=== PATIENT | male | born 1960 | race Caucasian/White ===

== ENCOUNTER 2018-11-06 20:51 | Inpatient (IN) ==
--- NOTE | 2018-11-06 21:57 | ED ---
Triage General Chief Complaint: Back Pain/Injury Time Seen by Provider: 11/06/18 21:44 Source: patient Limitations: no limitations Pre-Hospital Care Pre-Hospital Care Given: No History of Present Illness HPI narrative: 58-year-old man presents to the emergency department complaining of back pain, rating to both legs associated with perineal anesthesia, worsening bilateral lower extremity numbness, and severe pain down especially the left side. History of similar problems, steadily worsening the past several weeks. Patient will be taken to a medical bed. Will place orders for labs and MRI. Percocet for pain. Concern for cauda equina syndrome. Exam Narrative Exam: GENERAL: 58-year-old man, looks overall well. SKIN: Warm and dry. CARDIOVASCULAR: Warm and well perfused. RESPIRATORY: Normal rate and effort. MUSCULOSKELETAL: Full strength in the lower extremities. Brisk left patellar reflexes. Nearly absent right patellar bilateral Achilles. No clonus. Patient states significant sensory loss in both legs below the knee NEUROLOGICAL: Awake and alert. No gross deficits. Home Meds Home Medications Medication Instructions Recorded Confirmed levothyroxine 88 mcg PO DAILY 04/20/18 04/20/18 Previous Rx's Medication Instructions Recorded diclofenac sodium 50 mg PO TID #30 tab 09/03/18 Allergies Allergies Allergy/AdvReac Type Severity Reaction Status Date / Time aspirin Allergy Hives Verified 11/06/18 21:04 PCN Allergy Severe Cardiac Uncoded 09/03/18 00:17 Arrest Vital Signs Recall Vital Signs: Initial Documented Vital Signs Temperature 98.1 F 11/06/18 21:04 Pulse Rate 84 11/06/18 21:04 Respiratory Rate 18 11/06/18 21:04 Blood Pressure 186/98 H 11/06/18 21:04 Pulse Oximetry 100 11/06/18 21:04 Last Documented Vital Signs Temperature 98.1 F 11/06/18 21:04 Pulse Rate 84 11/06/18 21:04 Respiratory Rate 18 11/06/18 21:04 Blood Pressure 186/98 H 11/06/18 21:04 Pulse Oximetry 100 11/06/18 21:04 Vital Signs 3 l l l l 11/06/18 21:04 l l Height 180.34 cm l l Weight 81.647 kg l l BMI 25.1 l l BP 186/98 H l l Blood Pressure Location l l Position Sitting l l Respiration 18 l l Pulse 84 l l Pulse Source l l Temp 98.1 F l l Temp Source Oral l l Pulse Oximetry (%) 100 l l Oxygen Delivery Method l l Oxygen Flow Rate l l Comment [facility] Social History Social History Substance History: Past History Second Hand Smoke Exposure: Yes Smoking Status: Current every day smoker Tobacco Type: Cigarettes How Often Do You Have a Drink Containing Alcohol: Monthly or less Recent Travel in [facility] within the Last 8 Weeks: No Recent Out of Country Travel within the Last 8 Weeks: No Immunization History Tetanus Immunization: <5 Years
--- NOTE | 2018-11-06 22:43 | MR ---
EXAM DATE: 11/06/2018 10:32 PM EST AGE/SEX: 58 years / Male INDICATIONS: Radiculopathy. Low back pain with left radiculopathy. CLINICAL DATA: This is the patient's initial encounter. Patient reports that signs and symptoms have been present for 1 day and indicates a pain score of 5/10. MEDICAL/SURGICAL HISTORY: None. . Jaw surgery. COMPARISON: No prior exams available for comparison. TECHNIQUE: Multiplanar, multisequence MRI of the lumbar spine was performed without contrast. Patie nt was scanned in a sitting position; neutral, flexion, and extension scans were performed in the sa gittal plane. FINDINGS: The most caudal-appearing lumbar vertebra is numbered as L5. There is grade 1 anterolisthesis of L4 on L5. There are no compression deformities. There is moderate bone marrow edema involving the left L4 pedicle and articular facet. There is surrounding paraspinal edema posteriorly. There is mild reactive endplate edema at L4-5. There is diffuse disc desiccation. There is motion artifact which limits this study particularly the axial series. T12-L1: The thecal sac has a normal diameter. No evidence of disc bulge or protrusion. The neural foramina are patent bilaterally. L1-L2: The thecal sac has a normal diameter. No evidence of disc bulge or protrusion. The neural foramina are patent bilaterally. L2-L3: Mild diffuse disc bulge is noted. Mild left foraminal narrowing is suspected. There is no de finite canal stenosis. L3-L4: A diffuse disc bulge is present. This likely abuts the L4 nerve roots and L3 exiting nerves. No significant canal or foraminal narrowing. Axial images degraded by motion artifact. L4-L5: There is a broad-based central disc protrusion suspected superimposed on diffuse disc bulge. There is severe canal stenosis. There is facet arthropathy and severe left, moderate right foraminal narrowing. L5-S1: Minimal central disc bulge without canal or foraminal narrowing. CONCLUSION: 1. Motion artifact limits the study. 2. There is a large central disc protrusion at L4-5 resulting in severe canal stenosis and mass effe ct on the associated nerve roots at this level. 3. Mild degenerative changes are otherwise noted. Electronically signed by: Chandana Aguirre MD Board Certified Radiologist 11/06/2018 10:42 PM EST
[2018-11-06 23:16] LABS: Baso # (Auto) 0.1 th/mm3 (0.0-0.2); Baso % (Auto) 0.9 % (0.0-2.0); Eos # (Auto) 0.3 th/mm3 (0.0-0.4); Eos % (Auto) 4.7 % (0.0-4.0); Hematocrit 38.8 % (39.0-51.0); Hemoglobin 13.1 gm/dL (13.0-17.0); Lymph # (Auto) 1.7 th/mm3 (1.0-4.8); Lymph % (Auto) 27.4 % (9.0-44.0); Mean Corpuscular HGB Conc 33.8 % (32.0-36.0); Mean Corpuscular Volume 91.7 fL (80.0-100.0); Mono # (Auto) 0.7 th/mm3 (0.0-0.9); Mono % (Auto) 11.3 % (0.0-8.0); Neut # (Auto) 3.5 th/mm3 (1.8-7.7); Neut % (Auto) 55.7 % (16.0-70.0); Platelet Count 319 th/mm3 (150-450); Red Blood Count 4.23 mil/mm3 (4.50-5.90); Red Cell Distribution Width 13.8 % (11.6-17.2); White Blood Count 6.2 th/mm3 (4.0-11.0)
[2018-11-06 23:31] LABS: Albumin 4.3 g/dL (3.4-5.0); Aspartate Aminotransferase 54 U/L (15-37); Blood Urea Nitrogen 12 mg/dL (7-18); Calcium 9.2 mg/dL (8.5-10.1); Carbon Dioxide 25.5 meq/L (21.0-32.0); Glomerular Filtration Rate Greater Than 89 mL/min (>89); Glucose,Random 81 mg/dL (74-106)
[2018-11-06 23:32] LABS: Alanine Aminotransferase 50 U/L (12-78)
[2018-11-06 23:34] LABS: Alkaline Phosphatase 105 U/L (45-117); Total Protein 7.9 g/dL (6.4-8.2)
[2018-11-06] MEDS ORDERED: Acetaminophen 325 MG Tablet PO PRN (23:52)
[2018-11-06] MEDS ORDERED: Bisacodyl 10 MG Supp RECTAL PRN (23:52)
[2018-11-07 00:28] LABS: Anion Gap 9 meq/L (5-15); Chloride 101 meq/L (98-107); Sodium 135 meq/L (136-145)
--- NOTE | 2018-11-07 01:36 | P.HPIM ---
History of Present Illness Primary Care Physician: No Primary Care Physician History of Present Illness: 58-year-old male with a history of hypothyroidism who presents with a one month history of progressively worsening bilateral lower extremity weakness, burning paresthesias, numbness worse on the left, as well as a 3-week history of worsening saddle anesthesia, bilateral leg weakness with prolonged ambulation. Patient did not have a ride home from work today and was forced to walk home, however is unable to get more than a block before he has to lean forward to prevent his legs from giving out on him. Inpatient Certification: I certify that the inpatient services were ordered in accordance with Medicare regulations governing the order. This includes certification that hospital inpatient services are reasonable and necessary and in the case of services not specified as inpatient-only under 42 CFR 419.22(n), that they are appropriately provided as inpatient services in accordance to with the 2-midnight benchmark under 43 CFR 412.3(e) Estimated Total Length of Stay (Days): 2 Plans for Post Hospital Care: Not yet determined Review of Systems All other systems reviewed negative except as stated in HPI [facility] - History History Provided By: Patient - Medical History Medical History: Medical History (Last Reviewed 11/07/18 @ 01:26 by Devin Crawford MD) Hypothyroid - Surgical History Surgical History: Surgical History (Last Reviewed 11/07/18 @ 01:26 by Devin Crawford MD) No history of previous surgery - Family History Family History: Family History (Last Updated 11/07/18 @ 01:27 by Devin Crawford MD) Father Healthy adult male Mother Heart disease - Tobacco History Second Hand Smoke Exposure: Yes Tobacco Use In Past 30 Days: Yes Smoking Status: Current every day smoker Tobacco Type: Cigarettes - Alcohol History How Often Do You Have a Drink Containing Alcohol: Monthly or less - Substance Use History Substance History: Past History - Travel History Recent Travel in the [place] Within the Last 8 Weeks: No Recent Travel Out of the Country Within the Last 8 Weeks: No - Immunization History Tetanus Immunization: <5 Years Medications and Allergies Active Medications: Active Medications Acetaminophen (Tylenol) 650 mg PO Q4H PRN PRN Reason: Temp > 100.4 Al Hydroxide/Mg Hydroxide (Milk Of Magnesia Liq) 30 ml PO Q12H PRN PRN Reason: Mild Constipation Bisacodyl (Dulcolax Supp) 10 mg RECTAL DAILY PRN PRN Reason: SEVERE CONSITIPATION Dexamethasone Sodium Phosphate (Decadron Inj) 4 mg IV.PUSH Q6HR [facility] Last Admin: 11/07/18 00:01 Dose: Not Given Enalaprilat (Vasotec Inj) 1.25 mg IV.PUSH Q6H PRN PRN Reason: SBP>180, DBP>100, HR>65 Sodium Chloride (Ns Inj) 1,000 mls @ 100 mls/hr IV.CONT .Q10H [facility] Last Admin: 11/07/18 00:00 Dose: 100 mls/hr Lactulose (Lactulose Liq) 30 ml PO DAILY PRN PRN Reason: SEVERE CONSITIPATION Levothyroxine Sodium (Synthroid) 88 mcg PO DAILY@0600 [facility] Ondansetron HCl (Zofran Inj) 4 mg IV.PUSH Q6H PRN PRN Reason: NAUSEA OR VOMITING Sennosides (Senokot) 17.2 mg PO Q12H PRN PRN Reason: Moderate Constipation Sodium Chloride (Ns Flush) 2 ml IV.FLUSH BID LOKESH Sodium Chloride (Ns Flush) 2 ml IV.FLUSH PRN PRN PRN Reason: FLUSH AFTER USING IV ACCESS Allergies Allergy/AdvReac Type Severity Reaction Status Date / Time aspirin Allergy Hives Verified 11/06/18 21:04 PCN Allergy Severe Cardiac Uncoded 09/03/18 00:17 Arrest Home Medications Medication Instructions Recorded Confirmed Type levothyroxine 88 mcg PO DAILY 04/20/18 11/06/18 History Physical Exam Vital signs: Vital Signs 11/06/18 21:04 11/07/18 00:46 Temperature 98.1 F Pulse Rate 84 Respiratory Rate 18 20 Blood Pressure 186/98 H Pulse Oximetry 100 Intake & Output 11/06/18 11/06/18 11/07/18 06:59 18:59 06:59 Weight 81.647 kg Narrative: GENERAL: Patient lying in bed. Appears comfortable. Alert and oriented x3. SKIN: Warm and dry. HEAD: Atraumatic. Normocephalic. EYES: Pupils equal and round. No scleral icterus. No injection or drainage. ENT: No nasal bleeding or discharge. Mucous membranes pink and moist. NECK: Trachea midline. No JVD. CARDIOVASCULAR: Regular rate and rhythm. RESPIRATORY: No accessory muscle use. Clear to auscultation. Breath sounds equal bilaterally. GASTROINTESTINAL: Abdomen soft, non-tender, nondistended. Hepatic and splenic margins not palpable. MUSCULOSKELETAL: Extremities without clubbing, cyanosis, or edema. No obvious deformities. NEUROLOGICAL: Awake and alert. No obvious cranial nerve deficits. Motor grossly within normal limits. Five out of 5 muscle strength in the arm. Bilateral leg weakness, decreased sensation. Normal speech. PSYCHIATRIC: Appropriate mood and affect; insight and judgment normal. Results - Labs CBC & Chem 7: 11/06/18 23:00 11/06/18 23:00 Labs: Short CBC 11/06/18 Range/Units 23:00 WBC 6.2 (4.0-11.0) th/mm3 Hgb 13.1 (13.0-17.0) gm/dL Hct 38.8 L (39.0-51.0) % Plt Count 319 (150-450) th/mm3 BMP 11/06/18 23:00 Sodium 135 L Potassium 4.0 Chloride 101 Carbon Dioxide 25.5 BUN 12 Creatinine 0.75 Calcium 9.2 Liver Function 11/06/18 Range/Units 23:00 Total Bilirubin 0.6 (0.2-1.0) mg/dL AST 54 H (15-37) U/L ALT 50 (12-78) U/L Alkaline Phosphatase 105 (45-117) U/L Albumin 4.3 (3.4-5.0) g/dL - Imaging Impressions Lumbar Spine MRI 11/06/18 21:52 CONCLUSION: 1. Motion artifact limits the study. 2. There is a large central disc protrusion at L4-5 resulting in severe canal stenosis and mass effect on the associated nerve roots at this level. 3. Mild degenerative changes are otherwise noted. Caprini VTE Risk Assessment Caprini VTE Risk Assessment: No/Low Risk (score <= 1) Caprini Risk Assessment Model: Point Value = 1 Point Value = 2 Point Value = 3 Point Value = 5 Age 41-60 Minor surgery BMI > 25 kg/m2 Swollen legs Varicose veins or History of unexplained or recurrent spontaneous Oral contraceptives or hormone replacement Sepsis (< 1 month) Serious lung disease, including pneumonia (< 1 month) Abnormal pulmonary function Acute myocardial infarction Congestive heart failure (< 1 month) History of inflammatory bowel disease Medical patient at bed rest Age 61-74 Arthroscopic surgery Major open surgery (> 45 min) Laparoscopic surgery (> 45 min) Malignancy Confined to bed (> 72 hours) Immobilizing plaster cast Central venous access Age >= 75 History of VTE Family history of VTE Factor V Leiden Prothrombin [id number] Lupus anticoagulant Anticardiolipin antibodies Elevated serum homocysteine Heparin-induced thrombocytopenia Other congenital or acquired thrombophilia Stroke (< 1 month) Elective arthroplasty Hip, pelvis, or leg fracture Acute spinal cord injury (< 1 month) Prophylaxis Regimen: Total Risk Factor Score Risk Level Prophylaxis Regimen 0-1 Low Early ambulation 2 Moderate Order ONE of the following: *Sequential Compression Device (SCD) *Heparin 5000 units SQ BID 3-4 Higher Order ONE of the following medications: *Heparin 5000 units SQ TID *Enoxaparin/Lovenox 40 mg SQ daily (WT < 150 kg, CrCl > 30 mL/min) *Enoxaparin/Lovenox 30 mg SQ daily (WT < 150 kg, CrCl > 10-29 mL/min) *Enoxaparin/Lovenox 30 mg SQ BID (WT < 150 kg, CrCl > 30 mL/min) AND/OR *Sequential Compression Device (SCD) 5 or more Highest Order ONE of the following medications: *Heparin 5000 units SQ TID (Preferred with Epidurals) *Enoxaparin/Lovenox 40 mg SQ daily (WT < 150 kg, CrCl > 30 mL/min) *Enoxaparin/Lovenox 30 mg SQ daily (WT < 150 kg, CrCl > 10-29 mL/min) *Enoxaparin/Lovenox 30 mg SQ BID (WT < 150 kg, CrCl > 30 mL/min) AND *Sequential Compression Device (SCD) Assessment and Plan - Plan //Acute, severe spinal canal stenosis -With saddle anesthesia. MRI shows large central disc protrusion at L4-5 resulting in severe canal stenosis and mass-effect on associated nerve roots. The ER has discussed with neurosurgery who is planning for surgery in the morning. Will place on IV dexamethasone. Neurochecks. //Chronic hypothyroidism. Continue home medication. Discussed Condition With: Patient, nurse, ED physician.
[2018-11-07] MEDS: Morphine Sulfate Inj 2 MG/ML Vial IV.PUSH PRN ×6 (05:03→21:18)
--- NOTE | 2018-11-07 05:13 | ED ---
HPI General Chief Complaint: Back Pain/Injury Stated Complaint: back Pain Time Seen by Provider: 11/06/18 21:44 Source: patient Limitations: no limitations History of Present Illness HPI Narrative: 58-year-old male presents to the emergency department for progressively worsening low back pain with paresthesias of the lower extremities and difficulty with ambulation. Patient denies any bladder or bowel dysfunction. Patient denies any injury or fall. Patient states he presents at this time as he can no longer ambulate. Patient was initially evaluated in triage and MRI was ordered in view of concern for significant lumbar disc disease and concern for need for evaluation for cauda equina syndrome. Patient's MRI was identified to be markedly abnormal. Patient denies other concerns or complaints. Patient does admit to alcohol use. Patient is no longer followed by a primary care provider. Complaint: Reports back pain Onset (ago): month(s) Duration: Reports progressively worsening Location: Reports lumbar spine Severity: severe Quality: Reports dull, aching and tingling Radiation: Reports left leg and right leg Severity scale (1-10): 9 Relieving factors: none Exacerbating factors: movement and walking Associated symptoms: Reports weakness, numbness, difficulty walking, loss of sensation in lower extremities and parasthesias; Denies increased urinary urgency, increased urinary frequency, urinary incontinence, fecal incontinence, a change in bowel habits, fever, chills, abdominal pain, dysuria, hematuria, arthralgias and myalgias Treatments prior to arrival: Denies cold therapy, heat therapy, NSAIDS, acetaminophen, ASA, other medications and prescription analgesics Related Data Home Medications Medication Instructions Recorded Confirmed levothyroxine 88 mcg PO DAILY 04/20/18 11/06/18 Allergies Allergy/AdvReac Type Severity Reaction Status Date / Time aspirin Allergy Hives Verified 11/06/18 21:04 PCN Allergy Severe Cardiac Uncoded 09/03/18 00:17 Arrest Review of Systems ROS: all other systems reviewed are negative PENDING SALE TO [facility] Medical History Medical History Hypothyroid (Acute) Surgical History Surgical History No history of previous surgery (Acute) Family History Family History Father Healthy adult male Mother Heart disease Social History Social History Substance History: Active Abuse (Patient is an active drug user. He tells me that he last used drugs about 48 hours ago. He uses cocaine and methamphetamine. He denies needle use.) Second Hand Smoke Exposure: No Smoking Status: Never smoker Tobacco Type: Cigarettes How Often Do You Have a Drink Containing Alcohol: 2 to 4 times a month Recent Travel in [facility] within the Last 8 Weeks: No Recent Out of Country Travel within the Last 8 Weeks: No Immunization History Tetanus Immunization: <5 Years Exam Narrative Exam Narrative: GENERAL: Well-nourished, well-developed patient. SKIN: Focused skin assessment warm/dry. HEAD: Normocephalic. EYES: No scleral icterus. No injection or drainage. NECK: Supple, trachea midline. No JVD or lymphadenopathy. CARDIOVASCULAR: Regular rate and rhythm without murmurs, gallops, or rubs. RESPIRATORY: Breath sounds equal bilaterally. No accessory muscle use. GASTROINTESTINAL: Abdomen soft, non-tender, nondistended. Rectal exam: Normal sphincter tone MUSCULOSKELETAL: No cyanosis, or edema. Bilateral lower extremity weakness with pain on attempted straight leg raising. DTRs 2-3+ at knees and ankles no clonus. Sensory exam intact. BACK: Nontender without obvious deformity except for tenderness to palpation along the lower lumbar spine without bony step-off. No CVA tenderness. Course Initial Documented Vital Signs Temperature 98.1 F 11/06/18 21:04 Pulse Rate 84 11/06/18 21:04 Respiratory Rate 18 11/06/18 21:04 Blood Pressure 186/98 H 11/06/18 21:04 Pulse Oximetry 100 11/06/18 21:04 Last Documented Vital Signs Temperature 97.4 F L 11/08/18 07:56 Pulse Rate 59 L 11/08/18 07:56 Respiratory Rate 18 11/08/18 07:56 Blood Pressure 120/63 11/08/18 07:56 Pulse Oximetry 98 11/08/18 07:56 Medical Decision Making MDM Narrative Medical decision making narrative: 58-year-old male with lumbar radiculopathy concerning for cauda equina syndrome with intact sphincter tone and no evidence of bladder or bowel dysfunction at this time. However MRI shows marked abnormality with large central disc protrusion at L4-5 with severe canal stenosis and mass-effect on the nerve root at this level per reading radiologist. This information was discussed with on-call neurosurgeon who plans to review imaging study is aware of plan for admission of this patient to medicine service with consult to neurosurgery. Patient administered Decadron 6 mg IV this was discussed with on-call neurosurgeon Dr. Prajapati. Callback from Dr. Prajapati, request patient be kept n.p.o. as he has had opportunity to review imaging study and plans to do decompressive surgery tomorrow. Patient was discussed with on-call medicine physician Dr. Crawford who will accept patient for admission and is aware of neurosurgery consult. Medical Screen Exam Complete: Yes Emergency Medical Condition: Yes Differential Diagnosis Differential Diagnosis: Lumbar radiculopathy, cauda equina syndrome, mass Medical Records Medical records reviewed: Yes I reviewed the patient's medical records. Lab Data Lab results reviewed: Yes I reviewed the patient's lab results. Result diagrams: 11/07/18 06:10 11/07/18 06:10 Lab Results 11/06/18 11/06/18 11/07/18 Range/Units 23:00 23:00 06:10 WBC 6.2 4.1 (4.0-11.0) th/mm3 RBC 4.23 L 4.18 L (4.50-5.90) mil/mm3 Hgb 13.1 13.0 (13.0-17.0) gm/dL Hct 38.8 L 39.2 (39.0-51.0) % MCV 91.7 93.6 (80.0-100.0) fL MCH 31.0 31.2 (27.0-34.0) pg MCHC 33.8 33.3 (32.0-36.0) % RDW 13.8 13.8 (11.6-17.2) % Plt Count 319 314 (150-450) th/mm3 MPV 8.0 8.3 (7.0-11.0) fL Neut % (Auto) 55.7 85.2 H (16.0-70.0) % Lymph % (Auto) 27.4 13.0 (9.0-44.0) % Marin % (Auto) 11.3 H 1.3 (0.0-8.0) % Eos % (Auto) 4.7 H 0.2 (0.0-4.0) % Baso % (Auto) 0.9 0.3 (0.0-2.0) % Neut # (Auto) 3.5 3.5 (1.8-7.7) th/mm3 Lymph # (Auto) 1.7 0.5 L (1.0-4.8) th/mm3 Marin # (Auto) 0.7 0.1 (0.0-0.9) th/mm3 Eos # (Auto) 0.3 0.0 (0.0-0.4) th/mm3 Baso # (Auto) 0.1 0.0 (0.0-0.2) th/mm3 WBC Differential . . Differential Comment Auto diff final Auto diff final Sodium 135 L (136-145) meq/L Potassium 4.0 (3.5-5.1) meq/L Chloride 101 (98-107) meq/L Carbon Dioxide 25.5 (21.0-32.0) meq/L Anion Gap 9 (5-15) meq/L BUN 12 (7-18) mg/dL Creatinine 0.75 (0.60-1.30) mg/dL Estimated GFR Greater than 89 (>89) mL/min Random Glucose 81 (74-106) mg/dL Calcium 9.2 (8.5-10.1) mg/dL Total Bilirubin 0.6 (0.2-1.0) mg/dL AST 54 H (15-37) U/L ALT 50 (12-78) U/L Alkaline Phosphatase 105 (45-117) U/L Total Protein 7.9 (6.4-8.2) g/dL Albumin 4.3 (3.4-5.0) g/dL 11/07/18 Range/Units 06:10 WBC (4.0-11.0) th/mm3 RBC (4.50-5.90) mil/mm3 Hgb (13.0-17.0) gm/dL Hct (39.0-51.0) % MCV (80.0-100.0) fL MCH (27.0-34.0) pg MCHC (32.0-36.0) % RDW (11.6-17.2) % Plt Count (150-450) th/mm3 MPV (7.0-11.0) fL Neut % (Auto) (16.0-70.0) % Lymph % (Auto) (9.0-44.0) % Marin % (Auto) (0.0-8.0) % Eos % (Auto) (0.0-4.0) % Baso % (Auto) (0.0-2.0) % Neut # (Auto) (1.8-7.7) th/mm3 Lymph # (Auto) (1.0-4.8) th/mm3 Marin # (Auto) (0.0-0.9) th/mm3 Eos # (Auto) (0.0-0.4) th/mm3 Baso # (Auto) (0.0-0.2) th/mm3 WBC Differential Differential Comment Sodium 138 (136-145) meq/L Potassium 4.0 (3.5-5.1) meq/L Chloride 103 (98-107) meq/L Carbon Dioxide 25.2 (21.0-32.0) meq/L Anion Gap 10 (5-15) meq/L BUN 13 (7-18) mg/dL Creatinine 0.69 (0.60-1.30) mg/dL Estimated GFR Greater than 89 (>89) mL/min Random Glucose 91 (74-106) mg/dL Calcium 8.9 (8.5-10.1) mg/dL Total Bilirubin 0.4 (0.2-1.0) mg/dL AST 51 H (15-37) U/L ALT 47 (12-78) U/L Alkaline Phosphatase 98 (45-117) U/L Total Protein 7.5 (6.4-8.2) g/dL Albumin 3.8 (3.4-5.0) g/dL Imaging Data Radiologist's impression: Lumbar Spine MRI 11/06/18 21:52 CONCLUSION: 1. Motion artifact limits the study. 2. There is a large central disc protrusion at L4-5 resulting in severe canal stenosis and mass effect on the associated nerve roots at this level. 3. Mild degenerative changes are otherwise noted. Lumbar Spine X-Ray 11/07/18 00:00 CONCLUSION: Probe at L4-5 Chest X-Ray 11/07/18 09:00 CONCLUSION: No evidence of acute cardiopulmonary disease. Discharge Plan Discharge Disposition Patient Disposition: ED Admit(ED Internal Use Only) Discharge Condition Condition: Stable Discharge Order Discharge Orders: ED Use Only Admit Order (Routine); Ordered 11/06/18 Ordered By: Justyna Mcmahon Discharge Details Diagnosis: Lumbar radiculopathy Physicians Team ED Provider: Justyna Mcmahon Primary Care Provider: Primary Care Niki Carrion Attending Provider: Holger Steen Other Providers: Renny Prajapati Status ED Status: Left Department Discharge Information Discharge Date/Time: 11/07/18 03:57
[2018-11-07] MEDS: Levothyroxine 88 MCG Tablet PO SCH (06:07)
[2018-11-07 07:14] LABS: Baso % (Auto) 0.3 % (0.0-2.0); Eos % (Auto) 0.2 % (0.0-4.0); Hematocrit 39.2 % (39.0-51.0); Lymph # (Auto) 0.5 th/mm3 (1.0-4.8); Mean Corpuscular HGB Conc 33.3 % (32.0-36.0); Mean Corpuscular Hemoglobin 31.2 pg (27.0-34.0); Mean Corpuscular Volume 93.6 fL (80.0-100.0); Mean Platelet Volume 8.3 fL (7.0-11.0); Mono # (Auto) 0.1 th/mm3 (0.0-0.9); Mono % (Auto) 1.3 % (0.0-8.0); Neut # (Auto) 3.5 th/mm3 (1.8-7.7); Neut % (Auto) 85.2 % (16.0-70.0); Platelet Count 314 th/mm3 (150-450); Red Blood Count 4.18 mil/mm3 (4.50-5.90); Red Cell Distribution Width 13.8 % (11.6-17.2); White Blood Count 4.1 th/mm3 (4.0-11.0)
[2018-11-07 07:34] LABS: Albumin 3.8 g/dL (3.4-5.0); Anion Gap 10 meq/L (5-15); Aspartate Aminotransferase 51 U/L (15-37); Blood Urea Nitrogen 13 mg/dL (7-18); Calcium 8.9 mg/dL (8.5-10.1); Carbon Dioxide 25.2 meq/L (21.0-32.0); Chloride 103 meq/L (98-107); Glomerular Filtration Rate Greater Than 89 mL/min (>89); Glucose,Random 91 mg/dL (74-106); Sodium 138 meq/L (136-145)
[2018-11-07 07:36] LABS: Alanine Aminotransferase 47 U/L (12-78)
[2018-11-07 07:38] LABS: Alkaline Phosphatase 98 U/L (45-117); Total Protein 7.5 g/dL (6.4-8.2)
[2018-11-07] MEDS ORDERED: Influenza (Quadrivalent) Vaccine 0.5 ML Syringe IM ONE (08:00)
[2018-11-07] MEDS: Sod Chloride 0.9% Inj 1,000 ML IV.CONT SCH ×3 (09:26→21:16)
--- NOTE | 2018-11-07 09:35 | XR ---
EXAM DATE: 11/07/2018 9:26 AM EST AGE/SEX: 58 years / Male INDICATIONS: Evaluate for pneumonia, pneumothorax and communicable disease.Pre surgery Lumbar spine HNP CLINICAL DATA: This is the patient's initial encounter. Patient reports that signs and symptoms have been present for 2 days and indicates a pain score of 0/10. MEDICAL/SURGICAL HISTORY: None. None. COMPARISON: No prior exams available for comparison. FINDINGS: A single AP view of the chest demonstrates the lungs to be symmetrically aerated without evidence of mass, infiltrate or effusion. The cardiomediastinal contours are unremarkable. Osseous structures a re intact. CONCLUSION: No evidence of acute cardiopulmonary disease. Electronically signed by: Hany Whalen MD Board Certified Radiologist 11/07/2018 9:34 AM EST
[2018-11-07] MEDS ORDERED: Lidocaine PF 1% Inj 5 ML Syringe OTHER ONE (10:44)
[2018-11-07] MEDS ORDERED: Normosol-R pH 7.4 Inj 1,000 ML IV.CONT ONE (10:44)
[2018-11-07] MEDS ORDERED: Phenylephrine/NS 1000 MCG/10ML Syringe IV.PUSH ONE (10:44)
[2018-11-07] MEDS ORDERED: Gelatin Size 100 Topical Foam ONE (10:49)
[2018-11-07] MEDS ORDERED: Bupivacaine/Epinephrine Inj 0.25% 50 ML Vial ONE (10:49)
[2018-11-07] MEDS ORDERED: Thrombin Topical Soln 5,000 UNIT Vial TOPICAL ONE (10:49)
--- NOTE | 2018-11-07 10:59 | P.PN ---
Subjective Interval history: Follow-up acute severe spinal cord stenosis November 07, 2018-patient seen and examined, he was seen by neurosurgery and plan for repair/laminectomy Physical Exam Vital signs: Vital Signs 11/06/18 21:04 11/06/18 23:52 11/07/18 00:46 Temperature 98.1 F Pulse Rate 84 86 Respiratory Rate 18 20 20 Blood Pressure 186/98 H 134/70 Pulse Oximetry 100 98 11/07/18 04:00 11/07/18 07:18 11/07/18 07:43 Temperature 98.1 F 97.6 F Pulse Rate 92 H 64 Respiratory Rate 18 5 L 18 Blood Pressure 152/73 H 141/70 H Pulse Oximetry 96 94 L 11/07/18 10:01 Temperature Pulse Rate Respiratory Rate 16 Blood Pressure Pulse Oximetry Intake & Output 11/06/18 11/07/18 11/07/18 18:59 06:59 18:59 Intake Total 1000 / 1000 Output Total 1000 / 1000 Balance 0 / 0 Weight 69.9 kg Intake: IV 1000 / 1000 NS Inj 1,000 ML @ 100 mls/hr IV 1000 / 1000 .CONT .Q10H [facility] Rx#:[id number] Oral 0 / 0 Output: Urine 1000 / 1000 Other: # Voids 1 Weight On Admission 69.9 kg Narrative: GENERAL: NAD SKIN: Warm and dry. HEAD: Normocephalic. EYES: No scleral icterus. No injection or drainage. NECK: Supple, trachea midline. No JVD or lymphadenopathy. CARDIOVASCULAR: Regular rate and rhythm without murmurs, gallops, or rubs. RESPIRATORY: Breath sounds equal bilaterally. No accessory muscle use. GASTROINTESTINAL: Abdomen soft, non-tender, nondistended. MUSCULOSKELETAL: No cyanosis, or edema. BACK: Nontender without obvious deformity. No CVA tenderness. Results - Labs CBC & Chem 7: 11/07/18 06:10 11/07/18 06:10 Laboratory Results - last 24 hr 11/06/18 11/06/18 11/07/18 23:00 23:00 06:10 WBC 6.2 4.1 RBC 4.23 L 4.18 L Hgb 13.1 13.0 Hct 38.8 L 39.2 MCV 91.7 93.6 MCH 31.0 31.2 MCHC 33.8 33.3 RDW 13.8 13.8 Plt Count 319 314 MPV 8.0 8.3 Neut % (Auto) 55.7 85.2 H Lymph % (Auto) 27.4 13.0 [place] % (Auto) 11.3 H 1.3 Eos % (Auto) 4.7 H 0.2 Baso % (Auto) 0.9 0.3 Neut # (Auto) 3.5 3.5 Lymph # (Auto) 1.7 0.5 L [place] # (Auto) 0.7 0.1 Eos # (Auto) 0.3 0.0 Baso # (Auto) 0.1 0.0 WBC Differential . . Differential Comment Auto diff final Auto diff final Sodium 135 L Potassium 4.0 Chloride 101 Carbon Dioxide 25.5 Anion Gap 9 BUN 12 Creatinine 0.75 Estimated GFR Greater than 89 Random Glucose 81 Calcium 9.2 Total Bilirubin 0.6 AST 54 H ALT 50 Alkaline Phosphatase 105 Total Protein 7.9 Albumin 4.3 11/07/18 06:10 WBC RBC Hgb Hct MCV MCH MCHC RDW Plt Count MPV Neut % (Auto) Lymph % (Auto) [place] % (Auto) Eos % (Auto) Baso % (Auto) Neut # (Auto) Lymph # (Auto) [place] # (Auto) Eos # (Auto) Baso # (Auto) WBC Differential Differential Comment Sodium 138 Potassium 4.0 Chloride 103 Carbon Dioxide 25.2 Anion Gap 10 BUN 13 Creatinine 0.69 Estimated GFR Greater than 89 Random Glucose 91 Calcium 8.9 Total Bilirubin 0.4 AST 51 H ALT 47 Alkaline Phosphatase 98 Total Protein 7.5 Albumin 3.8 - Imaging Impressions Lumbar Spine MRI 11/06/18 21:52 CONCLUSION: 1. Motion artifact limits the study. 2. There is a large central disc protrusion at L4-5 resulting in severe canal stenosis and mass effect on the associated nerve roots at this level. 3. Mild degenerative changes are otherwise noted. Chest X-Ray 11/07/18 09:00 CONCLUSION: No evidence of acute cardiopulmonary disease. Assessment and Plan - Plan 58-year-old man with Acute, severe L4-L5 spinal canal stenosis Appreciate input from neurosurgery Continue with IV Decadron PT/OT to treat Chronic hypothyroidism. Continue home medication.
[2018-11-07] MEDS ORDERED: Empty Container, Bottle 1 EACH, Sod Chloride 0.9% Inj 1,000 ML, Bacitracin Inj 50,000 UNIT IRRIGATION ONE ×3 (12:13)
--- NOTE | 2018-11-07 12:31 | XR ---
EXAM DATE: 11/07/2018 12:27 PM EST AGE/SEX: 58 years / Male INDICATIONS: Pre Laminectomy L4-L5. CLINICAL DATA: This is the patient's initial encounter. Patient reports that signs and symptoms have been present for 1 day and indicates a pain score of Nonresponsive. MEDICAL/SURGICAL HISTORY: None. None. COMPARISON: [facility] [place] L[place]BAR [place] W/O CONTRAST, 11/06/2018. . FINDINGS: Metallic probe is directed at L4-5 CONCLUSION: Probe at L4-5 Electronically signed by: Jed Patel MD Board Certified Radiologist 11/07/2018 12:30 PM EST
--- NOTE | 2018-11-07 13:09 | ECG ---
Date Performed: 11/07/2018 Time Performed: 09:48:26 PTAGE: 58 years EKG: Sinus rhythm NONSPECIFIC T-WAVE ABNORMALITY PROLONGED QT INTERVAL ABNORMAL ECG PREVIOUS TRACING : 10/16/2002 01.03 Since the previous tracing, no significant change noted DOCTOR: Gomez Rdz Interpretating Date/Time 11/07/2018 13:07:01
[2018-11-07] MEDS ORDERED: fentaNYL Citrate Inj 100 MCG/2 ML Ampul ONE (13:12)
[2018-11-07] MEDS ORDERED: *morphine SULFATE 4 MG/ML PERIprocedure ONLY ONE (13:19)
--- NOTE | 2018-11-07 13:27 | P.CONNS ---
History of Present Illness Service: Neurosurgery Consult date: 11/07/18 Primary Care Provider: No Primary Care Physician Chief Complaint: Possible cauda equina syndrome History of Present Illness: This is a 58-year-old gentleman, homeless and with history of drug abuse, who presents with a one-month history of worsening lower extremity weakness, paresthesias, and saddle anesthesia. He states that for more than a year he has had "pinched nerve "symptoms, but that they have been worsening over the last 3 weeks. He has frequent cramping pain in his lower extremities, and cannot walk more than 1 block before his legs give out from weakness. His symptoms are relieved by leaning forward and sitting down. Over the last 3 weeks, he has also had trouble feeling his perineum when he defecates, though he still can control his bowel and bladder function and has not been incontinent. He presented to the ER with these complaints, and MRI imaging revealed focal severe lumbar stenosis at the L4/5 interspace due to a combination of disc bulge and severe facet/ligamentum hypertrophy. Neurosurgery was consulted to assess him. Review of Systems 10 system review conducted and negative except as documented here PMFSH - History History Provided By: Patient - Medical History Medical History: Medical History (Last Reviewed 11/07/18 @ 13:18 by Dora Clancy) Hypothyroid - Surgical History Surgical History: Surgical History (Last Reviewed 11/07/18 @ 13:18 by Dora Clancy) No history of previous surgery - Family History Family History: Family History (Last Reviewed 11/07/18 @ 13:18 by Dora Clancy) Father Healthy adult male Mother Heart disease - Tobacco History Second Hand Smoke Exposure: No Tobacco Use In Past 30 Days: Yes Smoking Status: Never smoker Tobacco Type: Cigarettes - Alcohol History How Often Do You Have a Drink Containing Alcohol: 2 to 4 times a month - Substance Use History Substance History: Active Abuse (Patient is an active drug user. He tells me that he last used drugs about 48 hours ago. He uses cocaine and methamphetamine. He denies needle use.) - Travel History Recent Travel in the [facility] Within the Last 8 Weeks: No Recent Travel Out of the Country Within the Last 8 Weeks: No - Immunization History Tetanus Immunization: <5 Years Tetanus Immunization Year if Known: 2016 Hx Influenza Vaccine This Season: No Medications and Allergies Active Medications: Active Medications Acetaminophen (Tylenol) 650 mg PO Q4H PRN PRN Reason: Temp > 100.4 Al Hydroxide/Mg Hydroxide (Milk Of Magnesia Liq) 30 ml PO Q12H PRN PRN Reason: Mild Constipation Bisacodyl (Dulcolax Supp) 10 mg RECTAL DAILY PRN PRN Reason: SEVERE CONSITIPATION Dexamethasone Sodium Phosphate (Decadron Inj) 4 mg IV.PUSH Q6HR [facility] Last Admin: 11/07/18 11:19 Dose: Not Given Enalaprilat (Vasotec Inj) 1.25 mg IV.PUSH Q6H PRN PRN Reason: SBP>180, DBP>100, HR>65 Sodium Chloride (Ns Inj) 1,000 mls @ 100 mls/hr IV.CONT .Q10H [facility] Last Infusion: 11/07/18 10:16 Dose: Infused Influenza Virus Vaccine (Fluarix (Quad) Vaccine Inj) 0.5 ml IM .ONCE ONE Stop: 11/08/18 09:01 Lactulose (Lactulose Liq) 30 ml PO DAILY PRN PRN Reason: SEVERE CONSITIPATION Levothyroxine Sodium (Synthroid) 88 mcg PO DAILY@0600 [facility] Last Admin: 11/07/18 06:07 Dose: 88 mcg Morphine Sulfate (Morphine Inj) 2 mg IV.PUSH Q3H PRN PRN Reason: pain 1-10 while NPO Last Admin: 11/07/18 09:49 Dose: 2 mg Ondansetron HCl (Zofran Inj) 4 mg IV.PUSH Q6H PRN PRN Reason: NAUSEA OR VOMITING Sennosides (Senokot) 17.2 mg PO Q12H PRN PRN Reason: Moderate Constipation Sodium Chloride (Ns Flush) 2 ml IV.FLUSH BID [facility] Last Admin: 11/07/18 08:03 Dose: 2 ml Sodium Chloride (Ns Flush) 2 ml IV.FLUSH PRN PRN PRN Reason: FLUSH AFTER USING IV ACCESS Last Admin: 11/07/18 05:04 Dose: 2 ml Allergies Allergy/AdvReac Type Severity Reaction Status Date / Time aspirin Allergy Hives Verified 11/06/18 21:04 PCN Allergy Severe Cardiac Uncoded 09/03/18 00:17 Arrest Home Medications Medication Instructions Recorded Confirmed Type levothyroxine 88 mcg PO DAILY 04/20/18 11/06/18 History Exam Vital signs: Vital Signs 11/06/18 21:04 11/06/18 23:52 11/07/18 00:46 Temperature 98.1 F Pulse Rate 84 86 Respiratory Rate 18 20 20 Blood Pressure 186/98 H 134/70 Pulse Oximetry 100 98 11/07/18 04:00 11/07/18 07:18 11/07/18 07:43 Temperature 98.1 F 97.6 F Pulse Rate 92 H 64 Respiratory Rate 18 5 L 18 Blood Pressure 152/73 H 141/70 H Pulse Oximetry 96 94 L 11/07/18 10:01 11/07/18 13:02 Temperature 97.7 F Pulse Rate 84 Respiratory Rate 16 13 Blood Pressure 129/74 Pulse Oximetry 99 Intake & Output 11/06/18 11/07/18 11/07/18 18:59 06:59 18:59 Intake Total 1500 / 1500 Output Total 1110 / 1110 Balance 390 / 390 Weight 69.9 kg Intake: IV 1000 / 1000 NS Inj 1,000 ML @ 100 mls/hr IV 1000 / 1000 .CONT .Q10H [facility] Rx#:[id number] Oral 0 / 0 Anesthesia Amount 500 / 500 Output: Urine 1000 / 1000 Estimated Blood Loss 10 / 10 Urine Amount (Catheter) 100 / 100 Indwelling Urethral Catheter 100 / 100 Other: # Voids 1 Weight On Admission 69.9 kg - Routine Neurological Exam Alert and conversant. Oriented x3. Pupils equal. Face symmetric. Tongue is midline. 5/5 in the upper extremities bilaterally. 5/5 in the lower extremities bilaterally, but limited by cramping pain and decreased range of motion due to discomfort. He has subjective decreased sensation in the feet bilaterally as well as in the perineal region. During the exam, he stated that he had not urinated since yesterday and that he was unable to do so this morning. Results - Laboratory Findings CBC and BMP: 11/07/18 06:10 11/07/18 06:10 Abnormal lab findings: Abnormal Labs 11/06/18 11/06/18 11/07/18 23:00 23:00 06:10 RBC 4.23 L 4.18 L Hct 38.8 L Neut % (Auto) 85.2 H [place] % (Auto) 11.3 H Eos % (Auto) 4.7 H Lymph # (Auto) 0.5 L Sodium 135 L AST 54 H 11/07/18 06:10 RBC Hct Neut % (Auto) [place] % (Auto) Eos % (Auto) Lymph # (Auto) Sodium AST 51 H - Diagnostic Findings Additional findings: MRI lumbar spine: Degenerative disease throughout, but focally severe at L4/5, where there is a moderate size disc herniation as well as severe ligamentum flavum and facet hypertrophy, resulting in complete obliteration of the spinal canal at that level. The remainder of the lumbar spine has a widely patent canal. Assessment and Plan - Plan Mr. Almeida is a homeless gentleman who is a current user of methamphetamine and cocaine, presenting with 3 weeks of symptoms consistent with cauda equina syndrome. His MRI reveals focal severe lumbar stenosis at L4/5. I feel that surgical decompression of the nerve roots at that level is indicated. I had a lengthy discussion about this with the patient, as well as with the patient's sister by phone, and both of them are in agreement to proceed with surgery. I explained the risks, including bleeding, infection, CSF leak, persistent symptoms, nerve damage, paralysis, weakness, sensory deficit, sexual dysfunction , , etc. The patient is aware that his current symptoms may be slow or incomplete to improve following surgery. However, I believe that he is likely to worsen and continue to lose function without surgical decompression, and for this reason he wishes to proceed. Plan for OR today.
--- NOTE | 2018-11-07 13:34 | P.OP ---
Preoperative Diagnosis: Cauda equina syndrome due to L4/5 lumbar stenosis Postoperative Diagnosis: Same Date of procedure: 11/07/18 Procedure: L4/5 laminectomies for decompression of cauda equina Anesthesia: GETA Surgeon: Renny Prajapati MD Estimated blood loss (mL): 10 Operation and Findings: The patient was identified in the preoperative holding area and brought into the OR #4. General endotracheal anesthesia was induced. The patient was positioned prone on a Ivan frame, and care was taken to pad all pressure points. Fluoroscopy was used to localize the L4/5 level, which was marked. The lumbar region was clipped, cleaned, prepped, and draped in the usual sterile fashion. The patient had a penicillin allergy and 1 g of vancomycin was administered. Local anesthetic was infiltrated. A [facility] timeout was performed. The incision was opened sharply with a 15 blade and carried deep using the Bovie. Using subperiosteal dissection, we elevated the paraspinal musculature away from the posterior elements of L4 and L5 bilaterally. Another fluoroscopy shot was taken to confirm the appropriate level. Laminectomies of L4 and L5 were now carried out using a combination of rongeurs and high-speed drill. I left the most superior portion of the L4 lamina and spinous process and the most inferior portion of the L5 lamina and spinous process intact to preserve the interspinous ligaments and the posterior tension band at those levels. After the laminectomy's were performed, we could appreciate severe hypertrophy of the ligamentum flavum and the medial facet capsules into the canal. We carefully identified normal dura above and below this, and carefully dissected the hypertrophied tissue away from the dura working carefully from above and below. Gradually, we were able to free all of this tissue, and achieve a generous decompression of the thecal sac. No durotomy was made. We could appreciate the nerve roots floating back and forth gently within the CSF inside the dura, and they appeared well decompressed. We medialized the thecal sac from both sides, but could not feel a particularly large mass ventrally from the disc bulge to warrant a discectomy, and I felt that this was not necessary to decompress the cauda equina. Hemostasis was now assured with several rounds of packing with Surgi-Tk and thrombin Gelfoam. No further bleeding was seen. The wound was thoroughly irrigated with bacitracin solution. The incision was closed in layers, using 0 Vicryl suture on the muscles and fascia, and interrupted inverted 4-0 Vicryls on the dermis. The skin was closed with Dermabond and covered with a Telfa/ Tegaderm dressing. The drapes were taken down, and the patient was cautiously rotated back into the supine position and extubated without incident. He was transported to the PACU in stable condition. All counts were correct at the end of the case, and no complications were evident. I visited the patient in the PACU, and he endorsed that his leg pain was already substantially better, and he was able to move his legs much more freely. His strength was unchanged. The patient is aware that one of the local neurosurgeons will assume his care tomorrow, as I will be returning to [place], and is comfortable with that plan.
[2018-11-07] MEDS ORDERED: Vancomycin Inj 1,000 MG in Sodium Chlor 0.9% Inj 250 ML IV.SIG ONE (23:00)
[2018-11-08] MEDS: oxyCODONE/Acetaminophen 10/325 Tablet PO PRN ×6 (00:34→22:00)
[2018-11-08] MEDS: Sod Chloride 0.9% Inj 1,000 ML IV.CONT SCH ×3 (06:48→17:51)
[2018-11-08] MEDS: Levothyroxine 88 MCG Tablet PO SCH (07:34)
[2018-11-08] MEDS ORDERED: Influenza (Quadrivalent) Vaccine 0.5 ML Syringe IM ONE (09:00)
--- NOTE | 2018-11-08 10:27 | P.PN ---
Subjective Interval history: Follow-up cauda equina syndrome November 07, 2018-patient seen and examined, he was seen by neurosurgery and plan for repair/laminectomy November 08, 2018-patient seen and examined, complains of muscle cramps to lower extremities. Requesting allergy medication. Physical Exam Vital signs: Vital Signs 11/07/18 13:02 11/07/18 13:15 11/07/18 13:16 Temperature 97.7 F Pulse Rate 84 90 87 Respiratory Rate 15 45 H 25 H Blood Pressure 129/74 143/78 H Pulse Oximetry 99 94 L 11/07/18 13:22 11/07/18 13:30 11/07/18 15:04 Temperature Pulse Rate 84 Respiratory Rate 12 31 H 16 Blood Pressure 149/79 H Pulse Oximetry 97 11/07/18 16:00 11/07/18 18:42 11/07/18 20:00 Temperature 98 F 97.6 F Pulse Rate 80 81 Respiratory Rate 18 16 18 Blood Pressure 137/64 125/61 Pulse Oximetry 96 96 11/08/18 00:00 11/08/18 02:55 11/08/18 04:00 Temperature 98.0 F 97.9 F Pulse Rate 70 69 Respiratory Rate 18 16 18 Blood Pressure 119/58 L 108/58 L Pulse Oximetry 98 97 11/08/18 05:09 11/08/18 06:48 11/08/18 07:56 Temperature 97.4 F L Pulse Rate 59 L Respiratory Rate 16 16 18 Blood Pressure 120/63 Pulse Oximetry 98 Intake & Output 11/07/18 11/08/18 11/08/18 18:59 06:59 18:59 Intake Total 2220 / 2220 240 / 240 Output Total 1510 / 1510 1200 / 1200 Balance 710 / 710 -1200 / -1200 240 / 240 Intake: IV 1000 / 1000 NS Inj 1,000 ML @ 100 mls/hr IV 1000 / 1000 .CONT .Q10H [facility] Rx#:[id number] Oral 720 / 720 240 / 240 Anesthesia Amount 500 / 500 Output: Urine 1400 / 1400 1200 / 1200 Estimated Blood Loss 10 / 10 Urine Amount (Catheter) 100 / 100 Indwelling Urethral Catheter 100 / 100 Narrative: GENERAL: NAD SKIN: Warm and dry. HEAD: Normocephalic. EYES: No scleral icterus. No injection or drainage. NECK: Supple, trachea midline. No JVD or lymphadenopathy. CARDIOVASCULAR: Regular rate and rhythm without murmurs, gallops, or rubs. RESPIRATORY: Breath sounds equal bilaterally. No accessory muscle use. GASTROINTESTINAL: Abdomen soft, non-tender, nondistended. MUSCULOSKELETAL: No cyanosis, or edema. BACK: Nontender without obvious deformity. No CVA tenderness. - Urinary Catheter Management Indwelling Urethral Catheter Cath placed during this visit: yes Reason for continuing: Acute urinary retention Insertion date: 11/07/18 Insertion time: 10:55 Results - Labs CBC & Chem 7: 11/07/18 06:10 11/07/18 06:10 - Imaging Impressions Lumbar Spine X-Ray 11/07/18 00:00 CONCLUSION: Probe at L4-5 - Procedures s/p L4/5 laminectomies for decompression of cauda equina Assessment and Plan - Plan 58-year-old man with Acute Cauda Equina Syndrome Appreciate input from neurosurgery s/p L4/5 laminectomies for decompression of cauda equina 11/07/18 Continue with IV Decadron Add muscle relaxant, continue pain management accordingly PT/OT to treat Chronic hypothyroidism. Continue home medication. DVT prophylaxis: Bilateral SCDs
[2018-11-08] MEDS: Baclofen 10 MG Tablet PO SCH ×3 (10:51→21:59)
--- NOTE | 2018-11-08 13:10 | P.PNNS ---
Subjective Interval history: 11/08/18 Patient reports to be doing well, the numbness in his feet and perineal region is improved. He reports of incisional pain, and some muscle cramps in his legs. <Radha Gray - Last Filed: 11/08/18 13:10> Physical Exam Vital signs: Vital Signs 11/07/18 13:15 11/07/18 13:16 11/07/18 13:22 Temperature Pulse Rate 90 87 Respiratory Rate 45 H 25 H 12 Blood Pressure 143/78 H Pulse Oximetry 94 L 11/07/18 13:30 11/07/18 15:04 11/07/18 16:00 Temperature 98 F Pulse Rate 84 80 Respiratory Rate 31 H 16 18 Blood Pressure 149/79 H 137/64 Pulse Oximetry 97 96 11/07/18 18:42 11/07/18 20:00 11/08/18 00:00 Temperature 97.6 F 98.0 F Pulse Rate 81 70 Respiratory Rate 16 18 18 Blood Pressure 125/61 119/58 L Pulse Oximetry 96 98 11/08/18 02:55 11/08/18 04:00 11/08/18 05:09 Temperature 97.9 F Pulse Rate 69 Respiratory Rate 16 18 16 Blood Pressure 108/58 L Pulse Oximetry 97 11/08/18 06:48 11/08/18 07:56 11/08/18 12:00 Temperature 97.4 F L 97.7 F Pulse Rate 59 L 75 Respiratory Rate 16 18 18 Blood Pressure 120/63 115/56 L Pulse Oximetry 98 96 Intake & Output 11/07/18 11/08/18 11/08/18 18:59 06:59 18:59 Intake Total 2220 / 2220 1240 / 1240 Output Total 1510 / 1510 1200 / 1200 1200 / 1200 Balance 710 / 710 -1200 / -1200 40 / 40 Intake: IV 1000 / 1000 1000 / 1000 NS Inj 1,000 ML @ 100 mls/hr IV 1000 / 1000 1000 / 1000 .CONT .Q10H [facility] Rx#:[id number] Oral 720 / 720 240 / 240 Anesthesia Amount 500 / 500 Output: Urine 1400 / 1400 1200 / 1200 1200 / 1200 Estimated Blood Loss 10 / 10 Urine Amount (Catheter) 100 / 100 Indwelling Urethral Catheter 100 / 100 Narrative: November 08, 2018 Patient is laying in bed in no acute distress. He is alert and conversant. He follows commands. His motor strength is 5/5 in lower extremities. He has good catheter in place. He reports perineal numbness improved. Surgical wound is clean, dry, intact. - Urinary Catheter Management Indwelling Urethral Catheter Cath placed during this visit: yes Reason for continuing: Acute urinary retention Insertion date: 11/07/18 Insertion time: 10:55 <Radha Gray - Last Filed: 11/08/18 13:10> Vital signs: Vital Signs 11/07/18 15:04 11/07/18 16:00 11/07/18 18:42 Temperature 98 F Pulse Rate 80 Respiratory Rate 16 18 16 Blood Pressure 137/64 Pulse Oximetry 96 11/07/18 20:00 11/08/18 00:00 11/08/18 02:55 Temperature 97.6 F 98.0 F Pulse Rate 81 70 Respiratory Rate 18 18 16 Blood Pressure 125/61 119/58 L Pulse Oximetry 96 98 11/08/18 04:00 11/08/18 05:09 11/08/18 06:48 Temperature 97.9 F Pulse Rate 69 Respiratory Rate 18 16 16 Blood Pressure 108/58 L Pulse Oximetry 97 11/08/18 07:56 11/08/18 12:00 Temperature 97.4 F L 97.7 F Pulse Rate 59 L 75 Respiratory Rate 18 18 Blood Pressure 120/63 115/56 L Pulse Oximetry 98 96 Intake & Output 11/07/18 11/08/18 11/08/18 18:59 06:59 18:59 Intake Total 2220 / 2220 1240 / 1240 Output Total 1510 / 1510 1200 / 1200 1200 / 1200 Balance 710 / 710 -1200 / -1200 40 / 40 Intake: IV 1000 / 1000 1000 / 1000 NS Inj 1,000 ML @ 100 mls/hr IV 1000 / 1000 1000 / 1000 .CONT .Q10H [facility] Rx#:[id number] Oral 720 / 720 240 / 240 Anesthesia Amount 500 / 500 Output: Urine 1400 / 1400 1200 / 1200 1200 / 1200 Estimated Blood Loss 10 / 10 Urine Amount (Catheter) 100 / 100 Indwelling Urethral Catheter 100 / 100 - Urinary Catheter Management Indwelling Urethral Catheter Cath placed during this visit: no <Shantanu Nails - Last Filed: 11/08/18 15:05> Assessment and Plan - Plan Mr. Almeida is a homeless gentleman who is a current user of methamphetamine and cocaine, presenting with 3 weeks of symptoms consistent with cauda equina syndrome. His MRI reveals focal severe lumbar stenosis at L4/5. I feel that surgical decompression of the nerve roots at that level is indicated. I had a lengthy discussion about this with the patient, as well as with the patient's sister by phone, and both of them are in agreement to proceed with surgery. I explained the risks, including bleeding, infection, CSF leak, persistent symptoms, nerve damage, paralysis, weakness, sensory deficit, sexual dysfunction , , etc. The patient is aware that his current symptoms may be slow or incomplete to improve following surgery. However, I believe that he is likely to worsen and continue to lose function without surgical decompression, and for this reason he wishes to proceed. Plan for OR today. He underwent L4-[address] Prajapati 11/07/18 November 08, 2018 clinically improving following surgical decompression continue physical therapy and inpatient rehabilitation continue on Baclofen 10 mg, dw patient to ask for medication for muscle spasms recommend discontinuing good catheter, and straight cath as needed <Radha Gray - Last Filed: 11/08/18 13:10> - Attending Attestation November 08, 2018 I personally interviewed and examined the patient. I reviewed the documentation , laboratory evaluation, and the imaging. I discussed case with the neurosurgery team and formulated the plan which is as described above. The patient appears to be stable postoperative day #1 status post bilateral L4-5 laminectomy for an acute cauda equina syndrome. He needs to be mobilized with physical therapy and ambulated. Neurosurgery will follow. <Shantanu Nails - Last Filed: 11/08/18 15:05>
[2018-11-08] MEDS: Morphine Inj 4 MG/ML Vial IV.PUSH PRN (20:09)
[2018-11-09] MEDS: Morphine Inj 4 MG/ML Vial IV.PUSH PRN ×4 (00:11→21:18)
[2018-11-09] MEDS: oxyCODONE/Acetaminophen 10/325 Tablet PO PRN ×6 (02:03→22:43)
[2018-11-09] MEDS: Sod Chloride 0.9% Inj 1,000 ML IV.CONT SCH ×2 (02:46→13:51)
[2018-11-09] MEDS: Levothyroxine 88 MCG Tablet PO SCH (05:55)
[2018-11-09] MEDS: Baclofen 10 MG Tablet PO SCH ×3 (05:56→21:18)
--- NOTE | 2018-11-09 12:06 | P.PN ---
Subjective Interval history: Follow-up cauda equina syndrome November 07, 2018-patient seen and examined, he was seen by neurosurgery and plan for repair/laminectomy November 08, 2018-patient seen and examined, complains of muscle cramps to lower extremities. Requesting allergy medication. November 09, 2018-patient seen and examined, reports improvement of muscle cramps. No significant back pain otherwise other than mild numbness to the surgical site. Afebrile. Physical Exam Vital signs: Vital Signs 11/08/18 16:00 11/08/18 20:00 11/09/18 00:00 Temperature 97.5 F L 98.2 F 98 F Pulse Rate 83 87 57 L Respiratory Rate 18 18 18 Blood Pressure 123/60 120/59 L 118/68 Pulse Oximetry 93 L 97 98 11/09/18 04:00 11/09/18 08:00 Temperature 98 F 97.6 F Pulse Rate 56 L 59 L Respiratory Rate 18 20 Blood Pressure 128/79 127/60 Pulse Oximetry 97 98 Intake & Output 11/08/18 11/09/18 11/09/18 18:59 06:59 18:59 Intake Total 1960 / 1960 Output Total 1700 / 1700 2800 / 2800 Balance 260 / 260 -2800 / -2800 Weight 69.9 kg Intake: IV 1000 / 1000 NS Inj 1,000 ML @ 100 mls/hr IV 1000 / 1000 .CONT .Q10H [facility] Rx#:[id number] Oral 960 / 960 Output: Urine 1700 / 1700 2800 / 2800 Narrative: GENERAL: NAD SKIN: Warm and dry. HEAD: Atraumatic. Normocephalic. EYES: Pupils equal and round. No scleral icterus. No injection or drainage. ENT: No nasal bleeding or discharge. Mucous membranes pink and moist. NECK: Trachea midline. No JVD. CARDIOVASCULAR: Regular rate and rhythm. RESPIRATORY: No accessory muscle use. Clear to auscultation. Breath sounds equal bilaterally. GASTROINTESTINAL: Abdomen soft, non-tender, nondistended. Hepatic and splenic margins not palpable. MUSCULOSKELETAL: Extremities without clubbing, cyanosis, or edema. No obvious deformities. NEUROLOGICAL: Awake and alert. No obvious cranial nerve deficits. Motor grossly within normal limits. Five out of 5 muscle strength in the arms and legs. Normal speech. PSYCHIATRIC: Appropriate mood and affect; insight and judgment normal. - Urinary Catheter Management Indwelling Urethral Catheter Cath placed during this visit: yes Reason for continuing: Acute urinary retention Insertion date: 11/07/18 Insertion time: 10:55 Results - Labs CBC & Chem 7: 11/07/18 06:10 11/07/18 06:10 - Procedures s/p L4/5 laminectomies for decompression of cauda equina Assessment and Plan - Plan 58-year-old man with Acute Cauda Equina Syndrome Appreciate input from neurosurgery s/p L4/5 laminectomies for decompression of cauda equina 11/07/18 Continue with IV Decadron, wean off Decadron Continue muscle relaxant, pain management accordingly discontinue [place] PT/OT to treat Chronic hypothyroidism. Continue home medication. DVT prophylaxis: Bilateral SCDs
[2018-11-09] MEDS: Heparin - SQ 10,000 UNITS/ML Vial SQ SCH ×2 (13:41→21:17)
[2018-11-09] MEDS: Gabapentin 300 MG Capsule PO SCH ×2 (13:42→18:18)
--- NOTE | 2018-11-09 15:11 | P.PNNS ---
Subjective Interval history: 11/09/18 reports of sensation of tightness with moving his feet worse when SCDs are off. continues with perineal numbness. he did mobilize out of bed yesterday but was unsteady. <Radha Gray - Last Filed: 11/09/18 15:14> Physical Exam Vital signs: Vital Signs 11/08/18 16:00 11/08/18 20:00 11/09/18 00:00 Temperature 97.5 F L 98.2 F 98 F Pulse Rate 83 87 57 L Respiratory Rate 18 18 18 Blood Pressure 123/60 120/59 L 118/68 Pulse Oximetry 93 L 97 98 11/09/18 04:00 11/09/18 08:00 11/09/18 12:00 Temperature 98 F 97.6 F 97.8 F Pulse Rate 56 L 59 L 70 Respiratory Rate 18 20 20 Blood Pressure 128/79 127/60 146/65 H Pulse Oximetry 97 98 96 Intake & Output 11/08/18 11/09/18 11/09/18 18:59 06:59 18:59 Intake Total 1960 / 1960 500 / 500 Output Total 1700 / 1700 2800 / 2800 2550 / 2550 Balance 260 / 260 -2800 / -2800 -2050 / -2050 Weight 69.9 kg Intake: IV 1000 / 1000 500 / 500 NS Inj 1,000 ML @ 100 mls/hr IV 1000 / 1000 500 / 500 .CONT .Q10H [facility] Rx#:[id number] Oral 960 / 960 Output: Urine 1700 / 1700 2800 / 2800 350 / 350 Urine Amount (Catheter) 2200 / 2200 Indwelling Urethral Catheter 2200 / 2200 Narrative: Patient is laying in bed in no acute distress. He is alert and conversant. He follows commands. His motor strength is 5/5 in lower extremities, slight weakness to dorsiflexion. Decreased sensory following L5 distribution. He has good catheter in place. Surgical wound is clean, dry, intact. - Urinary Catheter Management Indwelling Urethral Catheter Cath placed during this visit: yes Reason for continuing: Acute urinary retention Insertion date: 11/07/18 Insertion time: 10:55 <Radha Gray - Last Filed: 11/09/18 15:14> Vital signs: Vital Signs 11/08/18 20:00 11/09/18 00:00 11/09/18 04:00 Temperature 98.2 F 98 F 98 F Pulse Rate 87 57 L 56 L Respiratory Rate 18 18 18 Blood Pressure 120/59 L 118/68 128/79 Pulse Oximetry 97 98 97 11/09/18 08:00 11/09/18 12:00 Temperature 97.6 F 97.8 F Pulse Rate 59 L 70 Respiratory Rate 20 20 Blood Pressure 127/60 146/65 H Pulse Oximetry 98 96 Intake & Output 11/08/18 11/09/18 11/09/18 18:59 06:59 18:59 Intake Total 1960 / 1960 500 / 500 Output Total 1700 / 1700 2800 / 2800 2550 / 2550 Balance 260 / 260 -2800 / -2800 -0 / -0 Weight 69.9 kg Intake: IV 1000 / 1000 500 / 500 NS Inj 1,000 ML @ 100 mls/hr IV 1000 / 1000 500 / 500 .CONT .Q10H [facility] Rx#:[id number] Oral 960 / 960 Output: Urine 1700 / 1700 2800 / 2800 350 / 350 Urine Amount (Catheter) 2200 / 2200 Indwelling Urethral Catheter 2200 / 2200 - Urinary Catheter Management Indwelling Urethral Catheter Cath placed during this visit: no <Shantanu Nails - Last Filed: 11/09/18 16:40> Assessment and Plan - Plan Mr. Almeida is a homeless gentleman who is a current user of methamphetamine and cocaine, presenting with 3 weeks of symptoms consistent with cauda equina syndrome. His MRI reveals focal severe lumbar stenosis at L4/5. I feel that surgical decompression of the nerve roots at that level is indicated. I had a lengthy discussion about this with the patient, as well as with the patient's sister by phone, and both of them are in agreement to proceed with surgery. I explained the risks, including bleeding, infection, CSF leak, persistent symptoms, nerve damage, paralysis, weakness, sensory deficit, sexual dysfunction , , etc. The patient is aware that his current symptoms may be slow or incomplete to improve following surgery. However, I believe that he is likely to worsen and continue to lose function without surgical decompression, and for this reason he wishes to proceed. Plan for OR today. He underwent L4-[address] Prajapati 11/07/18 November 08, 2018 clinically improving following surgical decompression continue physical therapy and inpatient rehabilitation continue on Baclofen 10 mg, dw patient to ask for medication for muscle spasms recommend discontinuing good catheter, and straight cath as needed November 09, 2018 patient neurologically stable consistent with his cauda equina syndrome continue with physical therapy and rehabilitation, ?pt unable to qualify for [place] [facility] add Neurontin 300 mg TID to see if this helps recommend removing good catheter to see if he is able to void, if not straight cath prn and urology consult start SQ Heparin 5000 units q 8 hours for dvt prophylaxis, cont SCDs and TEDs discuss with nursing <Radha Gray - Last Filed: 11/09/18 15:14> - Attending Attestation November 09, 2018 I personally interviewed and examined the patient. I reviewed the documentation , laboratory evaluation, and the imaging. I discussed the case with the neurosurgery team and we formulated the plan. This is as described above. The patient appears to be stable postoperatively, postoperative day #2. He has improved neurologically but seems to still have a residual cauda equina syndrome. He will require extensive rehabilitation. Neurosurgery will follow. <Shantanu Nails - Last Filed: 11/09/18 16:40>
[2018-11-10] MEDS: Morphine Inj 4 MG/ML Vial IV.PUSH PRN ×3 (01:54→11:00)
[2018-11-10] MEDS: oxyCODONE/Acetaminophen 10/325 Tablet PO PRN ×5 (02:41→21:25)
[2018-11-10] MEDS: Baclofen 10 MG Tablet PO SCH ×3 (05:44→21:24)
[2018-11-10] MEDS: Heparin - SQ 10,000 UNITS/ML Vial SQ SCH ×3 (05:44→21:23)
[2018-11-10] MEDS: Levothyroxine 88 MCG Tablet PO SCH (05:45)
[2018-11-10] MEDS: Gabapentin 300 MG Capsule PO SCH ×3 (08:21→17:00)
--- NOTE | 2018-11-10 11:22 | P.PN ---
Subjective Interval history: Follow-up cauda equina syndrome November 07, 2018-patient seen and examined, he was seen by neurosurgery and plan for repair/laminectomy November 08, 2018-patient seen and examined, complains of muscle cramps to lower extremities. Requesting allergy medication. November 09, 2018-patient seen and examined, reports improvement of muscle cramps. No significant back pain otherwise other than mild numbness to the surgical site. Afebrile. November 10, 2018-patient seen and examined, complains of inadequate pain control to his back. Also report stiffness to his bilateral heels more so in the right Physical Exam Vital signs: Vital Signs 11/09/18 12:00 11/09/18 16:00 11/09/18 20:59 Temperature 97.8 F 97.7 F 98.3 F Pulse Rate 70 71 66 Respiratory Rate 20 20 20 Blood Pressure 146/65 H 137/67 113/64 Pulse Oximetry 96 96 97 11/10/18 01:11 11/10/18 05:47 11/10/18 08:00 Temperature 98.6 F 97.6 F 97.6 F Pulse Rate 65 63 56 L Respiratory Rate 20 20 20 Blood Pressure 108/55 L 118/63 121/58 L Pulse Oximetry 96 96 97 Intake & Output 11/09/18 11/10/18 11/10/18 18:59 06:59 18:59 Intake Total 500 / 500 Output Total 3875 / 3875 2950 / 2950 Balance -3375 / -3375 -2950 / -2950 Intake: IV 500 / 500 NS Inj 1,000 ML @ 100 mls/hr IV 500 / 500 .CONT .Q10H [facility] Rx#:[id number] Output: Urine 1675 / 1675 2950 / 2950 Urine Amount (Catheter) 2200 / 2200 Indwelling Urethral Catheter 0 / 0 Other: # Voids 1 Date of Last Bowel Movement 11/10/18 11/04/18 # Bowel Movements 1 Narrative: GENERAL: SKIN: Warm and dry. HEAD: Atraumatic. Normocephalic. EYES: Pupils equal and round. No scleral icterus. No injection or drainage. ENT: No nasal bleeding or discharge. Mucous membranes pink and moist. NECK: Trachea midline. No JVD. CARDIOVASCULAR: Regular rate and rhythm. RESPIRATORY: No accessory muscle use. Clear to auscultation. Breath sounds equal bilaterally. GASTROINTESTINAL: Abdomen soft, non-tender, nondistended. Hepatic and splenic margins not palpable. MUSCULOSKELETAL: Extremities without clubbing, cyanosis, or edema. No obvious deformities. NEUROLOGICAL: Awake and alert. No obvious cranial nerve deficits. Motor grossly within normal limits. Five out of 5 muscle strength in the arms and legs. Normal speech. Weakness seen dorsiflexion R>L PSYCHIATRIC: Appropriate mood and affect; insight and judgment normal. - Urinary Catheter Management Indwelling Urethral Catheter Cath placed during this visit: yes Reason for continuing: Acute urinary retention Insertion date: 11/07/18 Insertion time: 10:55 Results - Labs CBC & Chem 7: 11/07/18 06:10 11/07/18 06:10 - Procedures s/p L4/5 laminectomies for decompression of cauda equina Assessment and Plan - Plan 58-year-old man with Acute Cauda Equina Syndrome Appreciate input from neurosurgery s/p L4/5 laminectomies for decompression of cauda equina 11/07/18 d/c Decadron Continue muscle relaxant, pain management accordingly PT/OT to treat Chronic hypothyroidism. Continue home medication. DVT prophylaxis: Bilateral SCDs
--- NOTE | 2018-11-10 14:29 | P.PNNS ---
Subjective Interval history: continues to reports of tightness and spasms in right calf with numbness in his lower legs and feet. good catheter removed and he is voiding. <Radha Gray - Last Filed: 11/10/18 14:25> Physical Exam Vital signs: Vital Signs 11/09/18 16:00 11/09/18 20:59 11/10/18 01:11 Temperature 97.7 F 98.3 F 98.6 F Pulse Rate 71 66 65 Respiratory Rate 20 20 20 Blood Pressure 137/67 113/64 108/55 L Pulse Oximetry 96 97 96 11/10/18 05:47 11/10/18 08:00 11/10/18 12:30 Temperature 97.6 F 97.6 F 97.8 F Pulse Rate 63 56 L 75 Respiratory Rate 20 20 20 Blood Pressure 118/63 121/58 L 124/60 Pulse Oximetry 96 97 96 Intake & Output 11/09/18 11/10/18 11/10/18 18:59 06:59 18:59 Intake Total 500 / 500 Output Total 3875 / 3875 2950 / 2950 Balance -3375 / -3375 -2950 / -2950 Intake: IV 500 / 500 NS Inj 1,000 ML @ 100 mls/hr IV 500 / 500 .CONT .Q10H [facility] Rx#:[id number] Output: Urine 1675 / 1675 2950 / 2950 Urine Amount (Catheter) 2200 / 2200 Indwelling Urethral Catheter 0 / 2200 Other: # Voids 1 Date of Last Bowel Movement 11/10/18 11/10/18 # Bowel Movements 1 1 Narrative: Patient is laying in bed in no acute distress. He is alert and conversant. He follows commands. His motor strength is 5/5 in lower extremities, slight weakness 4+ to 5- to dorsiflexion. Decreased sensory following L5 distribution. Good catheter has been removed. Surgical wound is clean, dry, intact. - Urinary Catheter Management Indwelling Urethral Catheter Cath placed during this visit: yes Reason for continuing: Acute urinary retention Insertion date: 11/07/18 Insertion time: 10:55 <Radha Gray - Last Filed: 11/10/18 14:25> Vital signs: Vital Signs 11/09/18 16:00 11/09/18 20:59 11/10/18 01:11 Temperature 97.7 F 98.3 F 98.6 F Pulse Rate 71 66 65 Respiratory Rate 20 20 20 Blood Pressure 137/67 113/64 108/55 L Pulse Oximetry 96 97 96 11/10/18 05:47 11/10/18 08:00 11/10/18 12:30 Temperature 97.6 F 97.6 F 97.8 F Pulse Rate 63 56 L 75 Respiratory Rate 20 20 20 Blood Pressure 118/63 121/58 L 124/60 Pulse Oximetry 96 97 96 Intake & Output 11/09/18 11/10/18 11/10/18 18:59 06:59 18:59 Intake Total 500 / 500 Output Total 3875 / 3875 2950 / 2950 Balance -3375 / -3375 -2950 / -2950 Intake: IV 500 / 500 NS Inj 1,000 ML @ 100 mls/hr IV 500 / 500 .CONT .Q10H [facility] Rx#:[id number] Output: Urine 1675 / 1675 2950 / 2950 Urine Amount (Catheter) 2200 / 2200 Indwelling Urethral Catheter 0 / 2200 Other: # Voids 1 Date of Last Bowel Movement 11/10/18 11/10/18 # Bowel Movements 1 1 - Urinary Catheter Management Indwelling Urethral Catheter Cath placed during this visit: no <Shantanu Nails - Last Filed: 11/10/18 14:40> Assessment and Plan - Plan Mr. Almeida is a homeless gentleman who is a current user of methamphetamine and cocaine, presenting with 3 weeks of symptoms consistent with cauda equina syndrome. His MRI reveals focal severe lumbar stenosis at L4/5. I feel that surgical decompression of the nerve roots at that level is indicated. I had a lengthy discussion about this with the patient, as well as with the patient's sister by phone, and both of them are in agreement to proceed with surgery. I explained the risks, including bleeding, infection, CSF leak, persistent symptoms, nerve damage, paralysis, weakness, sensory deficit, sexual dysfunction , , etc. The patient is aware that his current symptoms may be slow or incomplete to improve following surgery. However, I believe that he is likely to worsen and continue to lose function without surgical decompression, and for this reason he wishes to proceed. Plan for OR today. He underwent L4-[address] Prajapati 11/07/18 November 08, 2018 clinically improving following surgical decompression continue physical therapy and inpatient rehabilitation continue on Baclofen 10 mg, dw patient to ask for medication for muscle spasms recommend discontinuing good catheter, and straight cath as needed November 09, 2018 patient neurologically stable consistent with his cauda equina syndrome continue with physical therapy and rehabilitation, ?pt unable to qualify for [facility] add Neurontin 300 mg TID to see if this helps recommend removing good catheter to see if he is able to void, if not straight cath prn and urology consult start SQ Heparin 5000 units q 8 hours for dvt prophylaxis, cont SCDs and TEDs discuss with nursing November 10, 2018 POD #3 continue with physical therapy and inpatient rehabilitation efforts cont Neurontin 300 tid, can taper up as needed if neuro symptoms not being controlled cont bowel regimen for constipation <Radha Gray - Last Filed: 11/10/18 14:25> - Attending Attestation November 10, 2018 I personally interviewed and examined the patient. I reviewed the documentation , laboratory evaluation, and the imaging. I discussed the case with the neurosurgery team and we formulated a plan which is as described above. The patient is stable postoperatively. Neurosurgery will follow. <Shantanu Nails - Last Filed: 11/10/18 14:40>
[2018-11-10] MEDS: Morphine Sulfate Inj 2 MG/ML Vial IV.PUSH PRN (18:09)
[2018-11-11] MEDS: oxyCODONE/Acetaminophen 10/325 Tablet PO PRN ×5 (02:42→20:35)
[2018-11-11] MEDS: Morphine Sulfate Inj 2 MG/ML Vial IV.PUSH PRN ×3 (03:49→18:07)
[2018-11-11] MEDS: Levothyroxine 88 MCG Tablet PO SCH (05:44)
[2018-11-11] MEDS: Baclofen 10 MG Tablet PO SCH (05:44)
[2018-11-11] MEDS: Heparin - SQ 10,000 UNITS/ML Vial SQ SCH ×4 (05:45→23:40)
[2018-11-11] MEDS: Gabapentin 300 MG Capsule PO SCH ×4 (08:49→20:35)
--- NOTE | 2018-11-11 10:37 | P.PN ---
Subjective Interval history: Follow-up cauda equina syndrome November 07, 2018-patient seen and examined, he was seen by neurosurgery and plan for repair/laminectomy November 08, 2018-patient seen and examined, complains of muscle cramps to lower extremities. Requesting allergy medication. November 09, 2018-patient seen and examined, reports improvement of muscle cramps. No significant back pain otherwise other than mild numbness to the surgical site. Afebrile. November 10, 2018-patient seen and examined, complains of inadequate pain control to his back. Also report stiffness to his bilateral heels more so in the right November 11, 2018-patient seen and examined,he has significant muscle cramps/ stiffness LLE and unable to flex LLE. Unable to dorsiflex R>L Physical Exam Vital signs: Vital Signs 11/10/18 12:30 11/10/18 16:00 11/10/18 20:15 Temperature 97.8 F 97.3 F L 97.7 F Pulse Rate 75 73 74 Respiratory Rate 20 20 20 Blood Pressure 124/60 126/61 114/56 L Pulse Oximetry 96 98 99 11/11/18 00:26 11/11/18 04:28 11/11/18 08:05 Temperature 97.6 F 97.8 F 97.8 F Pulse Rate 60 57 L 59 L Respiratory Rate 20 20 20 Blood Pressure 125/75 112/56 L 118/60 Pulse Oximetry 98 98 98 Intake & Output 11/10/18 11/11/18 11/11/18 18:59 06:59 18:59 Output Total 1300 / 1300 1250 / 1250 Balance -1300 / -1300 -1250 / -1250 Output: Urine 1300 / 1300 1250 / 1250 Other: Date of Last Bowel Movement 11/10/18 11/04/18 # Bowel Movements 1 Narrative: GENERAL: NAD SKIN: Warm and dry. HEAD: Atraumatic. Normocephalic. EYES: Pupils equal and round. No scleral icterus. No injection or drainage. ENT: No nasal bleeding or discharge. Mucous membranes pink and moist. NECK: Trachea midline. No JVD. CARDIOVASCULAR: Regular rate and rhythm. RESPIRATORY: No accessory muscle use. Clear to auscultation. Breath sounds equal bilaterally. GASTROINTESTINAL: Abdomen soft, non-tender, nondistended. Hepatic and splenic margins not palpable. MUSCULOSKELETAL: Extremities without clubbing, cyanosis, or edema. No obvious deformities. NEUROLOGICAL: Awake and alert. No obvious cranial nerve deficits. Motor grossly within normal limits. significant muscle stiffness LLE; no dorsiflexion to R>L PSYCHIATRIC: Appropriate mood and affect; insight and judgment normal. - Urinary Catheter Management Indwelling Urethral Catheter Cath placed during this visit: yes Reason for continuing: Acute urinary retention Insertion date: 11/07/18 Insertion time: 10:55 Results - Labs CBC & Chem 7: 11/07/18 06:10 11/07/18 06:10 - Procedures s/p L4/5 laminectomies for decompression of cauda equina Assessment and Plan - Plan 58-year-old man with Acute Cauda Equina Syndrome Patient with significant muscle stiffness LLE, no dorsiflexion R>L Appreciate input from neurosurgery s/p L4/5 laminectomies for decompression of cauda equina 11/07/18 d/c Decadron Continue muscle relaxant, pain management accordingly PT/OT to treat Chronic hypothyroidism. Continue home medication. DVT prophylaxis: Bilateral SCDs
[2018-11-11 12:27] LABS: Calcium 8.3 mg/dL (8.5-10.1)
[2018-11-11 12:31] LABS: Phosphorus 1.8 mg/dL (2.5-4.9)
--- NOTE | 2018-11-11 14:21 | P.PNNS ---
Subjective Interval history: continues to reports of tightness in his calves and ankles, otherwise urinating well <Radha Gray - Last Filed: 11/12/18 13:06> Physical Exam Vital signs: Vital Signs 11/10/18 16:00 11/10/18 20:15 11/11/18 00:26 Temperature 97.3 F L 97.7 F 97.6 F Pulse Rate 73 74 60 Respiratory Rate 20 20 20 Blood Pressure 126/61 114/56 L 125/75 Pulse Oximetry 98 99 98 11/11/18 04:28 11/11/18 08:05 11/11/18 12:00 Temperature 97.8 F 97.8 F 98.1 F Pulse Rate 57 L 59 L 71 Respiratory Rate 20 20 20 Blood Pressure 112/56 L 118/60 116/57 L Pulse Oximetry 98 98 98 Intake & Output 11/10/18 11/11/18 11/11/18 18:59 06:59 18:59 Output Total 1300 / 1300 1250 / 1250 1050 / 1050 Balance -1300 / -1300 -1250 / -1250 -1050 / -1050 Output: Urine 1300 / 1300 1250 / 1250 1050 / 1050 Other: Date of Last Bowel Movement 11/10/18 11/04/18 # Bowel Movements 1 - Urinary Catheter Management Indwelling Urethral Catheter Cath placed during this visit: no <Shantanu Nails - Last Filed: 11/11/18 14:52> Vital signs: Vital Signs 11/10/18 16:00 11/10/18 20:15 11/11/18 00:26 Temperature 97.3 F L 97.7 F 97.6 F Pulse Rate 73 74 60 Respiratory Rate 20 20 20 Blood Pressure 126/61 114/56 L 125/75 Pulse Oximetry 98 99 98 11/11/18 04:28 11/11/18 08:05 11/11/18 12:00 Temperature 97.8 F 97.8 F 98.1 F Pulse Rate 57 L 59 L 71 Respiratory Rate 20 20 20 Blood Pressure 112/56 L 118/60 116/57 L Pulse Oximetry 98 98 98 Intake & Output 11/10/18 11/11/18 11/11/18 18:59 06:59 18:59 Output Total 1300 / 1300 1250 / 1250 1050 / 1050 Balance -1300 / -1300 -1250 / -1250 -1050 / -1050 Output: Urine 1300 / 1300 1250 / 1250 1050 / 1050 Other: Date of Last Bowel Movement 11/10/18 11/04/18 # Bowel Movements 1 Narrative: November 11, 2018 Patient is laying in bed in no acute distress but appears comfortable with complaints of tightness in his calves and ankles. He is alert and conversant. He follows commands. His motor strength is 5 to 5-/5 in lower extremities, weakness 4+ to 5- to dorsiflexion. Increased tonicity in his lower legs and feet. Decreased sensory following L5 distribution. Surgical wound is clean, dry, intact. - Urinary Catheter Management Indwelling Urethral Catheter Cath placed during this visit: yes Reason for continuing: Acute urinary retention Insertion date: 11/07/18 Insertion time: 10:55 <Radha Gray - Last Filed: 11/12/18 13:06> Assessment and Plan - Attending Attestation November 11, 2018 I personally interviewed and examined the patient. I reviewed the documentation , laboratory evaluation, and the imaging. I discussed the case with the neurosurgery team we formulated a plan which is as described above. The patient continues to complain of incisional pain as well as pain rating down both lower extremities left greater than right with weakness and numbness of both lower extremities with persistent muscle spasms and cramping of both lower extremities. We have decided to discontinue the baclofen since this is affording him no relief. We have increased the gabapentin 300 mg orally 4 times daily. We have ordered Zanaflex 3 times daily. I have also ordered a post void residual urine bladder scan. Neurosurgery will follow. This patient has a residual cauda equina syndrome and will require an extensive course of rehabilitation. <Shantanu Nails - Last Filed: 11/11/18 14:52> - Plan Mr. Almeida is a homeless gentleman who is a current user of methamphetamine and cocaine, presenting with 3 weeks of symptoms consistent with cauda equina syndrome. His MRI reveals focal severe lumbar stenosis at L4/5. I feel that surgical decompression of the nerve roots at that level is indicated. I had a lengthy discussion about this with the patient, as well as with the patient's sister by phone, and both of them are in agreement to proceed with surgery. I explained the risks, including bleeding, infection, CSF leak, persistent symptoms, nerve damage, paralysis, weakness, sensory deficit, sexual dysfunction , , etc. The patient is aware that his current symptoms may be slow or incomplete to improve following surgery. However, I believe that he is likely to worsen and continue to lose function without surgical decompression, and for this reason he wishes to proceed. Plan for OR today. He underwent L4-[address] Prajapati 11/07/18 November 08, 2018 clinically improving following surgical decompression continue physical therapy and inpatient rehabilitation continue on Baclofen 10 mg, dw patient to ask for medication for muscle spasms recommend discontinuing good catheter, and straight cath as needed November 09, 2018 patient neurologically stable consistent with his cauda equina syndrome continue with physical therapy and rehabilitation, ?pt unable to qualify for [place] [facility] add Neurontin 300 mg TID to see if this helps recommend removing good catheter to see if he is able to void, if not straight cath prn and urology consult start SQ Heparin 5000 units q 8 hours for dvt prophylaxis, cont SCDs and TEDs discuss with nursing November 10, 2018 POD #3 continue with physical therapy and inpatient rehabilitation efforts cont Neurontin 300 tid, can taper up as needed if neuro symptoms not being controlled cont bowel regimen for constipation November 11, 2018 POD #4 patient with probably increased spasms in his legs and feet despite being on Baclofen 10 mg tid. Will discontinue the baclofen and start on Zanaflex 4 mg every 8 hours around the clock. Will also increase Neurontin to 300 mg QID. Obtain Ca, Mag, and Phos levels. Dw nursing obtain post void bladder scanning - if needed straight cath. Will follow. <Radha Gray - Last Filed: 11/12/18 13:06>
[2018-11-12] MEDS: oxyCODONE/Acetaminophen 10/325 Tablet PO PRN ×5 (00:36→21:36)
[2018-11-12] MEDS: Morphine Sulfate Inj 2 MG/ML Vial IV.PUSH PRN ×4 (01:28→22:52)
[2018-11-12] MEDS: Levothyroxine 88 MCG Tablet PO SCH (06:22)
[2018-11-12] MEDS: Heparin - SQ 10,000 UNITS/ML Vial SQ SCH ×3 (06:23→22:47)
[2018-11-12] MEDS: Gabapentin 300 MG Capsule PO SCH ×4 (08:33→21:36)
--- NOTE | 2018-11-12 13:13 | P.PNNS ---
Subjective Interval history: reports no improvement from yesterday, continues with tightness in his feet and ankles with numbness. also has at times pain radiating down his left leg posterolaterally to the ankle and foot. <Radha Gray - Last Filed: 11/12/18 13:06> Physical Exam Vital signs: Vital Signs 11/11/18 17:01 11/11/18 20:00 11/11/18 22:40 Temperature 97.8 F 97.5 F L Pulse Rate 74 77 Respiratory Rate 18 16 Blood Pressure 118/58 L 118/56 L Pulse Oximetry 97 96 11/12/18 00:00 11/12/18 02:29 11/12/18 02:30 Temperature 97.8 F Pulse Rate 78 Respiratory Rate 18 16 16 Blood Pressure 120/58 L Pulse Oximetry 97 11/12/18 03:00 11/12/18 04:00 11/12/18 07:53 Temperature 98.7 F 97.6 F Pulse Rate 77 73 Respiratory Rate 16 18 20 Blood Pressure 119/55 L 113/56 L Pulse Oximetry 97 99 Intake & Output 11/11/18 11/12/18 11/12/18 18:59 06:59 18:59 Output Total 1050 / 1050 1999 Balance -1050 / -1050 -1999 Weight 69.9 kg Output: Urine 1050 / 1050 1999 Other: Date of Last Bowel Movement 11/04/18 # Bowel Movements 1 Narrative: November 12, 2018 Patient is laying in bed in no acute distress but appears comfortable with complaints of tightness in his calves and ankles. He is alert and conversant. He follows commands. His motor strength is 5 to 5-/5 in lower extremities, weakness 4+ to 5- to dorsiflexion. Moves upper extremities with good strength. Mild hypertonicity in his lower legs and feet. Surgical wound is clean, dry, intact. - Urinary Catheter Management Indwelling Urethral Catheter Cath placed during this visit: yes Reason for continuing: Acute urinary retention Insertion date: 11/07/18 Insertion time: 10:55 <Radha Gray - Last Filed: 11/12/18 13:06> Vital signs: Vital Signs 11/11/18 22:40 11/12/18 00:00 11/12/18 02:29 Temperature 97.8 F Pulse Rate 78 Respiratory Rate 16 18 16 Blood Pressure 120/58 L Pulse Oximetry 97 11/12/18 02:30 11/12/18 03:00 11/12/18 04:00 Temperature 98.7 F Pulse Rate 77 Respiratory Rate 16 16 18 Blood Pressure 119/55 L Pulse Oximetry 97 11/12/18 07:53 11/12/18 12:09 11/12/18 16:10 Temperature 97.6 F 98.2 F 100.3 F H Pulse Rate 73 83 91 H Respiratory Rate 20 20 20 Blood Pressure 113/56 L 106/55 L 132/62 Pulse Oximetry 99 98 95 Intake & Output 11/12/18 11/12/18 11/13/18 06:59 18:59 06:59 Output Total 1999 Balance -1999 Weight 69.9 kg Output: Urine 1999 Other: # Bowel Movements 1 - Urinary Catheter Management Indwelling Urethral Catheter Cath placed during this visit: no <Satinder Garcia - Last Filed: 11/12/18 20:41> Assessment and Plan - Plan Mr. Almeida is a homeless gentleman who is a current user of methamphetamine and cocaine, presenting with 3 weeks of symptoms consistent with cauda equina syndrome. His MRI reveals focal severe lumbar stenosis at L4/5. I feel that surgical decompression of the nerve roots at that level is indicated. I had a lengthy discussion about this with the patient, as well as with the patient's sister by phone, and both of them are in agreement to proceed with surgery. I explained the risks, including bleeding, infection, CSF leak, persistent symptoms, nerve damage, paralysis, weakness, sensory deficit, sexual dysfunction , , etc. The patient is aware that his current symptoms may be slow or incomplete to improve following surgery. However, I believe that he is likely to worsen and continue to lose function without surgical decompression, and for this reason he wishes to proceed. Plan for OR today. He underwent L4-[address] Prajapati 11/07/18 November 08, 2018 clinically improving following surgical decompression continue physical therapy and inpatient rehabilitation continue on Baclofen 10 mg, dw patient to ask for medication for muscle spasms recommend discontinuing good catheter, and straight cath as needed November 09, 2018 patient neurologically stable consistent with his cauda equina syndrome continue with physical therapy and rehabilitation, ?pt unable to qualify for [place] [facility] add Neurontin 300 mg TID to see if this helps recommend removing good catheter to see if he is able to void, if not straight cath prn and urology consult start SQ Heparin 5000 units q 8 hours for dvt prophylaxis, cont SCDs and TEDs discuss with nursing November 10, 2018 POD #3 continue with physical therapy and inpatient rehabilitation efforts cont Neurontin 300 tid, can taper up as needed if neuro symptoms not being controlled cont bowel regimen for constipation November 11, 2018 POD #4 patient with probably increased spasms in his legs and feet despite being on Baclofen 10 mg tid. Will discontinue the baclofen and start on Zanaflex 4 mg every 8 hours around the clock. Will also increase Neurontin to 300 mg QID. Obtain Ca, Mag, and Phos levels. Dw nursing obtain post void bladder scanning - if needed straight cath. Will follow. November 12, 2018 patient with complaints of residual cauda equina symptoms. Will increase Zanaflex to every 6 hours. On Neurontin 300 mg qid, this can be tapered up as well if needed. Labs showed low levels of calcium and phos - dw medicine who will replace. discussed to increase mobilization which will help his symptoms. will follow. <Radha Gray - Last Filed: 11/12/18 13:06> - Attending Attestation I have personally seen and examined the patient, reviewed pertinent labs and imaging studies with Ms Gray (Neurosurgery [employer]). I agree with her assessment as well as plan of care. <Satinder Garcia - Last Filed: 11/12/18 20:41>
--- NOTE | 2018-11-12 13:16 | P.PN ---
Subjective Interval history: Follow-up cauda equina syndrome November 07, 2018-patient seen and examined, he was seen by neurosurgery and plan for repair/laminectomy November 08, 2018-patient seen and examined, complains of muscle cramps to lower extremities. Requesting allergy medication. November 09, 2018-patient seen and examined, reports improvement of muscle cramps. No significant back pain otherwise other than mild numbness to the surgical site. Afebrile. November 10, 2018-patient seen and examined, complains of inadequate pain control to his back. Also report stiffness to his bilateral heels more so in the right November 11, 2018-patient seen and examined,he has significant muscle cramps/ stiffness LLE and unable to flex LLE. Unable to dorsiflex R>L November 12, 2018-patient seen and examined, patient states, he did not feel he had a bowel movement. Still complains of perineal numbness. Also complains of left lower extremity stiffness Physical Exam Vital signs: Vital Signs 11/11/18 17:01 11/11/18 20:00 11/11/18 22:40 Temperature 97.8 F 97.5 F L Pulse Rate 74 77 Respiratory Rate 18 16 Blood Pressure 118/58 L 118/56 L Pulse Oximetry 97 96 11/12/18 00:00 11/12/18 02:29 11/12/18 02:30 Temperature 97.8 F Pulse Rate 78 Respiratory Rate 18 16 16 Blood Pressure 120/58 L Pulse Oximetry 97 11/12/18 03:00 11/12/18 04:00 11/12/18 07:53 Temperature 98.7 F 97.6 F Pulse Rate 77 73 Respiratory Rate 16 18 20 Blood Pressure 119/55 L 113/56 L Pulse Oximetry 97 99 Intake & Output 11/11/18 11/12/18 11/12/18 18:59 06:59 18:59 Output Total 1050 / 1050 1999 Balance -1050 / -1050 -1999 Weight 69.9 kg Output: Urine 1050 / 1050 1999 Other: Date of Last Bowel Movement 11/04/18 # Bowel Movements 1 Narrative: GENERAL: NAD SKIN: Warm and dry. HEAD: Atraumatic. Normocephalic. EYES: Pupils equal and round. No scleral icterus. No injection or drainage. ENT: No nasal bleeding or discharge. Mucous membranes pink and moist. NECK: Trachea midline. No JVD. CARDIOVASCULAR: Regular rate and rhythm. RESPIRATORY: No accessory muscle use. Clear to auscultation. Breath sounds equal bilaterally. GASTROINTESTINAL: Abdomen soft, non-tender, nondistended. Hepatic and splenic margins not palpable. MUSCULOSKELETAL: Extremities without clubbing, cyanosis, or edema. No obvious deformities. Left lower extremity stiffness NEUROLOGICAL: Awake and alert. No obvious cranial nerve deficits. Motor grossly within normal limits. Five out of 5 muscle strength in the arms and legs. Normal speech. PSYCHIATRIC: Appropriate mood and affect; insight and judgment normal. - Urinary Catheter Management Indwelling Urethral Catheter Cath placed during this visit: yes Reason for continuing: Acute urinary retention Insertion date: 11/07/18 Insertion time: 10:55 Results - Labs CBC & Chem 7: 11/07/18 06:10 11/07/18 06:10 - Procedures s/p L4/5 laminectomies for decompression of cauda equina Assessment and Plan - Plan 58-year-old man with Acute Cauda Equina Syndrome Patient with significant muscle stiffness LLE, no dorsiflexion R>L Appreciate input from neurosurgery s/p L4/5 laminectomies for decompression of cauda equina 11/07/18 s/p Decadron Continue muscle relaxant, pain management accordingly, currently on Neurontin 200 mg 4 times daily, Zanaflex 10 mg 3 times daily PT/OT to treat Hypocalcemia, hypophosphatemia Will give now 2 g K-phos and 2 gm calcium, then 2 additional grams each in 6- 8 hours Chronic hypothyroidism. Continue home medication. DVT prophylaxis: Bilateral SCDs
[2018-11-12] MEDS ORDERED: Potassium Phosphate 500 MG Soluble Tablet PO ONE (14:00)
[2018-11-12] MEDS ORDERED: Calcium Carbonate 500 MG Tablet PO ONE (14:00)
[2018-11-13] MEDS: oxyCODONE/Acetaminophen 10/325 Tablet PO PRN ×6 (01:45→23:49)
[2018-11-13] MEDS: Heparin - SQ 10,000 UNITS/ML Vial SQ SCH ×3 (05:09→21:08)
[2018-11-13] MEDS: Levothyroxine 88 MCG Tablet PO SCH (05:09)
[2018-11-13] MEDS: Morphine Sulfate Inj 2 MG/ML Vial IV.PUSH PRN ×4 (05:09→22:49)
[2018-11-13] MEDS ORDERED: Calcium Carbonate 500 MG Tablet PO ONE (09:00)
[2018-11-13] MEDS: Gabapentin 300 MG Capsule PO SCH ×3 (09:01→21:07)
[2018-11-13] MEDS: Potassium Phosphate 500 MG Soluble Tablet PO SCH ×2 (09:01→21:07)
--- NOTE | 2018-11-13 11:18 | P.PN ---
Subjective Interval history: Follow-up cauda equina syndrome November 13, 2018-patient seen and examined, he has multiple complaints this a.m. including insomnia overnight, left lower extremity stiffness, rectal pain due to hemorrhoid. Questionable malingering? Physical Exam Vital signs: Vital Signs 11/12/18 12:09 11/12/18 16:10 11/12/18 20:00 Temperature 98.2 F 100.3 F H 97.0 F L Pulse Rate 83 91 H 90 Respiratory Rate 20 20 20 Blood Pressure 106/55 L 132/62 154/65 H Pulse Oximetry 98 95 95 11/13/18 00:00 11/13/18 04:00 11/13/18 07:56 Temperature 97.2 F L 97.6 F 97.5 F L Pulse Rate 88 80 70 Respiratory Rate 20 18 18 Blood Pressure 118/62 109/55 L 104/58 L Pulse Oximetry 95 95 95 Intake & Output 11/12/18 11/13/18 11/13/18 18:59 06:59 18:59 Output Total 2700 / 2700 Balance -2700 / -2700 Weight 69.9 kg Output: Urine 2700 / 2700 Other: # Voids 4 Date of Last Bowel Movement 11/12/18 11/13/18 # Bowel Movements 1 1 Narrative: GENERAL: NAD SKIN: Warm and dry. HEAD: Atraumatic. Normocephalic. EYES: Pupils equal and round. No scleral icterus. No injection or drainage. ENT: No nasal bleeding or discharge. Mucous membranes pink and moist. NECK: Trachea midline. No JVD. CARDIOVASCULAR: Regular rate and rhythm. RESPIRATORY: No accessory muscle use. Clear to auscultation. Breath sounds equal bilaterally. GASTROINTESTINAL: Abdomen soft, non-tender, nondistended. Hepatic and splenic margins not palpable. MUSCULOSKELETAL: Extremities without clubbing, cyanosis, or edema. No obvious deformities. Left lower extremity stiffness NEUROLOGICAL: Awake and alert. No obvious cranial nerve deficits. Motor grossly within normal limits. Five out of 5 muscle strength in the arms and legs. Normal speech. PSYCHIATRIC: Appropriate mood and affect; insight and judgment normal. - Urinary Catheter Management Indwelling Urethral Catheter Cath placed during this visit: yes Reason for continuing: Acute urinary retention Insertion date: 11/07/18 Insertion time: 10:55 Results - Labs CBC & Chem 7: 11/07/18 06:10 11/07/18 06:10 - Procedures s/p L4/5 laminectomies for decompression of cauda equina Assessment and Plan - Plan 58-year-old man with Acute Cauda Equina Syndrome Patient with some residual muscle stiffness LLE, no dorsiflexion R>L Appreciate input from neurosurgery s/p L4/5 laminectomies for decompression of cauda equina 11/07/18 s/p Decadron Continue muscle relaxant, pain management accordingly, currently on Neurontin 200 mg 4 times daily, Zanaflex 10 mg 3 times daily PT/OT to treat Hypocalcemia, hypophosphatemia Will give again this AM 2 g K-phos and 2 gm calcium, Monitor BMP Chronic hypothyroidism. Continue home medication. Insomnia Start respiratory as needed at bedtime History of hemorrhoid Continue Preparation H DVT prophylaxis: Bilateral SCDs
[2018-11-13 12:56] LABS: Anion Gap 7 meq/L (5-15); Blood Urea Nitrogen 10 mg/dL (7-18); Carbon Dioxide 32.8 meq/L (21.0-32.0); Chloride 95 meq/L (98-107); Glomerular Filtration Rate Greater Than 89 mL/min (>89); Glucose,Random 94 mg/dL (74-106); Phosphorus 5.1 mg/dL (2.5-4.9); Potassium 4.4 meq/L (3.5-5.1); Sodium 135 meq/L (136-145)
[2018-11-13] MEDS: MINERAL OIL RECTAL PRN (21:07)
[2018-11-13] MEDS: PETROLATUM RECTAL PRN (21:07)
[2018-11-13] MEDS: PHENYLEPHRINE RECTAL PRN (21:07)
[2018-11-13] MEDS: Temazepam 15 MG Capsule PO PRN (21:07)
[2018-11-14] MEDS: oxyCODONE/Acetaminophen 10/325 Tablet PO PRN ×5 (03:33→20:22)
[2018-11-14] MEDS: Heparin - SQ 10,000 UNITS/ML Vial SQ SCH ×3 (05:49→22:42)
[2018-11-14] MEDS: Levothyroxine 88 MCG Tablet PO SCH (05:49)
[2018-11-14] MEDS: Morphine Sulfate Inj 2 MG/ML Vial IV.PUSH PRN ×4 (05:49→23:29)
[2018-11-14] MEDS: Potassium Phosphate 500 MG Soluble Tablet PO SCH ×2 (08:09→20:22)
[2018-11-14] MEDS: Gabapentin 300 MG Capsule PO SCH ×5 (08:10→22:43)
--- NOTE | 2018-11-14 08:29 | P.PNNS ---
Subjective Interval history: Showing improvement in muscle spasms from yesterday, continues with tightness in his ankles with numbness. also has at times pain radiating down his left leg posterolaterally to the ankle and foot. No overnight events Physical Exam Vital signs: Vital Signs 11/13/18 11:38 11/13/18 16:30 11/13/18 20:00 Temperature 97.3 F L 97.9 F 97.8 F Pulse Rate 79 81 86 Respiratory Rate 18 18 18 Blood Pressure 122/77 129/67 113/64 Pulse Oximetry 98 97 99 11/14/18 00:00 11/14/18 04:00 Temperature 99.7 F H 98.8 F Pulse Rate 78 71 Respiratory Rate 18 18 Blood Pressure 109/53 L 102/53 L Pulse Oximetry 97 94 L Intake & Output 11/13/18 11/14/18 11/14/18 18:59 06:59 18:59 Output Total 1200 / 1200 Balance -1200 / -1200 Weight 69.8 kg Output: Urine 1200 / 1200 Other: # Voids 4 Date of Last Bowel Movement 11/13/18 11/13/18 # Bowel Movements 1 - Urinary Catheter Management Indwelling Urethral Catheter Cath placed during this visit: yes Reason for continuing: Acute urinary retention Insertion date: 11/07/18 Insertion time: 10:55 Assessment and Plan - Plan Mr. Almeida is a homeless gentleman who is a current user of methamphetamine and cocaine, presenting with 3 weeks of symptoms consistent with cauda equina syndrome. His MRI reveals focal severe lumbar stenosis at L4/5. I feel that surgical decompression of the nerve roots at that level is indicated. I had a lengthy discussion about this with the patient, as well as with the patient's sister by phone, and both of them are in agreement to proceed with surgery. I explained the risks, including bleeding, infection, CSF leak, persistent symptoms, nerve damage, paralysis, weakness, sensory deficit, sexual dysfunction , , etc. The patient is aware that his current symptoms may be slow or incomplete to improve following surgery. However, I believe that he is likely to worsen and continue to lose function without surgical decompression, and for this reason he wishes to proceed. Plan for OR today. He underwent L4-[address] Prajapati 11/07/18 November 08, 2018 clinically improving following surgical decompression continue physical therapy and inpatient rehabilitation continue on Baclofen 10 mg, dw patient to ask for medication for muscle spasms recommend discontinuing good catheter, and straight cath as needed November 09, 2018 patient neurologically stable consistent with his cauda equina syndrome continue with physical therapy and rehabilitation, ?pt unable to qualify for [place] [facility] add Neurontin 300 mg TID to see if this helps recommend removing good catheter to see if he is able to void, if not straight cath prn and urology consult start SQ Heparin 5000 units q 8 hours for dvt prophylaxis, cont SCDs and TEDs discuss with nursing November 10, 2018 POD #3 continue with physical therapy and inpatient rehabilitation efforts cont Neurontin 300 tid, can taper up as needed if neuro symptoms not being controlled cont bowel regimen for constipation November 11, 2018 POD #4 patient with probably increased spasms in his legs and feet despite being on Baclofen 10 mg tid. Will discontinue the baclofen and start on Zanaflex 4 mg every 8 hours around the clock. Will also increase Neurontin to 300 mg QID. Obtain Ca, Mag, and Phos levels. nursing obtain post void bladder scanning - if needed straight cath. Will follow. November 12, 2018 patient with complaints of residual cauda equina symptoms. Will increase Zanaflex to every 6 hours. On Neurontin 300 mg qid, this can be tapered up as well if needed. Labs showed low levels of calcium and phos - medicine who will replace. discussed to increase mobilization which will help his symptoms. will follow. November 13, 2018 Patient still has some muscle spasm in distal BLE. better now on Zanaflex Would increase Gabapentin to 600 mg. po T.I.D Consider Valium 5 mg. po BID prn for a few days to help with the persistent muscle spasms. As there are no further acute Neurosurgical issues, will sign off and be available as needed.
[2018-11-14] MEDS ORDERED: Ketorolac Inj 30 MG/ML (IVP) Vial IV.PUSH PRN (08:54)
--- NOTE | 2018-11-14 15:43 | P.PNIM ---
Subjective Interval history: 58-year-old male who underwent laminectomy for treatment of cauda equina syndrome 4 days ago. He still complains of persisting left sciatic pain. We discussed postoperative swelling that oftentimes blurs improvement. Physical Exam Vital signs: Vital Signs 11/13/18 16:30 11/13/18 20:00 11/14/18 00:00 Temperature 97.9 F 97.8 F 99.7 F H Pulse Rate 81 86 78 Respiratory Rate 18 18 18 Blood Pressure 129/67 113/64 109/53 L Pulse Oximetry 97 99 97 11/14/18 04:00 11/14/18 07:54 11/14/18 08:00 Temperature 98.8 F 98.6 F Pulse Rate 71 75 Respiratory Rate 18 18 16 Blood Pressure 102/53 L 106/59 L Pulse Oximetry 94 L 97 11/14/18 11:50 Temperature 100.1 F H Pulse Rate 79 Respiratory Rate 20 Blood Pressure 122/61 Pulse Oximetry 96 Intake & Output 11/13/18 11/14/18 11/14/18 18:59 06:59 18:59 Output Total 1200 / 1200 Balance -1200 / -1200 Weight 69.8 kg Output: Urine 1200 / 1200 Other: # Voids 4 Date of Last Bowel Movement 11/13/18 11/13/18 # Bowel Movements 1 Narrative: GENERAL: Patient lying in bed. Appears comfortable. Alert and oriented x3. SKIN: Warm and dry. HEAD: Atraumatic. Normocephalic. EYES: Pupils equal and round. No scleral icterus. No injection or drainage. ENT: No nasal bleeding or discharge. Mucous membranes pink and moist. NECK: Trachea midline. No JVD. CARDIOVASCULAR: Regular rate and rhythm. RESPIRATORY: No accessory muscle use. Clear to auscultation. Breath sounds equal bilaterally. GASTROINTESTINAL: Abdomen soft, non-tender, nondistended. Hepatic and splenic margins not palpable. MUSCULOSKELETAL: Extremities without clubbing, cyanosis, or edema. No obvious deformities. NEUROLOGICAL: Awake and alert. No obvious cranial nerve deficits. Motor grossly within normal limits. Five out of 5 muscle strength in the arm. Bilateral leg weakness, decreased sensation. Normal speech. PSYCHIATRIC: Appropriate mood and affect; insight and judgment normal. Urinary Catheter Management Indwelling Urethral Catheter: Cath placed during this visit: yes Reason for continuing: Acute urinary retention Insertion date: 11/07/18 Insertion time: 10:55 Results Labs CBC & Chem 7: 11/07/18 06:10 11/13/18 11:40 Procedures Procedures: s/p L4/5 laminectomies for decompression of cauda equina Assessment and Plan Plan 58-year-old man with Acute Cauda Equina Syndrome s/p L4/5 laminectomies for decompression of cauda equina 11/07/18 s/p Decadron Patient still has bilateral ankle stiffness, chronic development, will need rehab Continue Zanaflex, Neurontin, pain management Add Toradol to address postoperative inflammation Continue PT / OT Hypocalcemia, hypophosphatemia Stable, monitor periodically with BMP Chronic hypothyroidism. Continue home medication. History of hemorrhoid Continue Preparation H DVT prophylaxis Bilateral SCDs Progress Note: Quality VTE Deep Vein Thrombosis/Pulmonary Embolism Present on Admission: No
[2018-11-14] MEDS: Temazepam 15 MG Capsule PO PRN (22:43)
[2018-11-14] MEDS: PETROLATUM RECTAL PRN (23:44)
[2018-11-14] MEDS: PHENYLEPHRINE RECTAL PRN (23:44)
[2018-11-14] MEDS: MINERAL OIL RECTAL PRN (23:44)
[2018-11-15] MEDS: oxyCODONE/Acetaminophen 10/325 Tablet PO PRN ×5 (02:47→23:24)
[2018-11-15] MEDS: Levothyroxine 88 MCG Tablet PO SCH (05:29)
[2018-11-15] MEDS: Heparin - SQ 10,000 UNITS/ML Vial SQ SCH ×3 (05:30→21:19)
[2018-11-15] MEDS: Gabapentin 300 MG Capsule PO SCH ×5 (08:58→21:19)
[2018-11-15] MEDS: Potassium Phosphate 500 MG Soluble Tablet PO SCH ×2 (08:58→21:18)
[2018-11-15] MEDS: Morphine Sulfate Inj 2 MG/ML Vial IV.PUSH PRN ×3 (09:05→22:18)
--- NOTE | 2018-11-15 09:59 | P.PNIM ---
Subjective Interval history: Patient reports he did not have any significant improvement compared to yesterday, the new medication Toradol was ordered as needed but he did not managed to get it yesterday. We discussed having it be a scheduled medication today. He complains of constipation and new hemorrhoids that are burning. Physical Exam Vital signs: Vital Signs 11/14/18 11:50 11/14/18 15:55 11/14/18 17:28 Temperature 100.1 F H 97.9 F Pulse Rate 79 87 Respiratory Rate 20 18 7 L Blood Pressure 122/61 128/77 Pulse Oximetry 96 95 11/14/18 20:19 11/15/18 00:00 11/15/18 04:00 Temperature 98.2 F 98.8 F 98 F Pulse Rate 78 69 71 Respiratory Rate 16 18 18 Blood Pressure 138/65 98/53 L 116/80 Pulse Oximetry 96 94 L 94 L 11/15/18 08:00 11/15/18 08:59 Temperature 97 F L Pulse Rate 66 Respiratory Rate 20 Blood Pressure 98/56 L 109/54 L Pulse Oximetry 98 Intake & Output 11/14/18 11/15/18 11/15/18 18:59 06:59 18:59 Output Total 1600 / 1600 Balance -1600 / -1600 Weight 69.8 kg Output: Urine 1600 / 1600 Other: Date of Last Bowel Movement 11/14/18 Narrative: GENERAL: Patient lying in bed. Appears comfortable. Alert and oriented x3. SKIN: Warm and dry. HEAD: Atraumatic. Normocephalic. EYES: Pupils equal and round. No scleral icterus. No injection or drainage. ENT: No nasal bleeding or discharge. Mucous membranes pink and moist. NECK: Trachea midline. No JVD. CARDIOVASCULAR: Regular rate and rhythm. RESPIRATORY: No accessory muscle use. Clear to auscultation. Breath sounds equal bilaterally. GASTROINTESTINAL: Abdomen soft, non-tender, nondistended. Hepatic and splenic margins not palpable. MUSCULOSKELETAL: Extremities without clubbing, cyanosis, or edema. No obvious deformities. NEUROLOGICAL: Awake and alert. No obvious cranial nerve deficits. Motor grossly within normal limits. Five out of 5 muscle strength in the arm. Bilateral leg weakness, decreased sensation. Normal speech. PSYCHIATRIC: Appropriate mood and affect; insight and judgment normal. Urinary Catheter Management Indwelling Urethral Catheter: Cath placed during this visit: yes Reason for continuing: Acute urinary retention Insertion date: 11/07/18 Insertion time: 10:55 Results Labs CBC & Chem 7: 11/07/18 06:10 11/13/18 11:40 Procedures Procedures: s/p L4/5 laminectomies for decompression of cauda equina Assessment and Plan Plan 58-year-old man with Acute Cauda Equina Syndrome s/p L4/5 laminectomies for decompression of cauda equina 11/07/18 s/p Decadron Patient still has bilateral ankle stiffness, chronic development, will need rehab Continue Zanaflex, Neurontin, pain management Scheduled Toradol to address postoperative inflammation If Toradol fails to improve his symptoms, resume steroid use with Solu-Medrol Continue PT / OT Hemorrhoids Hydrocortisone 2.5 mg rectal cream, 3 times daily Continue Preparation H Hypocalcemia, hypophosphatemia Stable, monitor periodically with BMP Chronic hypothyroidism. Continue home medication. DVT prophylaxis Bilateral SCDs Progress Note: Quality VTE Deep Vein Thrombosis/Pulmonary Embolism Present on Admission: No
[2018-11-15] MEDS: Ketorolac Inj 30 MG/ML (IVP) Vial IV.PUSH SCH ×3 (11:58→21:18)
[2018-11-16] MEDS: oxyCODONE/Acetaminophen 10/325 Tablet PO PRN ×5 (03:14→22:09)
[2018-11-16] MEDS: Levothyroxine 88 MCG Tablet PO SCH (04:59)
[2018-11-16] MEDS: Morphine Sulfate Inj 2 MG/ML Vial IV.PUSH PRN ×3 (05:00→18:10)
[2018-11-16] MEDS: Ketorolac Inj 30 MG/ML (IVP) Vial IV.PUSH SCH ×4 (05:00→22:10)
[2018-11-16] MEDS: Heparin - SQ 10,000 UNITS/ML Vial SQ SCH ×3 (05:00→22:10)
[2018-11-16] MEDS: Gabapentin 300 MG Capsule PO SCH ×4 (08:22→20:36)
--- NOTE | 2018-11-16 11:48 | P.PNIM ---
Subjective Interval history: Patient complains of worsening swelling and tenderness along the incision of his laminectomy. His hemorrhoids are improving with a steroid hemorrhoid cream. His pain is overall improved after adding Toradol. Physical Exam Vital signs: Vital Signs 11/15/18 20:00 11/15/18 23:40 11/16/18 00:00 Temperature 98.1 F 98.3 F Pulse Rate 79 85 Respiratory Rate 18 19 18 Blood Pressure 137/89 139/76 Pulse Oximetry 97 98 11/16/18 04:00 11/16/18 07:20 Temperature 97.6 F 97.0 F L Pulse Rate 75 67 Respiratory Rate 18 20 Blood Pressure 116/59 L 107/56 L Pulse Oximetry 97 99 Intake & Output 11/15/18 11/16/18 11/16/18 18:59 06:59 18:59 Intake Total 1500 / 1500 1200 / 1200 Output Total 2200 / 2200 300 / 300 Balance -700 / -700 900 / 900 Intake: Oral 1500 / 1500 1200 / 1200 Output: Urine 2200 / 2200 300 / 300 Other: Date of Last Bowel Movement 11/14/18 11/14/18 11/14/18 Narrative: GENERAL: Patient lying in bed. Appears comfortable. Alert and oriented x3. SKIN: Increased swelling compared to yesterday along lumbar incision, erythema beginning HEAD: Atraumatic. Normocephalic. EYES: Pupils equal and round. No scleral icterus. No injection or drainage. ENT: No nasal bleeding or discharge. Mucous membranes pink and moist. NECK: Trachea midline. No JVD. CARDIOVASCULAR: Regular rate and rhythm. RESPIRATORY: No accessory muscle use. Clear to auscultation. Breath sounds equal bilaterally. GASTROINTESTINAL: Abdomen soft, non-tender, nondistended. Hepatic and splenic margins not palpable. MUSCULOSKELETAL: Extremities without clubbing, cyanosis, or edema. No obvious deformities. NEUROLOGICAL: Awake and alert. No obvious cranial nerve deficits. Motor grossly within normal limits. Five out of 5 muscle strength in the arm. Bilateral leg weakness, decreased sensation. Normal speech. PSYCHIATRIC: Appropriate mood and affect; insight and judgment normal. Urinary Catheter Management Indwelling Urethral Catheter: Cath placed during this visit: yes Reason for continuing: Acute urinary retention Insertion date: 11/07/18 Insertion time: 10:55 Results Labs CBC & Chem 7: 11/07/18 06:10 11/13/18 11:40 Procedures Procedures: s/p L4/5 laminectomies for decompression of cauda equina Assessment and Plan Plan 58-year-old man with Acute Cauda Equina Syndrome s/p L4/5 laminectomies for decompression of cauda equina 11/07/18 s/p Decadron Patient still has bilateral ankle stiffness, chronic development, will need rehab Continue Zanaflex, Neurontin, pain management Scheduled Toradol has relieved some of his pain Continue PT OT Possible infection of surgical wound Increasing swelling compared to yesterday with new onset of erythema Begin IV Levaquin, follow clinically, CBC pending Hemorrhoids Hydrocortisone 2.5 mg rectal cream, 3 times daily Symptoms are improving following addition of steroid cream Continue Preparation H Hypocalcemia, hypophosphatemia Stable, monitor periodically with BMP Chronic hypothyroidism. Continue home medication. DVT prophylaxis Bilateral SCDs Progress Note: Quality VTE Deep Vein Thrombosis/Pulmonary Embolism Present on Admission: No
[2018-11-16] MEDS: Potassium Phosphate 500 MG Soluble Tablet PO SCH ×2 (12:05→20:36)
[2018-11-16 19:53] LABS: Hematocrit 30.7 % (39.0-51.0); Hemoglobin 10.3 gm/dL (13.0-17.0); Mean Corpuscular HGB Conc 33.5 % (32.0-36.0); Mean Corpuscular Hemoglobin 31.7 pg (27.0-34.0); Mean Corpuscular Volume 94.5 fL (80.0-100.0); Mean Platelet Volume 9.5 fL (7.0-11.0); Platelet Count 244 th/mm3 (150-450); Red Blood Count 3.24 mil/mm3 (4.50-5.90); Red Cell Distribution Width 13.3 % (11.6-17.2); White Blood Count 7.2 th/mm3 (4.0-11.0)
[2018-11-16] MEDS: Temazepam 15 MG Capsule PO PRN (20:36)
[2018-11-17] MEDS: Ketorolac Inj 30 MG/ML (IVP) Vial IV.PUSH SCH ×4 (03:29→22:49)
[2018-11-17] MEDS: oxyCODONE/Acetaminophen 10/325 Tablet PO PRN ×4 (03:29→20:39)
[2018-11-17] MEDS: Heparin - SQ 10,000 UNITS/ML Vial SQ SCH ×3 (05:09→22:49)
[2018-11-17] MEDS: Morphine Sulfate Inj 2 MG/ML Vial IV.PUSH PRN ×3 (05:10→18:32)
[2018-11-17] MEDS: Levothyroxine 88 MCG Tablet PO SCH (05:10)
[2018-11-17 07:21] LABS: Hematocrit 31.3 % (39.0-51.0); Hemoglobin 10.4 gm/dL (13.0-17.0); Mean Corpuscular HGB Conc 33.2 % (32.0-36.0); Mean Corpuscular Hemoglobin 31.4 pg (27.0-34.0); Mean Corpuscular Volume 94.6 fL (80.0-100.0); Mean Platelet Volume 9.8 fL (7.0-11.0); Platelet Count 266 th/mm3 (150-450); Red Blood Count 3.31 mil/mm3 (4.50-5.90); Red Cell Distribution Width 13.8 % (11.6-17.2); White Blood Count 7.3 th/mm3 (4.0-11.0)
[2018-11-17 07:43] LABS: Calcium 8.4 mg/dL (8.5-10.1); Carbon Dioxide 29.3 meq/L (21.0-32.0); Potassium 4.3 meq/L (3.5-5.1)
[2018-11-17] MEDS: Potassium Phosphate 500 MG Soluble Tablet PO SCH ×2 (10:04→20:41)
[2018-11-17] MEDS: Gabapentin 300 MG Capsule PO SCH ×4 (10:05→20:41)
--- NOTE | 2018-11-17 15:06 | P.PNIM ---
Subjective Interval history: Patient complains of increased back pain, but he does admit he has been moving more and having less sharp pain of his left-sided sciatica after receiving Toradol. Physical Exam Vital signs: Vital Signs 11/16/18 16:00 11/16/18 20:00 11/16/18 22:45 Temperature 98.4 F 98.4 F Pulse Rate 66 83 Respiratory Rate 20 18 19 Blood Pressure 125/58 L 107/59 L Pulse Oximetry 97 98 11/17/18 00:00 11/17/18 04:29 11/17/18 05:00 Temperature 98.1 F 97.6 F Pulse Rate 78 79 Respiratory Rate 18 19 18 Blood Pressure 118/64 115/61 Pulse Oximetry 98 96 11/17/18 06:27 11/17/18 07:10 11/17/18 08:00 Temperature 98.2 F Pulse Rate 66 87 Respiratory Rate 19 20 Blood Pressure 137/63 Pulse Oximetry 95 11/17/18 11:35 Temperature 99.2 F Pulse Rate 80 Respiratory Rate 20 Blood Pressure 115/58 L Pulse Oximetry 95 Intake & Output 11/16/18 11/17/18 11/17/18 18:59 06:59 18:59 Intake Total 150 / 150 150 / 150 Output Total 700 / 700 Balance 150 / 150 -700 / -700 150 / 150 Intake: IV 150 / 150 150 / 150 Levaquin 750 mg Premix Inj 150 150 / 150 150 / 150 ML @ 100 mls/hr IV.SIG Q24H [facility] Rx#:[id number] Output: Urine 700 / 700 Other: Date of Last Bowel Movement 11/14/18 11/14/18 Narrative: GENERAL: Patient lying in bed. Appears comfortable. Alert and oriented x3. SKIN: Increased swelling compared to yesterday along lumbar incision, erythema beginning HEAD: Atraumatic. Normocephalic. EYES: Pupils equal and round. No scleral icterus. No injection or drainage. ENT: No nasal bleeding or discharge. Mucous membranes pink and moist. NECK: Trachea midline. No JVD. CARDIOVASCULAR: Regular rate and rhythm. RESPIRATORY: No accessory muscle use. Clear to auscultation. Breath sounds equal bilaterally. GASTROINTESTINAL: Abdomen soft, non-tender, nondistended. Hepatic and splenic margins not palpable. MUSCULOSKELETAL: Extremities without clubbing, cyanosis, or edema. No obvious deformities. NEUROLOGICAL: Awake and alert. No obvious cranial nerve deficits. Motor grossly within normal limits. Five out of 5 muscle strength in the arm. Bilateral leg weakness, decreased sensation. Normal speech. PSYCHIATRIC: Appropriate mood and affect; insight and judgment normal. Urinary Catheter Management Indwelling Urethral Catheter: Cath placed during this visit: yes Reason for continuing: Acute urinary retention Insertion date: 11/07/18 Insertion time: 10:55 Results Labs CBC & Chem 7: 11/17/18 06:22 11/17/18 06:23 Procedures Procedures: s/p L4/5 laminectomies for decompression of cauda equina Assessment and Plan Plan 58-year-old man with Acute Cauda Equina Syndrome s/p L4/5 laminectomies for decompression of cauda equina 11/07/18 s/p Decadron Patient still has bilateral ankle stiffness, chronic development, will need rehab Continue Zanaflex, Neurontin, pain management Scheduled Toradol has relieved some of his pain Continue PT OT Possible infection of surgical wound Swelling and erythema in the area of surgical wound of laminectomy White blood cell pattern remains stable and within normal limits, patient is afebrile Continue daily Levaquin Hemorrhoids Hydrocortisone 2.5 mg rectal cream, 3 times daily Symptoms are improving following addition of steroid cream Continue Preparation H Hypocalcemia, hypophosphatemia Stable, monitor periodically with BMP Chronic hypothyroidism. Continue home medication. DVT prophylaxis Bilateral SCDs Progress Note: Quality VTE Deep Vein Thrombosis/Pulmonary Embolism Present on Admission: No
[2018-11-17] MEDS: Temazepam 15 MG Capsule PO PRN (22:49)
[2018-11-18] MEDS: oxyCODONE/Acetaminophen 10/325 Tablet PO PRN ×5 (02:56→18:46)
[2018-11-18] MEDS: Ketorolac Inj 30 MG/ML (IVP) Vial IV.PUSH SCH ×4 (04:09→22:08)
[2018-11-18] MEDS: Morphine Sulfate Inj 2 MG/ML Vial IV.PUSH PRN ×4 (04:09→22:09)
[2018-11-18] MEDS: Levothyroxine 88 MCG Tablet PO SCH (05:34)
[2018-11-18] MEDS: Heparin - SQ 10,000 UNITS/ML Vial SQ SCH ×3 (05:34→22:09)
[2018-11-18] MEDS: Potassium Phosphate 500 MG Soluble Tablet PO SCH ×2 (09:15→22:09)
[2018-11-18] MEDS: Gabapentin 300 MG Capsule PO SCH ×4 (09:16→22:09)
--- NOTE | 2018-11-18 13:17 | P.PNIM ---
Subjective Interval history: Patient's only complaint today is that he had some delay in getting his blood pressure medicines due to some hypotension. He has his tennis shoes on this morning as suggested by physical therapy. He is doing work on his own in addition to physical therapy to try to improve his walking functionality. Physical Exam Vital signs: Vital Signs 11/17/18 16:50 11/17/18 20:25 11/18/18 00:43 Temperature 97.9 F 98.3 F 97.7 F Pulse Rate 72 91 H 80 Respiratory Rate 20 20 20 Blood Pressure 95/50 L 139/77 119/61 Pulse Oximetry 95 100 98 11/18/18 04:55 11/18/18 08:00 11/18/18 12:23 Temperature 98.1 F 99.0 F 97.7 F Pulse Rate 89 113 H 73 Respiratory Rate 20 20 20 Blood Pressure 135/86 158/84 H 108/54 L Pulse Oximetry 96 96 98 Intake & Output 11/17/18 11/18/18 11/18/18 18:59 06:59 18:59 Intake Total 150 / 150 500 / 500 150 / 150 Output Total 1800 / 1800 Balance -1650 / -1650 500 / 500 150 / 150 Intake: IV 150 / 150 150 / 150 Levaquin 750 mg Premix Inj 150 150 / 150 150 / 150 ML @ 100 mls/hr IV.SIG Q24H [facility] Rx#:[id number] Oral 500 / 500 Output: Urine 1800 / 1800 Other: # Voids 3 Date of Last Bowel Movement 11/15/18 11/15/18 11/17/18 Narrative: GENERAL: Patient lying in bed. Appears comfortable. Alert and oriented x3. SKIN: Increased swelling compared to yesterday along lumbar incision, erythema beginning HEAD: Atraumatic. Normocephalic. EYES: Pupils equal and round. No scleral icterus. No injection or drainage. ENT: No nasal bleeding or discharge. Mucous membranes pink and moist. NECK: Trachea midline. No JVD. CARDIOVASCULAR: Regular rate and rhythm. RESPIRATORY: No accessory muscle use. Clear to auscultation. Breath sounds equal bilaterally. GASTROINTESTINAL: Abdomen soft, non-tender, nondistended. Hepatic and splenic margins not palpable. MUSCULOSKELETAL: Extremities without clubbing, cyanosis, or edema. No obvious deformities. NEUROLOGICAL: Awake and alert. No obvious cranial nerve deficits. Motor grossly within normal limits. Five out of 5 muscle strength in the arm. Bilateral leg weakness, decreased sensation. Normal speech. PSYCHIATRIC: Appropriate mood and affect; insight and judgment normal. Urinary Catheter Management Indwelling Urethral Catheter: Cath placed during this visit: yes Reason for continuing: Acute urinary retention Insertion date: 11/07/18 Insertion time: 10:55 Results Labs CBC & Chem 7: 11/17/18 06:22 11/17/18 06:23 Procedures Procedures: s/p L4/5 laminectomies for decompression of cauda equina Assessment and Plan Plan 11/18/2018 = continue with current care plan, monitor surgical wound daily for any worsening of erythema and swelling, continue Levaquin Acute Cauda Equina Syndrome s/p L4/5 laminectomies for decompression of cauda equina 11/07/18 s/p Decadron Patient still has bilateral ankle stiffness, chronic development, will need rehab Continue Zanaflex, Neurontin, pain management Scheduled Toradol has relieved some of his pain Continue PT OT Possible infection of surgical wound Swelling and erythema in the area of surgical wound of laminectomy White blood cell pattern remains stable and within normal limits, patient is afebrile Continue daily Levaquin Hemorrhoids Hydrocortisone 2.5 mg rectal cream, 3 times daily Symptoms are improving following addition of steroid cream Continue Preparation H Hypocalcemia, hypophosphatemia Stable, monitor periodically with BMP Chronic hypothyroidism. Continue home medication. DVT prophylaxis Bilateral SCDs Progress Note: Quality VTE Deep Vein Thrombosis/Pulmonary Embolism Present on Admission: No
[2018-11-18] MEDS: Temazepam 15 MG Capsule PO PRN (22:10)
[2018-11-19] MEDS: oxyCODONE/Acetaminophen 10/325 Tablet PO PRN ×5 (02:34→21:48)
[2018-11-19] MEDS: Ketorolac Inj 30 MG/ML (IVP) Vial IV.PUSH SCH ×4 (04:10→21:50)
[2018-11-19] MEDS: Morphine Sulfate Inj 2 MG/ML Vial IV.PUSH PRN ×4 (05:32→23:57)
[2018-11-19] MEDS: Heparin - SQ 10,000 UNITS/ML Vial SQ SCH ×3 (05:32→21:49)
[2018-11-19] MEDS: Levothyroxine 88 MCG Tablet PO SCH (05:32)
[2018-11-19] MEDS: Gabapentin 300 MG Capsule PO SCH ×4 (08:20→21:49)
[2018-11-19] MEDS: Potassium Phosphate 500 MG Soluble Tablet PO SCH ×2 (08:21→21:49)
[2018-11-19] MEDS ORDERED: Psyllium Fiber SF/GF 6 GM Packet PO PRN (09:49)
[2018-11-19] MEDS: Vancomycin Inj 1,000 MG in Sodium Chlor 0.9% Inj 250 ML IV.SIG SCH (13:52)
--- NOTE | 2018-11-19 16:17 | P.PNIM ---
Subjective Interval history: Patient reports low-grade fever overnight, still continues to have pain and swelling with redness along the incision of his lower back. Physical Exam Vital signs: Vital Signs 11/18/18 20:00 11/19/18 00:00 11/19/18 04:00 Temperature 97.9 F 98.1 F 97.9 F Pulse Rate 74 77 79 Respiratory Rate 20 18 20 Blood Pressure 122/59 L 123/55 L 122/60 Pulse Oximetry 95 96 97 11/19/18 07:40 11/19/18 12:00 Temperature 97.1 F L 97.3 F L Pulse Rate 71 79 Respiratory Rate 20 20 Blood Pressure 120/64 118/66 Pulse Oximetry 96 97 Intake & Output 11/18/18 11/19/18 11/19/18 18:59 06:59 18:59 Intake Total 150 / 150 750 / 750 400 / 400 Output Total 3000 / 3000 Balance 150 / 150 -2250 / -2250 400 / 400 Weight 69.9 kg Intake: IV 150 / 150 400 / 400 Levaquin 750 mg Premix Inj 150 150 / 150 150 / 150 ML @ 100 mls/hr IV.SIG Q24H [facility] Rx#:[id number] Vancomycin Inj 1,000 MG In NS 250 / 250 Inj 250 ML @ 250 mls/hr IV.SIG Q24H [facility] Rx#:[id number] Other 750 / 750 Output: Urine 3000 / 3000 Other: # Voids 1 Date of Last Bowel Movement 11/17/18 Narrative: GENERAL: Patient lying in bed. Appears comfortable. Alert and oriented x3. SKIN: Swelling and erythema along lumbar incision HEAD: Atraumatic. Normocephalic. EYES: Pupils equal and round. No scleral icterus. No injection or drainage. ENT: No nasal bleeding or discharge. Mucous membranes pink and moist. NECK: Trachea midline. No JVD. CARDIOVASCULAR: Regular rate and rhythm. RESPIRATORY: No accessory muscle use. Clear to auscultation. Breath sounds equal bilaterally. GASTROINTESTINAL: Abdomen soft, non-tender, nondistended. Hepatic and splenic margins not palpable. MUSCULOSKELETAL: Extremities without clubbing, cyanosis, or edema. No obvious deformities. NEUROLOGICAL: Awake and alert. No obvious cranial nerve deficits. Motor grossly within normal limits. Five out of 5 muscle strength in the arm. Bilateral leg weakness, decreased sensation. Normal speech. PSYCHIATRIC: Appropriate mood and affect; insight and judgment normal. Urinary Catheter Management Indwelling Urethral Catheter: Cath placed during this visit: yes Reason for continuing: Acute urinary retention Insertion date: 11/07/18 Insertion time: 10:55 Results Labs CBC & Chem 7: 11/17/18 06:22 11/17/18 06:23 Procedures Procedures: s/p L4/5 laminectomies for decompression of cauda equina Assessment and Plan Plan 11/18/2018 = continue with current care plan, monitor surgical wound daily for any worsening of erythema and swelling, continue Levaquin 11/19/2018 = patient had low-grade fever overnight, no improvement in appearance of wound, discontinue Levaquin, start vancomycin Acute Cauda Equina Syndrome s/p L4/5 laminectomies for decompression of cauda equina 11/07/18 s/p Decadron Patient still has bilateral ankle stiffness, chronic development, will need rehab Continue Zanaflex, Neurontin, pain management Scheduled Toradol has relieved some of his pain Continue PT OT Possible infection of surgical wound Swelling and erythema persists in the area of surgical wound of laminectomy White blood cell pattern remains stable the patient reports low-grade fever overnight Discontinue Levaquin, start vancomycin Hemorrhoids Hydrocortisone 2.5 mg rectal cream, 3 times daily Symptoms are improving following addition of steroid cream Continue Preparation H Hypocalcemia, hypophosphatemia Stable, monitor periodically with BMP Chronic hypothyroidism. Continue home medication. DVT prophylaxis Bilateral SCDs Progress Note: Quality VTE Deep Vein Thrombosis/Pulmonary Embolism Present on Admission: No
[2018-11-19] MEDS: Temazepam 15 MG Capsule PO PRN (22:02)
[2018-11-20] MEDS: Ketorolac Inj 30 MG/ML (IVP) Vial IV.PUSH SCH (04:08)
[2018-11-20] MEDS: oxyCODONE/Acetaminophen 10/325 Tablet PO PRN ×5 (04:09→20:18)
[2018-11-20] MEDS: Levothyroxine 88 MCG Tablet PO SCH (05:57)
[2018-11-20] MEDS: Morphine Sulfate Inj 2 MG/ML Vial IV.PUSH PRN ×4 (05:57→23:00)
[2018-11-20] MEDS: Heparin - SQ 10,000 UNITS/ML Vial SQ SCH ×3 (05:57→22:56)
[2018-11-20 07:40] LABS: Hemoglobin 10.5 gm/dL (13.0-17.0); Mean Corpuscular HGB Conc 33.9 % (32.0-36.0); Mean Corpuscular Hemoglobin 31.5 pg (27.0-34.0); Mean Corpuscular Volume 92.8 fL (80.0-100.0); Mean Platelet Volume 9.1 fL (7.0-11.0); Platelet Count 304 th/mm3 (150-450); Red Blood Count 3.35 mil/mm3 (4.50-5.90); Red Cell Distribution Width 13.3 % (11.6-17.2); White Blood Count 6.6 th/mm3 (4.0-11.0)
[2018-11-20 08:02] LABS: Calcium 9.1 mg/dL (8.5-10.1); Carbon Dioxide 30.3 meq/L (21.0-32.0); Potassium 4.6 meq/L (3.5-5.1)
[2018-11-20] MEDS: Gabapentin 300 MG Capsule PO SCH ×4 (08:03→20:13)
[2018-11-20] MEDS: Potassium Phosphate 500 MG Soluble Tablet PO SCH ×2 (08:03→20:12)
[2018-11-20] MEDS: Vancomycin Inj 1,000 MG in Sodium Chlor 0.9% Inj 250 ML IV.SIG SCH (11:32)
--- NOTE | 2018-11-20 12:58 | P.PNIM ---
Subjective Interval history: Mr. Llamas denies any further episodes of low-grade fever. His complaint today is that his ankles are sore after going on a stationary bike for 5 minutes yesterday with PT. Physical Exam Vital signs: Vital Signs 11/19/18 16:10 11/19/18 19:58 11/19/18 20:00 Temperature 97.6 F 98.1 F Pulse Rate 77 80 Respiratory Rate 20 19 18 Blood Pressure 139/68 103/50 L Pulse Oximetry 97 96 11/20/18 00:00 11/20/18 04:30 11/20/18 08:15 Temperature 98.3 F 98.2 F 98.3 F Pulse Rate 76 68 64 Respiratory Rate 18 17 18 Blood Pressure 104/57 L 123/71 127/71 Pulse Oximetry 97 94 L 97 11/20/18 12:14 Temperature 97.4 F L Pulse Rate 69 Respiratory Rate 18 Blood Pressure 108/58 L Pulse Oximetry 96 Intake & Output 11/19/18 11/20/18 11/20/18 18:59 06:59 18:59 Intake Total 400 / 400 Output Total 1500 / 1500 Balance 400 / 400 -1500 / -1500 Weight 69.9 kg Intake: IV 400 / 400 Levaquin 750 mg Premix Inj 150 150 / 150 ML @ 100 mls/hr IV.SIG Q24H [facility] Rx#:[id number] Vancomycin Inj 1,000 MG In NS 250 / 250 Inj 250 ML @ 250 mls/hr IV.SIG Q24H [facility] Rx#:[id number] Output: Urine 1500 / 1500 Other: # Voids 3 Narrative: GENERAL: Patient lying in bed. Appears comfortable. Alert and oriented x3. SKIN: Decreased erythema, swelling is the same HEAD: Atraumatic. Normocephalic. EYES: Pupils equal and round. No scleral icterus. No injection or drainage. ENT: No nasal bleeding or discharge. Mucous membranes pink and moist. NECK: Trachea midline. No JVD. CARDIOVASCULAR: Regular rate and rhythm. RESPIRATORY: No accessory muscle use. Clear to auscultation. Breath sounds equal bilaterally. GASTROINTESTINAL: Abdomen soft, non-tender, nondistended. Hepatic and splenic margins not palpable. MUSCULOSKELETAL: Extremities without clubbing, cyanosis, or edema. No obvious deformities. NEUROLOGICAL: Awake and alert. No obvious cranial nerve deficits. Motor grossly within normal limits. Five out of 5 muscle strength in the arm. Bilateral leg weakness, decreased sensation. Normal speech. PSYCHIATRIC: Appropriate mood and affect; insight and judgment normal. Urinary Catheter Management Indwelling Urethral Catheter: Cath placed during this visit: yes Reason for continuing: Acute urinary retention Insertion date: 11/07/18 Insertion time: 10:55 Results Labs CBC & Chem 7: 11/20/18 06:59 11/20/18 06:59 Procedures Procedures: s/p L4/5 laminectomies for decompression of cauda equina Assessment and Plan Plan 11/18/2018 = continue with current care plan, monitor surgical wound daily for any worsening of erythema and swelling, continue Levaquin 11/19/2018 = patient had low-grade fever overnight, no improvement in appearance of wound, discontinue Levaquin, start vancomycin 11/20/2018 = no further fevers after switching from Levaquin to vancomycin, continue current care plan Acute Cauda Equina Syndrome s/p L4/5 laminectomies for decompression of cauda equina 11/07/18 s/p Decadron Patient still has bilateral ankle stiffness, chronic development, will need rehab Continue Zanaflex, Neurontin, pain management Scheduled Toradol has relieved some of his pain Continue PT OT Possible infection of surgical wound Swelling persists, erythema improving after change from Levaquin to vancomycin White blood cell pattern remains stable the patient reports low-grade fever overnight Continue vancomycin IV Hemorrhoids Hydrocortisone 2.5 mg rectal cream, 3 times daily Symptoms are improving following addition of steroid cream Continue Preparation H Hypocalcemia, hypophosphatemia Stable, monitor periodically with BMP Chronic hypothyroidism. Continue home medication. DVT prophylaxis Bilateral SCDs Progress Note: Quality VTE Deep Vein Thrombosis/Pulmonary Embolism Present on Admission: No
[2018-11-20] MEDS: Temazepam 15 MG Capsule PO PRN (20:31)
[2018-11-21] MEDS: oxyCODONE/Acetaminophen 10/325 Tablet PO PRN ×5 (01:56→22:10)
[2018-11-21] MEDS: Morphine Sulfate Inj 2 MG/ML Vial IV.PUSH PRN (04:32)
[2018-11-21] MEDS: Heparin - SQ 10,000 UNITS/ML Vial SQ SCH ×3 (05:12→22:10)
[2018-11-21] MEDS: Levothyroxine 88 MCG Tablet PO SCH (05:13)
[2018-11-21] MEDS: Gabapentin 300 MG Capsule PO SCH ×4 (08:27→20:27)
[2018-11-21] MEDS: Potassium Phosphate 500 MG Soluble Tablet PO SCH ×2 (08:27→20:27)
[2018-11-21] MEDS ORDERED: Gadobutrol PF 7.5 MMOL/7.5 ML Vial (for RAD) IV.SIG ONE (10:31)
--- NOTE | 2018-11-21 10:55 | MR ---
EXAM DATE: 11/21/2018 10:49 AM EST AGE/SEX: 58 years / Male INDICATIONS: Extremity weakness. Right upper extremity pain and weakness. CLINICAL DATA: This is the patient's initial encounter. Patient reports that signs and symptoms have been present for 1 month and indicates a pain score of 4/10. MEDICAL/SURGICAL HISTORY: None. Discectomy, lumbar. COMPARISON: No prior exams available for comparison. TECHNIQUE: Multiplanar, multisequence MRI examination of the cervical spine was performed without co ntrast. FINDINGS: Vertebrae: Normal vertebral body height. Homogeneous marrow signal. Alignment: Loss of the normal cervical lordosis with multiple levels of retrolisthesis from C3 on C4 -C6 on C7. There is narrowing of the spinal canal from the level of C3 through the superior endplate of C7. Cord: There is focal cord compression seen at the level of C5/C6. The cord maintains normal signal. Post Fossa: The cerebellar tonsils are normal in position. C2-C3: Moderate to severe right-sided facet degenerative change and uncovertebral joint hypertrophy. Moderate right-sided neuroforaminal stenosis. C3-C4: Broad-based disc protrusion with slight extrusion superiorly and inferiorly. There is uncover tebral joint hypertrophy. Narrowing of the spinal canal in AP dimension without cord compression. Sev ere left-sided neuroforaminal stenosis and moderate to severe on the right. C4-C5: Disc desiccation and disc space narrowing with retrolisthesis of C4 on C5. Severe uncovertebr al joint hypertrophy resulting in severe bilateral neuroforaminal stenosis. Moderate narrowing of the spinal canal in AP dimension without cord compression. C5-C6: Posterior disc osteophyte complex, retrolisthesis of C5 on C6 resulting in severe spinal bigg l narrowing and cord impingement with effacement. Severe uncovertebral joint hypertrophy resulting in severe bilateral neuroforaminal stenosis. The cord is normal in signal. C6-C7: Retrolisthesis of C6 on C7 with posterior disc osteophyte complex abutting the anterior aspec t of the cord. Significant narrowing of the spinal canal in AP dimension without cord compression. Se johnathon uncovertebral joint hypertrophy resulting in severe bilateral neuroforaminal stenosis. C7-T1: No epidural impressions seen. CONCLUSION: 1. Severe degenerative changes identified throughout the cervical spine with multiple levels of retr olisthesis as noted above. There is narrowing of the spinal canal seen from C3 through the superior e ndplate of C7 with focal air or compression at the level of C5/C6. Multiple levels of severe neurofor aminal stenosis. Electronically signed by: Daina Anaya MD Board Certified Radiologist 11/21/2018 10:54 AM EST
[2018-11-21] MEDS: HYDROmorphone PF Inj 0.5 MG/0.5 ML Syringe IV.PUSH PRN ×3 (11:25→20:28)
[2018-11-21] MEDS: Vancomycin Inj 1,000 MG in Sodium Chlor 0.9% Inj 250 ML IV.SIG SCH (11:26)
--- NOTE | 2018-11-21 11:55 | MR ---
EXAM DATE: 11/21/2018 11:31 AM EST AGE/SEX: 58 years / Male INDICATIONS: Abscess. CLINICAL DATA: This is the patient's initial encounter. Patient reports that signs and symptoms have been present for 1 month and indicates a pain score of 4/10. MEDICAL/SURGICAL HISTORY: None. Discectomy, lumbar. [place] [facility] [place] 11/06/2018. . TECHNIQUE: Multiplanar, multisequence MRI examination of the lumbar spine was performed without and with 7CC ml Gadavist (gadobutrol) contrast as a single exam dose. FINDINGS: Sagittal T1, postcontrast T1 and T2-weighted imaging demonstrates postsurgical changes at the L4-5 le raina. There is extensive contrast enhancement in the subcutaneous soft tissues with a small fluid lisa ection at the site of the L4 laminectomy. Fluid collection measures approximately 3.5 x 1.0 x 6 cm. T his extends anteriorly down to and abuts the thecal sac. In addition, there is fluid which tracks pos teriorly to the skin surface. There is contrast enhancement around the fluid collection. There is dif fuse contrast enhancement involving the subcutaneous and deep soft tissues extending down to the oper ative bed. These findings are concerning for abscess. There is enhancement of the dura posteriorly ex tending from L4 down to S1. I do not see significant compression of the thecal sac secondary to the f luid collection. Axial imaging: T12-L1: The thecal sac has a normal diameter. No evidence of disc bulge or protrusion. The neural foramina are patent bilaterally. L1-L2: The thecal sac has a normal diameter. No evidence of disc bulge or protrusion. The neural foramina are patent bilaterally. L2-L3: There is desiccation of the disks with a small broad-based disc bulge. There is moderate fac et arthritis bilaterally. The thecal space appear adequate. The foramina appear adequate. L3-L4: There is desiccation of the disc with a small disc bulge. There is mild facet arthritis bila terally. The thecal space and foramina appear adequate. L4-L5: There are extensive postsurgical changes at this level with a fluid collection seen extendin g from the dura essentially up to the skin surface. This is described in detail above. There is broad -based disc protrusion anteriorly. There is effacement of the anterior thecal sac and encroachment of disc protrusion on the lateral recess and base of the foramina bilaterally. This is significantly sm aller in size than seen on previous of 11/06. There is some enhancement along the anterior kaylie in of this consistent with discectomy as well. L5-S1: The thecal space is adequate. The foramina are adequate. There is mild facet arthritis bilat erally. CONCLUSION: 1. There are extensive postsurgical changes consistent with laminectomy and discectomy at L4-5. Ther e is a fluid collection evident within the operative bed extending to the skin surface. There is exte nsive contrast enhancement around this. This is concerning for abscess. This is described in detail a jenniffer. Electronically signed by: Juan Patel MD Board Certified Radiologist 11/21/2018 11:54 AM EST
--- NOTE | 2018-11-21 11:58 | P.PNIM ---
Subjective Interval history: She complains of pain persisting in his bilateral ankles, he also reports the swelling persist in his lower back and that his neck has been hurting into his left shoulder since admission but no imaging has been done. Physical Exam Vital signs: Vital Signs 11/20/18 12:14 11/20/18 16:31 11/20/18 20:30 Temperature 97.4 F L 98.0 F 98.0 F Pulse Rate 69 80 75 Respiratory Rate 18 18 19 Blood Pressure 108/58 L 114/61 129/63 Pulse Oximetry 96 95 99 11/21/18 00:50 11/21/18 05:15 11/21/18 08:00 Temperature 98.3 F 97.8 F 98.0 F Pulse Rate 75 77 66 Respiratory Rate 20 17 16 Blood Pressure 106/59 L 120/63 127/58 L Pulse Oximetry 97 99 97 Intake & Output 11/20/18 11/21/18 11/21/18 18:59 06:59 18:59 Intake Total 2250 / 2250 Output Total 1000 / 1000 1200 / 1200 Balance 1250 / 1250 -1200 / -1200 Weight 69.9 kg Intake: IV 250 / 250 Vancomycin Inj 1,000 MG In NS 250 / 250 Inj 250 ML @ 250 mls/hr IV.SIG Q24H [facility] Rx#:[id number] Oral 1999 / 1999 Output: Urine 1000 / 1000 1200 / 1200 Other: # Bowel Movements 1 Narrative: GENERAL: Patient lying in bed. Appears comfortable. Alert and oriented x3. SKIN: Decreased erythema, swelling is the same HEAD: Atraumatic. Normocephalic. EYES: Pupils equal and round. No scleral icterus. No injection or drainage. ENT: No nasal bleeding or discharge. Mucous membranes pink and moist. NECK: Trachea midline. No JVD. CARDIOVASCULAR: Regular rate and rhythm. RESPIRATORY: No accessory muscle use. Clear to auscultation. Breath sounds equal bilaterally. GASTROINTESTINAL: Abdomen soft, non-tender, nondistended. Hepatic and splenic margins not palpable. MUSCULOSKELETAL: Extremities without clubbing, cyanosis, or edema. No obvious deformities. NEUROLOGICAL: Awake and alert. No obvious cranial nerve deficits. Motor grossly within normal limits. Five out of 5 muscle strength in the arm. Bilateral leg weakness, decreased sensation. Normal speech. PSYCHIATRIC: Appropriate mood and affect; insight and judgment normal. Urinary Catheter Management Indwelling Urethral Catheter: Cath placed during this visit: yes Reason for continuing: Acute urinary retention Insertion date: 11/07/18 Insertion time: 10:55 Results Labs CBC & Chem 7: 11/20/18 06:59 11/20/18 06:59 Imaging Imaging: Impressions Cervical Spine MRI 11/21/18 00:00 CONCLUSION: 1. Severe degenerative changes identified throughout the cervical spine with multiple levels of retrolisthesis as noted above. There is narrowing of the spinal canal seen from C3 through the superior endplate of C7 with focal air or compression at the level of C5/C6. Multiple levels of severe neuroforaminal stenosis. Lumbar Spine MRI 11/21/18 00:00 CONCLUSION: 1. There are extensive postsurgical changes consistent with laminectomy and discectomy at L4-5. There is a fluid collection evident within the operative bed extending to the skin surface. There is extensive contrast enhancement around this. This is concerning for abscess. This is described in detail above. Procedures Procedures: s/p L4/5 laminectomies for decompression of cauda equina Assessment and Plan Plan 11/18/2018 = continue with current care plan, monitor surgical wound daily for any worsening of erythema and swelling, continue Levaquin 11/19/2018 = patient had low-grade fever overnight, no improvement in appearance of wound, discontinue Levaquin, start vancomycin 11/20/2018 = no further fevers after switching from Levaquin to vancomycin, continue current care plan 11/21/2018 = pain medication adjusted up for better coverage, Dilaudid replacing morphine, imaging studies ordered Acute Cauda Equina Syndrome s/p L4/5 laminectomies for decompression of cauda equina 11/07/18 s/p Decadron Patient still has bilateral ankle stiffness, chronic development, will need rehab Continue Zanaflex, Neurontin, pain management Scheduled Toradol has relieved some of his pain Continue PT OT Possible infection of surgical wound Swelling persists, erythema improving after change from Levaquin to vancomycin White blood cell pattern remains stable the patient reports low-grade fever overnight MRI of lumbar spine to investigate for possible deeper infection, or bleeding, or other Continue vancomycin IV Left neck and shoulder pain MRI of cervical spine pending Hemorrhoids Hydrocortisone 2.5 mg rectal cream, 3 times daily Symptoms are improving following addition of steroid cream Continue Preparation H Hypocalcemia, hypophosphatemia Stable, monitor periodically with BMP Chronic hypothyroidism. Continue home medication. DVT prophylaxis Bilateral SCDs Progress Note: Quality VTE Deep Vein Thrombosis/Pulmonary Embolism Present on Admission: No
[2018-11-21] MEDS: Temazepam 15 MG Capsule PO PRN (20:27)
[2018-11-22] MEDS: HYDROmorphone PF Inj 0.5 MG/0.5 ML Syringe IV.PUSH PRN ×6 (01:05→22:35)
[2018-11-22] MEDS: oxyCODONE/Acetaminophen 10/325 Tablet PO PRN ×4 (02:49→15:02)
[2018-11-22] MEDS: Levothyroxine 88 MCG Tablet PO SCH (05:15)
[2018-11-22] MEDS: Heparin - SQ 10,000 UNITS/ML Vial SQ SCH ×3 (05:15→21:34)
[2018-11-22] MEDS: Potassium Phosphate 500 MG Soluble Tablet PO SCH ×2 (09:38→21:02)
[2018-11-22] MEDS: Gabapentin 300 MG Capsule PO SCH ×4 (09:39→20:10)
--- NOTE | 2018-11-22 13:00 | P.PNIM ---
Subjective Interval history: Patient reports a little bit of improvement in his pain since morphine was replaced with Dilaudid. We discussed the results of his MRI findings. Physical Exam Vital signs: Vital Signs 11/21/18 16:14 11/21/18 20:00 11/22/18 00:00 Temperature 98.3 F 97.8 F 97.9 F Pulse Rate 76 77 78 Respiratory Rate 20 18 20 Blood Pressure 118/60 126/60 126/64 Pulse Oximetry 96 98 99 11/22/18 05:25 11/22/18 07:30 Temperature 97.8 F 98.0 F Pulse Rate 75 79 Respiratory Rate 20 20 Blood Pressure 125/60 121/62 Pulse Oximetry 97 97 Intake & Output 11/21/18 11/22/18 11/22/18 18:59 06:59 18:59 Intake Total 2750 / 2750 1800 / 1800 Output Total 1400 / 1400 Balance 2750 / 2750 400 / 400 Weight 74.2 kg Intake: IV 250 / 250 Vancomycin Inj 1,000 MG In NS 250 / 250 Inj 250 ML @ 250 mls/hr IV.SIG Q24H [facility] Rx#:[id number] Oral 2500 / 2500 Other 1800 / 1800 Output: Urine 1400 / 1400 Other: # Bowel Movements 1 Narrative: GENERAL: Patient lying in bed. Appears comfortable. Alert and oriented x3. SKIN: Decreased erythema, swelling is the same HEAD: Atraumatic. Normocephalic. EYES: Pupils equal and round. No scleral icterus. No injection or drainage. ENT: No nasal bleeding or discharge. Mucous membranes pink and moist. NECK: Trachea midline. No JVD. CARDIOVASCULAR: Regular rate and rhythm. RESPIRATORY: No accessory muscle use. Clear to auscultation. Breath sounds equal bilaterally. GASTROINTESTINAL: Abdomen soft, non-tender, nondistended. Hepatic and splenic margins not palpable. MUSCULOSKELETAL: Extremities without clubbing, cyanosis, or edema. No obvious deformities. NEUROLOGICAL: Awake and alert. No obvious cranial nerve deficits. Motor grossly within normal limits. Five out of 5 muscle strength in the arm. Bilateral leg weakness, decreased sensation. Normal speech. PSYCHIATRIC: Appropriate mood and affect; insight and judgment normal. Urinary Catheter Management Indwelling Urethral Catheter: Cath placed during this visit: yes Reason for continuing: Acute urinary retention Insertion date: 11/07/18 Insertion time: 10:55 Results Labs CBC & Chem 7: 11/20/18 06:59 11/20/18 06:59 Procedures Procedures: s/p L4/5 laminectomies for decompression of cauda equina Assessment and Plan Plan 11/18/2018 = continue with current care plan, monitor surgical wound daily for any worsening of erythema and swelling, continue Levaquin 11/19/2018 = patient had low-grade fever overnight, no improvement in appearance of wound, discontinue Levaquin, start vancomycin 11/20/2018 = no further fevers after switching from Levaquin to vancomycin, continue current care plan 11/21/2018 = pain medication adjusted up for better coverage, Dilaudid replacing morphine, imaging studies ordered 11/22/2018 = less pain today, erythema of lumbar wound persists, MRI of lumbar shows fluid collection, possible abscess Acute Cauda Equina Syndrome s/p L4/5 laminectomies for decompression of cauda equina 11/07/18 s/p Decadron Patient still has bilateral ankle stiffness, chronic development, will need rehab Continue Zanaflex, Neurontin, pain management Scheduled Toradol has relieved some of his pain Continue PT OT Possible infection of surgical wound MRI of lumbar spine shows collection of fluid within surgical wound, possible abscess Neurosurgery reconsulted to evaluate for wound infection Continue IV vancomycin Cervical stenosis Patient has severe cervical stenosis throughout cervical spine Symptomatic with neck stiffness, pain, left shoulder stiffness Discussed with physical therapy, exercises requested Neurosurgery was informed, evaluation requested Hemorrhoids Resolved Hydrocortisone 2.5 mg rectal cream, 3 times daily as needed Continue Preparation H as needed Hypocalcemia, hypophosphatemia Stable, monitor periodically with BMP Chronic hypothyroidism. Continue home medication. DVT prophylaxis Bilateral SCDs Progress Note: Quality VTE Deep Vein Thrombosis/Pulmonary Embolism Present on Admission: No
[2018-11-22] MEDS: Vancomycin Inj 1,000 MG in Sodium Chlor 0.9% Inj 250 ML IV.SIG SCH (13:51)
--- NOTE | 2018-11-22 16:18 | P.CONNS ---
History of Present Illness Service: Neurosurgery Consult date: 11/22/18 Requesting Physician: Antoni Manjarrez Reason for Consult: post-operative wound infection Primary Care Provider: No Primary Care Physician Chief Complaint: Possible cauda equina syndrome History of Present Illness: I was asked by Dr. Manjarrez to see and evaluate this unfortunate 58-year-old gentleman, well known to our service, homeless and with history of drug abuse, who last month presents with a one-month history of worsening lower extremity weakness, paresthesias, and saddle anesthesia. He states that for more than a year he has had "pinched nerve "symptoms, but that they have been worsening over the last 3 weeks. He has frequent cramping pain in his lower extremities, and cannot walk more than 1 block before his legs give out from weakness. His symptoms are relieved by leaning forward and sitting down. Over the last 3 weeks, he has also had trouble feeling his perineum when he defecates, though he still can control his bowel and bladder function and has not been incontinent. He presented to the ER with these complaints, and MRI imaging revealed focal severe lumbar stenosis at the L4/5 interspace due to a combination of disc bulge and severe facet/ligamentum hypertrophy. Neurosurgery was consulted to assess him he was subsequently taken to the OR by Dr. Prajapati for deompression. The patient did well and was ultimately transferred to Rehab. we are now reconsulted for possible post-operative wound infection. Review of Systems All other systems reviewed negative except as stated in HPI PMFSH - History History Provided By: Patient - Medical History Medical History: Medical History (Last Reviewed 11/22/18 @ 16:55 by Satinder Garcia MD) Hypothyroid - Surgical History Surgical History: Surgical History (Last Reviewed 11/22/18 @ 16:55 by Satinder Garcia MD) No history of previous surgery - Family History Family History: Family History (Last Reviewed 11/22/18 @ 16:55 by Satinder Garcia MD) Father Healthy adult male Mother Heart disease - Tobacco History Second Hand Smoke Exposure: No Tobacco Use In Past 30 Days: Yes Smoking Status: Never smoker Tobacco Type: Cigarettes - Alcohol History How Often Do You Have a Drink Containing Alcohol: 2 to 4 times a month - Substance Use History Substance History: Active Abuse (Patient is an active drug user. He tells me that he last used drugs about 48 hours ago. He uses cocaine and methamphetamine. He denies needle use.) - Travel History Recent Travel in the [place] Within the Last 8 Weeks: No Recent Travel Out of the Country Within the Last 8 Weeks: No - Immunization History Tetanus Immunization: <5 Years Tetanus Immunization Year if Known: 2016 Hx Influenza Vaccine This Season: No Medications and Allergies Active Medications: Active Medications Acetaminophen (Tylenol) 650 mg PO Q4H PRN PRN Reason: Temp > 100.4 Al Hydroxide/Mg Hydroxide (Milk Of Magnesia Liq) 30 ml PO Q12H PRN PRN Reason: Mild Constipation Last Admin: 11/17/18 20:52 Dose: 30 ml Bisacodyl (Dulcolax Supp) 10 mg RECTAL DAILY PRN PRN Reason: SEVERE CONSITIPATION Cetirizine HCl (Zyrtec) 10 mg PO BID [facility] Last Admin: 11/22/18 09:38 Dose: 10 mg Enalaprilat (Vasotec Inj) 1.25 mg IV.PUSH Q6H PRN PRN Reason: SBP>180, DBP>100, HR>65 Gabapentin (Neurontin) 300 mg PO QID [facility] Last Admin: 11/22/18 13:51 Dose: 300 mg Heparin Sodium (Porcine) (Heparin Inj) 5,000 units SQ Q8HR [facility] Last Admin: 11/22/18 13:52 Dose: 5,000 units Hydrocortisone Acetate (Anusol-Hc) 1 applicatio RECTAL TID [facility] Last Admin: 11/22/18 13:52 Dose: 1 applicatio Hydromorphone HCl (Dilaudid Pf Inj) 0.5 mg IV.PUSH Q4H PRN PRN Reason: BREAKTHROUGH PAIN Last Admin: 11/22/18 13:51 Dose: 0.5 mg Vancomycin HCl 1,000 mg/ (Sodium Chloride) 250 mls @ 250 mls/hr IV.SIG Q24H [facility] Last Admin: 11/22/18 13:51 Dose: 250 mls/hr Lactulose (Lactulose Liq) 30 ml PO DAILY PRN PRN Reason: SEVERE CONSITIPATION Last Admin: 11/19/18 11:57 Dose: 30 ml Levothyroxine Sodium (Synthroid) 88 mcg PO DAILY@0600 [facility] Last Admin: 11/22/18 05:15 Dose: 88 mcg Ondansetron HCl (Zofran Inj) 4 mg IV.PUSH Q6H PRN PRN Reason: NAUSEA OR VOMITING Oxycodone/Acetaminophen (Percocet 10/325 Mg) 1 tab PO Q4H PRN PRN Reason: Acute Pain Last Admin: 11/22/18 15:02 Dose: 1 tab Phenyleph/Shark Oil/Min Oil/Petrol (Preparation H Oint) 1 applicatio RECTAL Q6H PRN PRN Reason: HEMORRHOIDS Last Admin: 11/14/18 23:44 Dose: 1 applicatio Potassium Phosphate (K-Phos Original) 2,000 mg PO BID [facility] Last Admin: 11/22/18 09:38 Dose: 2,000 mg Psyllium Hydrophilic Mucilloid (Metamucil Smooth Texture Sf/Gf Pkt) 1 packet PO BID PRN PRN Reason: CONSTIPATION Last Admin: 11/20/18 12:14 Dose: 1 packet Sennosides (Senokot) 17.2 mg PO Q12H PRN PRN Reason: Moderate Constipation Last Admin: 11/12/18 06:22 Dose: 17.2 mg Sodium Chloride (Ns Flush) 2 ml IV.FLUSH BID [facility] Last Admin: 11/22/18 09:38 Dose: 2 ml Sodium Chloride (Ns Flush) 2 ml IV.FLUSH PRN PRN PRN Reason: FLUSH AFTER USING IV ACCESS Last Admin: 11/07/18 05:04 Dose: 2 ml Temazepam (Restoril) 15 mg PO HS PRN PRN Reason: INSOMNIA Last Admin: 11/21/18 20:27 Dose: 15 mg Tizanidine HCl (Zanaflex) 4 mg PO Q6H [facility] Last Admin: 11/22/18 10:54 Dose: 4 mg Allergies Allergy/AdvReac Type Severity Reaction Status Date / Time aspirin Allergy Hives Verified 11/06/18 21:04 PCN Allergy Severe Cardiac Uncoded 09/03/18 00:17 Arrest Home Medications Medication Instructions Recorded Confirmed Type levothyroxine 88 mcg PO DAILY 04/20/18 11/06/18 History Exam Vital signs: Vital Signs 11/21/18 20:00 11/22/18 00:00 11/22/18 05:25 Temperature 97.8 F 97.9 F 97.8 F Pulse Rate 77 78 75 Respiratory Rate 18 20 20 Blood Pressure 126/60 126/64 125/60 Pulse Oximetry 98 99 97 11/22/18 07:30 Temperature 98.0 F Pulse Rate 79 Respiratory Rate 20 Blood Pressure 121/62 Pulse Oximetry 97 Intake & Output 11/21/18 11/22/18 11/22/18 18:59 06:59 18:59 Intake Total 2750 / 2750 1800 / 1800 Output Total 1400 / 1400 Balance 2750 / 2750 400 / 400 Weight 74.2 kg Intake: IV 250 / 250 Vancomycin Inj 1,000 MG In NS 250 / 250 Inj 250 ML @ 250 mls/hr IV.SIG Q24H [facility] Rx#:[id number] Oral 2500 / 2500 Other 1800 / 1800 Output: Urine 1400 / 1400 Other: # Bowel Movements 1 - Constitutional no acute distress - Routine HEENT Exam Head: Present: normocephalic, atraumatic Eye: Present: EOMI, PERRL, normal accommodation ENT: Present: mucous membranes moist, oropharynx clear - Routine Neck Exam Present: supple, full ROM, trachea midline - Routine Extremities Exam Present: full ROM, pulses intact, normal capillary refill - Routine Skin Exam Present: intact, warm, normal turgor - Routine Neurological Exam Present: alert, oriented X3, CN II-XII intact, sensory deficit, moving all extremities, normal tone, vision grossly intact, hearing grossly intact, normal speech Patient is ambulating with a walker and in no acute distress. His motor strength is 5/5 in lower extremities. He reports perineal numbness improved. Surgical wound isedematous and erythematous.. - Detailed Neurological Exam: Coma Scale Eye Opening: Spontaneous Verbal Response: Oriented Motor Response: Obey commands R[place]y Coma Scale Total: 15 - Routine Psychiatric Exam Present: normal affect, normal thought process, cooperative Results - Laboratory Findings CBC and BMP: 11/20/18 06:59 11/20/18 06:59 Abnormal lab findings: Abnormal Labs 11/06/18 11/06/18 11/07/18 23:00 23:00 06:10 RBC 4.23 L 4.18 L Hgb Hct 38.8 L Neut % (Auto) 85.2 H Kingman % (Auto) 11.3 H Eos % (Auto) 4.7 H Lymph # (Auto) 0.5 L Sodium 135 L Chloride Carbon Dioxide Estimated GFR Random Glucose Calcium Phosphorus AST 54 H 11/07/18 11/11/18 11/13/18 06:10 11:28 11:40 RBC Hgb Hct Neut % (Auto) Kingman % (Auto) Eos % (Auto) Lymph # (Auto) Sodium 135 L Chloride 95 L Carbon Dioxide 32.8 H Estimated GFR Random Glucose Calcium 8.3 L Phosphorus 1.8 L 5.1 H AST 51 H 11/16/18 11/17/18 11/17/18 19:14 06:22 06:23 RBC 3.24 L 3.31 L Hgb 10.3 L 10.4 L Hct 30.7 L 31.3 L Neut % (Auto) Kingman % (Auto) Eos % (Auto) Lymph # (Auto) Sodium Chloride Carbon Dioxide Estimated GFR 88 L Random Glucose 112 H Calcium 8.4 L Phosphorus AST 11/20/18 11/20/18 06:59 06:59 RBC 3.35 L Hgb 10.5 L Hct 31.0 L Neut % (Auto) Kingman % (Auto) Eos % (Auto) Lymph # (Auto) Sodium Chloride Carbon Dioxide Estimated GFR 78 L Random Glucose Calcium Phosphorus AST - Diagnostic Findings EKG: report reviewed, image reviewed (Lumbar and cervical MRI reviewed.) Assessment and Plan - Plan Mr. Almeida is a homeless gentleman who is a current user of methamphetamine and cocaine, last month presenting with 3 weeks of symptoms consistent with cauda equina syndrome and lumbar MRI reveals focal severe lumbar stenosis at L4/5. He underwent an L4-[address] Prajapati 11/07/18 The patient was doing well, with continued improvement until about a week ago when he developed a small wound leak and since then, he has had increasing LBP with minimal drainage from the apex of the incision Needs ESR and CRP NPO after MN for possible wound revision and washout Will follow .
[2018-11-22] MEDS: Temazepam 15 MG Capsule PO PRN (20:11)
[2018-11-22 21:39] LABS: Activated Partial Thrombo Time 25.5 sec (23.4-31.7); INR 0.9 Ratio; Prothrombin Time 9.6 sec (9.8-11.6)
[2018-11-23] MEDS: oxyCODONE/Acetaminophen 10/325 Tablet PO PRN ×5 (01:46→20:25)
[2018-11-23] MEDS: Levothyroxine 88 MCG Tablet PO SCH (05:09)
[2018-11-23] MEDS: Heparin - SQ 10,000 UNITS/ML Vial SQ SCH ×3 (05:13→23:02)
[2018-11-23] MEDS ORDERED: Metoprolol Tartrate 25 MG Tablet PO ONE (08:15)
[2018-11-23] MEDS ORDERED: Sodium Chlor 0.9% Inj 500 ML IV.CONT ONE (08:15)
[2018-11-23] MEDS ORDERED: Chlorhexidine Gluconate 2% 1 Pack (2 Cloths) TOPICAL ONE (08:15)
[2018-11-23] MEDS: HYDROmorphone PF Inj 0.5 MG/0.5 ML Syringe IV.PUSH PRN ×3 (08:16→23:19)
[2018-11-23] MEDS: Gabapentin 300 MG Capsule PO SCH ×4 (08:16→20:25)
[2018-11-23 08:18] LABS: Hematocrit 33.5 % (39.0-51.0); Hemoglobin 11.4 gm/dL (13.0-17.0); Mean Corpuscular Hemoglobin 31.5 pg (27.0-34.0); Mean Corpuscular Volume 92.7 fL (80.0-100.0); Mean Platelet Volume 8.6 fL (7.0-11.0); Platelet Count 378 th/mm3 (150-450); Red Blood Count 3.62 mil/mm3 (4.50-5.90); Red Cell Distribution Width 13.1 % (11.6-17.2); White Blood Count 7.3 th/mm3 (4.0-11.0)
[2018-11-23 08:53] LABS: Anion Gap 7 meq/L (5-15); Blood Urea Nitrogen 13 mg/dL (7-18); Calcium 9.2 mg/dL (8.5-10.1); Carbon Dioxide 31.3 meq/L (21.0-32.0); Chloride 103 meq/L (98-107); Glomerular Filtration Rate Greater Than 89 mL/min (>89); Glucose,Random 90 mg/dL (74-106); Potassium 4.4 meq/L (3.5-5.1); Sodium 141 meq/L (136-145)
--- NOTE | 2018-11-23 09:21 | P.PN ---
Subjective Interval history: afebrile minimal low back discomfort no urinary or fecal incontinence Physical Exam Vital signs: Vital Signs 11/22/18 12:00 11/22/18 20:50 11/23/18 00:45 Temperature 98.1 F 97.9 F 98.6 F Pulse Rate 80 78 71 Respiratory Rate 20 20 20 Blood Pressure 120/69 113/56 L 105/54 L Pulse Oximetry 99 96 96 11/23/18 04:40 11/23/18 07:40 Temperature 98.1 F 98.3 F Pulse Rate 73 74 Respiratory Rate 20 17 Blood Pressure 138/83 115/71 Pulse Oximetry 95 97 Intake & Output 11/22/18 11/23/18 11/23/18 18:59 06:59 18:59 Intake Total 610 / 610 Balance 610 / 610 Intake: IV 250 / 250 Vancomycin Inj 1,000 MG In NS 250 / 250 Inj 250 ML @ 250 mls/hr IV.SIG Q24H [facility] Rx#:[id number] Oral 360 / 360 Other: # Voids 3 4 Narrative: awake and alert, no distress afebrile anicteric luyngs- no rales regular rhythm abdomen soft, nontender back- low back area- spine- post op site - with area of surrounding erythema and fluctuance- UE- motor 5/5 lower extremities - motor 4/5, grossly no sensory deficits - Urinary Catheter Management Indwelling Urethral Catheter Cath placed during this visit: yes Reason for continuing: Acute urinary retention Insertion date: 11/07/18 Insertion time: 10:55 Results - Labs CBC & Chem 7: 11/23/18 07:49 11/23/18 07:49 Laboratory Results - last 24 hr 11/22/18 11/22/18 11/22/18 17:05 17:05 20:48 WBC RBC Hgb Hct MCV MCH MCHC RDW Plt Count MPV ESR 66 H PT 9.6 L INR 0.9 APTT 25.5 Sodium Potassium Chloride Carbon Dioxide Anion Gap BUN Creatinine Estimated GFR Random Glucose Calcium C-Reactive Protein 5.50 H 11/23/18 11/23/18 07:49 07:49 WBC 7.3 RBC 3.62 L Hgb 11.4 L Hct 33.5 L MCV 92.7 MCH 31.5 MCHC 34.0 RDW 13.1 Plt Count 378 MPV 8.6 ESR PT INR APTT Sodium 141 Potassium 4.4 Chloride 103 Carbon Dioxide 31.3 Anion Gap 7 BUN 13 Creatinine 0.81 Estimated GFR Greater than 89 Random Glucose 90 Calcium 9.2 C-Reactive Protein - Procedures s/p L4/5 laminectomies for decompression of cauda equina Assessment and Plan - Plan 58 years old male 11/18/2018 = continue with current care plan, monitor surgical wound daily for any worsening of erythema and swelling, continue Levaquin 11/19/2018 = patient had low-grade fever overnight, no improvement in appearance of wound, discontinue Levaquin, start vancomycin 11/20/2018 = no further fevers after switching from Levaquin to vancomycin, continue current care plan 11/21/2018 = pain medication adjusted up for better coverage, Dilaudid replacing morphine, imaging studies ordered 11/22/2018 = less pain today, erythema of lumbar wound persists, MRI of lumbar shows fluid collection, possible abscess Acute Cauda Equina Syndrome s/p L4/5 laminectomies for decompression of cauda equina 11/07/18 s/p Decadron Patient still has bilateral ankle stiffness, chronic development, will need rehab Continue Zanaflex, Neurontin, pain management Continue PT OT Post operative surgical site Abscess - lumbar spine MRI of lumbar spine shows collection of fluid within surgical wound, possible abscess Neurosurgery reconsulted to evaluate for wound infection Continue IV vancomycin- ESR, CRP elevated - for I and D today =- wound revision today - ff perioperative cultures Cervical stenosis Patient has severe cervical stenosis throughout cervical spine Symptomatic with neck stiffness, pain, left shoulder stiffness Discussed with physical therapy, exercises requested Neurosurgery was informed, evaluation requested Hemorrhoids Resolved Hydrocortisone 2.5 mg rectal cream, 3 times daily as needed Continue Preparation H as needed Hypocalcemia, hypophosphatemia Stable, monitor periodically with BMP Chronic hypothyroidism. Continue home medication.- synthroid DVT prophylaxis Bilateral SCDs Progress Note: Quality VTE Deep Vein Thrombosis/Pulmonary Embolism Present on Admission: No Discussed Condition With: patient
[2018-11-23] MEDS: Potassium Phosphate 500 MG Soluble Tablet PO SCH ×2 (12:36→20:25)
[2018-11-23] MEDS: Vancomycin Inj 1,000 MG in Sodium Chlor 0.9% Inj 250 ML IV.SIG SCH (12:36)
[2018-11-23] MEDS ORDERED: Lidocaine 1%/Epinephrine 1:100,000 Inj 20 ML Vial ONE (14:22)
[2018-11-23] MEDS ORDERED: Thrombin Topical Soln 5,000 UNIT Vial TOPICAL ONE (14:22)
[2018-11-23] MEDS ORDERED: fentaNYL Citrate Inj 250 MCG/5 ML Ampul ONE (14:25)
[2018-11-23] MEDS ORDERED: Bupivacaine PF 0.5% Inj 30 ML Vial ONE (14:49)
[2018-11-23] MEDS ORDERED: Glycopyrrolate Inj 1 MG/5 ML Syringe IV.PUSH ONE (15:36)
[2018-11-23] MEDS ORDERED: Neostigmine Inj 5 MG/5 ML Syringe IV.PUSH ONE (15:36)
[2018-11-23] MEDS ORDERED: Lidocaine PF 1% Inj 5 ML Syringe OTHER ONE (15:36)
[2018-11-23] MEDS ORDERED: Phenylephrine/NS 1000 MCG/10ML Syringe IV.PUSH ONE (15:36)
[2018-11-23] MEDS ORDERED: Esmolol Bolus Inj 100 MG/10 ML Vial IV.PUSH ONE (15:36)
[2018-11-23] MEDS ORDERED: ceFAZolin Inj 2 GM in Sodium Chlor 0.9% Inj 100 ML IV.SIG ONE (16:25)
[2018-11-23] MEDS: Gelatin Size 100 Topical Foam ONE ×2 (16:39→16:53)
[2018-11-23] MEDS ORDERED: *Meperidine Inj 25 MG/ML Vial PERIprocedural Use ONLY ONE (17:30)
[2018-11-23] MEDS ORDERED: *morphine SULFATE 10 MG/ML PERIprocedure ONLY ONE ×2 (17:34→17:55)
--- NOTE | 2018-11-23 17:34 | P.PCN ---
Date of procedure: 11/23/18 Pre-op diagnosis: lumbar wound infection Post-op diagnosis: same Procedure: L4-S1 wound infection, drainage, revision and washout Anesthesia: LUZMA Surgeon: Satinder Garcia Estimated blood loss (mL): 75 Pathology: other (Aerobic and anaerobic wound cultures sent)
[2018-11-23] MEDS ORDERED: *HYDROmorphone PF Inj 1 MG/ML Ampul PERIprocedural Use ONLY ONE (18:04)
[2018-11-23] MEDS: Temazepam 15 MG Capsule PO PRN (20:25)
[2018-11-24] MEDS: oxyCODONE/Acetaminophen 10/325 Tablet PO PRN ×6 (01:03→23:19)
[2018-11-24] MEDS: HYDROmorphone PF Inj 0.5 MG/0.5 ML Syringe IV.PUSH PRN ×5 (04:10→21:09)
[2018-11-24] MEDS: Heparin - SQ 10,000 UNITS/ML Vial SQ SCH ×3 (05:58→21:09)
[2018-11-24] MEDS: Levothyroxine 88 MCG Tablet PO SCH (06:40)
[2018-11-24] MEDS: Potassium Phosphate 500 MG Soluble Tablet PO SCH ×2 (08:32→21:08)
[2018-11-24] MEDS: Gabapentin 300 MG Capsule PO SCH ×4 (08:32→21:08)
--- NOTE | 2018-11-24 09:47 | P.PNIM ---
Subjective Interval history: awake and alert minimal back discomfort- post op site other than that up and ambulating, no incontinence, no fever, no chillls Physical Exam Vital signs: Vital Signs 11/23/18 11:58 11/23/18 17:25 11/23/18 17:30 Temperature 98.3 F 98.1 F Pulse Rate 60 70 80 Respiratory Rate 20 16 16 Blood Pressure 119/65 193/93 H 172/91 H Pulse Oximetry 96 99 96 11/23/18 17:45 11/23/18 18:00 11/23/18 21:01 Temperature 97.5 F L Pulse Rate 72 74 67 Respiratory Rate 16 16 20 Blood Pressure 135/84 131/79 129/72 Pulse Oximetry 96 96 95 11/24/18 01:32 11/24/18 05:29 11/24/18 08:00 Temperature 98.4 F 98.5 F 99.0 F Pulse Rate 75 78 71 Respiratory Rate 20 20 20 Blood Pressure 117/59 L 97/63 L 109/71 Pulse Oximetry 97 97 96 Intake & Output 11/23/18 11/24/18 11/24/18 18:59 06:59 18:59 Intake Total 1050 / 1050 240 / 240 Output Total 75 / 75 500 / 500 Balance 975 / 975 -260 / -260 Weight 74.2 kg Intake: IV 350 / 350 Vancomycin Inj 1,000 MG In NS 250 / 250 Inj 250 ML @ 250 mls/hr IV.SIG Q24H [facility] Rx#:[id number] Ancef Inj 2 GM In NS Inj 100 ML 100 / 100 @ 100 mls/hr IV.SIG ONCE ONE Rx#:[id number] Oral 240 / 240 Anesthesia Amount 700 / 700 Output: Urine 500 / 500 Estimated Blood Loss 75 / 75 Other: # Voids 3 Narrative: awake and anlert, no distress anicteric neck supple lungs- no rales regular rhythm abdomen soft back- post op site, no erythema, non tender, sutures intact extrmeiites no edema Urinary Catheter Management Indwelling Urethral Catheter: Cath placed during this visit: yes Reason for continuing: Acute urinary retention Insertion date: 11/07/18 Insertion time: 10:55 Results Labs CBC & Chem 7: 11/23/18 07:49 11/23/18 07:49 Procedures Procedures: s/p L4/5 laminectomies for decompression of cauda equina Assessment and Plan Plan 58 years old male 11/18/2018 = continue with current care plan, monitor surgical wound daily for any worsening of erythema and swelling, continue Levaquin 11/19/2018 = patient had low-grade fever overnight, no improvement in appearance of wound, discontinue Levaquin, start vancomycin 11/20/2018 = no further fevers after switching from Levaquin to vancomycin, continue current care plan 11/21/2018 = pain medication adjusted up for better coverage, Dilaudid replacing morphine, imaging studies ordered 11/22/2018 = less pain today, erythema of lumbar wound persists, MRI of lumbar shows fluid collection, possible abscess Acute Cauda Equina Syndrome s/p L4/5 laminectomies for decompression of cauda equina 11/07/18 s/p Decadron will need rehab Continue Zanaflex, Neurontin, pain management Continue PT OT- patient up and ambulating well with walker Post operative surgical site Abscess - lumbar spine S/P I and D , wound revision and washout 11/23 MRI of lumbar spine shows collection of fluid within surgical wound, possible abscess Neurosurgery ff Continue IV vancomycin- ESR, CRP elevated - ff perioperative cultures - pending Cervical stenosis Patient has severe cervical stenosis throughout cervical spine Symptomatic with neck stiffness, pain, left shoulder stiffness Discussed with physical therapy, exercises requested Neurosurgery was informed, evaluation requested Hemorrhoids Resolved Hydrocortisone 2.5 mg rectal cream, 3 times daily as needed Continue Preparation H as needed Hypocalcemia, hypophosphatemia Stable, monitor periodically with BMP Chronic hypothyroidism. Continue home medication.- synthroid DVT prophylaxis Bilateral SCDs early ambulation- has been getting out of bed Progress Note: Quality VTE Deep Vein Thrombosis/Pulmonary Embolism Present on Admission: No Progress Note: Quality VTE Deep Vein Thrombosis/Pulmonary Embolism Present on Admission: No
[2018-11-24] MEDS: Vancomycin Inj 1,000 MG in Sodium Chlor 0.9% Inj 250 ML IV.SIG SCH (12:32)
--- NOTE | 2018-11-24 12:56 | P.PNNS ---
Subjective Interval history: doing ok, reports of some serosanguineous drainage from wound overnight and bandages reinforced <Radha Gray - Last Filed: 11/24/18 12:50> Physical Exam Vital signs: Vital Signs 11/23/18 17:25 11/23/18 17:30 11/23/18 17:45 Temperature 98.1 F Pulse Rate 70 80 72 Respiratory Rate 16 16 16 Blood Pressure 193/93 H 172/91 H 135/84 Pulse Oximetry 99 96 96 11/23/18 18:00 11/23/18 21:01 11/24/18 01:32 Temperature 97.5 F L 98.4 F Pulse Rate 74 67 75 Respiratory Rate 16 20 20 Blood Pressure 131/79 129/72 117/59 L Pulse Oximetry 96 95 97 11/24/18 05:29 11/24/18 08:00 11/24/18 12:00 Temperature 98.5 F 99.0 F 98.6 F Pulse Rate 78 71 77 Respiratory Rate 20 20 20 Blood Pressure 97/63 L 109/71 108/56 L Pulse Oximetry 97 96 95 Intake & Output 11/23/18 11/24/18 11/24/18 18:59 06:59 18:59 Intake Total 1050 / 1050 240 / 240 Output Total 75 / 75 500 / 500 Balance 975 / 975 -260 / -260 Weight 74.2 kg Intake: IV 350 / 350 Vancomycin Inj 1,000 MG In NS 250 / 250 Inj 250 ML @ 250 mls/hr IV.SIG Q24H [facility] Rx#:[id number] Ancef Inj 2 GM In NS Inj 100 ML 100 / 100 @ 100 mls/hr IV.SIG ONCE ONE Rx#:[id number] Oral 240 / 240 Anesthesia Amount 700 / 700 Output: Urine 500 / 500 Estimated Blood Loss 75 / 75 Other: # Voids 3 Narrative: awake, alert sitting up in chair ambulating with rolling walker wound clean and dry, well approximated with sutures intact - Urinary Catheter Management Indwelling Urethral Catheter Cath placed during this visit: yes Reason for continuing: Acute urinary retention Insertion date: 11/07/18 Insertion time: 10:55 <Radha Gray - Last Filed: 11/24/18 12:50> Vital signs: Vital Signs 11/28/18 15:41 11/28/18 20:22 11/29/18 00:33 Temperature 97.9 F 97.9 F 98.3 F Pulse Rate 81 81 76 Respiratory Rate 18 20 20 Blood Pressure 133/60 125/61 119/56 L Pulse Oximetry 98 98 97 11/29/18 04:58 11/29/18 07:35 11/29/18 11:39 Temperature 98.2 F 97.4 F L 97.9 F Pulse Rate 63 58 L 72 Respiratory Rate 20 18 18 Blood Pressure 104/58 L 118/68 126/63 Pulse Oximetry 96 98 96 Intake & Output 11/28/18 11/29/18 11/29/18 18:59 06:59 18:59 Intake Total 1959 520 / 520 1240 / 1240 Output Total 1250 / 1250 Balance 1959 -730 / -730 1240 / 1240 Intake: IV 520 / 520 520 / 520 520 / 520 Vancomycin Inj 2,000 MG In NS 520 / 520 520 / 520 520 / 520 Inj 500 ML @ 250 mls/hr IV.SIG Q12H [facility] Rx#:[id number] Oral 1440 / 1440 720 / 720 Output: Urine 1250 / 1250 Other: # Voids 2 Date of Last Bowel Movement 11/25/18 11/28/18 11/28/18 # Bowel Movements 1 - Urinary Catheter Management Indwelling Urethral Catheter Cath placed during this visit: no <Satinder Garcia - Last Filed: 11/29/18 14:30> Assessment and Plan - Plan Mr. Almeida is a homeless gentleman who is a current user of methamphetamine and cocaine, last month presenting with 3 weeks of symptoms consistent with cauda equina syndrome and lumbar MRI reveals focal severe lumbar stenosis at L4/5. He underwent an L4-[address] Prajapati 11/07/18 The patient was doing well, with continued improvement until about a week ago when he developed a small wound leak and since then, he has had increasing LBP with minimal drainage from the apex of the incision Needs ESR and CRP NPO after MN for possible wound revision and washout Will follow 11/23/2018 in OR for L4-S1 wound infection, drainage, revision and washout with Dr. Garcia 11/24/2018 neuro stable, wound clean and dry, new bandages placed intraoperative cultures pending ID eval for wound infection cont PT, mobilize will follow <Radha Gray - Last Filed: 11/24/18 12:50> - Attending Attestation I have personally seen and examined the patient, reviewed pertinent labs and imaging studies. I agree with Ms. Gray's ( Neurosurgery PA), assessment as well as plan of care. <Satinder Garcia - Last Filed: 11/29/18 14:30>
--- NOTE | 2018-11-24 17:03 | MB ---
cc: Ramirez Marie MD DATE: 11/24/2018 REQUESTING PHYSICIAN: CHANEL Villar REASON FOR CONSULTATION: Lumbar wound infection. HISTORY OF PRESENT ILLNESS: This is a 58-year-old white male who was admitted to the hospital on 11/06/2018. He presented with back pain radiating to both legs and worsening bilateral lower extremity numbness. The patient was diagnosed with cauda equina syndrome. He underwent lumbar laminectomy of L4-L5 and decompression of cauda equina. He was noted to have severe lumbar stenosis. The patient developed swelling of the wound in the back and subsequently drainage. He was reevaluated and he underwent drainage and revision of the lumbar wound and cultures were taken. Cultures are pending. Procedure was performed on 09/22/2018. The patient notes that he has pain in the lower back and he has also pain in the left hip area, which he says he has had it for a very long time. He also complains of sharp pains in his left and right foot at the lateral aspects. The pain also is present at the left and right lateral tibias. He is afebrile. White blood cell count is normal. This consultation is requested for the wound of the back. PAST MEDICAL HISTORY: Hypothyroidism. ALLERGIES: ASPIRIN AND PENICILLIN. MEDICATIONS: 1. Vancomycin. 2. Zanaflex. 3. Restoril. 4. Potassium. 5. Percocet 10 p.r.n. 6. Dilaudid p.r.n. 7. Neurontin. 8. Zyrtec. SOCIAL HISTORY: No tobacco. Positive alcohol use, approximately 2-4 times a month. FAMILY HISTORY: Noncontributory. REVIEW OF SYSTEMS: CONSTITUTIONAL: Denies fever or chills. HEAD, EARS, EYES, NOSE AND THROAT: Denies visual blurring or diplopia. Denies difficulty swallowing or soreness of the throat. Denies neck pain or swelling. CARDIOVASCULAR: Denies palpitation or chest pain. RESPIRATORY: Denies cough or shortness of breath. GASTROINTESTINAL: Denies nausea, vomiting, abdominal pain or diarrhea. GENITOURINARY: Denies urgency or dysuria. HEMATOPOIETIC: Denies easy bruising or bleeding. INTEGUMENTARY: Denies skin rash or itching. ENDOCRINE: Denies polyuria or polydipsia. NEUROLOGIC: Reports pain at the distal lateral lower extremities and also has weakness of the left leg. PSYCHIATRIC: Denies depression or mood changes. PHYSICAL EXAMINATION: GENERAL: He is a well-developed male in no acute distress. He has discomfort from pain of the lower back. VITAL SIGNS: Temperature 98.6, BP 108/56, respirations 20, heart rate 77. HEENT: The head is atraumatic. Extraocular movements grossly intact. Pupils reactive to light. No icterus. Oropharynx has moist mucosa without lesions. No thrush. NECK: Supple without adenopathy. LUNGS: Clear breath sounds. HEART: Regular S1, S2, without murmurs, rubs or gallops. ABDOMEN: Bowel sounds present. Soft, no tenderness. BACK: The lower back has a surgical incision, which appears intact. Very minimal erythema in the area of the incision. There is mild swelling at the area around the incision. Mild increased warmth. RECTAL: Not performed. EXTREMITIES: No clubbing or cyanosis. There is mild swelling at the lateral distal right tibia, but no erythema visible in that location. Strength in both lower extremities is decreased. SKIN: No rash. NEUROLOGIC: No gross focal finding except for decreased strength in the lower extremities. PSYCHIATRIC: The patient is calm and cooperative. LABORATORY DATA: WBC 7.3, platelets 378, hemoglobin 11.4. Sedimentation rate 66. C-reactive protein 5.5. Creatinine 0.81. Estimated GFR greater than 89. IMPRESSION: Wound infection postoperative. The patient is status post lumbar laminectomy. Wound culture pending. RECOMMENDATIONS: 1. Continue vancomycin. 2. Follow the wound culture. 3. Antibiotic adjustments depending on the culture results since this very likely is an infected wound. Thank you for this consultation. MD MARIAH Dunlap/madalyn , 04:22 PM , 04:36 PM MANJINDER
[2018-11-24] MEDS: Temazepam 15 MG Capsule PO PRN (23:19)
[2018-11-25] MEDS: oxyCODONE/Acetaminophen 10/325 Tablet PO PRN ×5 (03:10→20:38)
[2018-11-25] MEDS: Levothyroxine 88 MCG Tablet PO SCH (06:03)
[2018-11-25] MEDS: Heparin - SQ 10,000 UNITS/ML Vial SQ SCH ×3 (06:06→21:56)
[2018-11-25] MEDS: Potassium Phosphate 500 MG Soluble Tablet PO SCH ×2 (08:22→20:39)
[2018-11-25] MEDS: Gabapentin 300 MG Capsule PO SCH ×4 (08:23→20:39)
[2018-11-25] MEDS: HYDROmorphone PF Inj 0.5 MG/0.5 ML Syringe IV.PUSH PRN ×3 (08:23→22:07)
--- NOTE | 2018-11-25 09:48 | P.PNIM ---
Subjective Interval history: awake and alert minimal pain back denies any incontnence, no constipation no chills t max 100.7 up and ambulating with a walker paresthesias LE- chronic more on the LE- lateral aspect Physical Exam Vital signs: Vital Signs 11/24/18 12:00 11/24/18 16:00 11/24/18 20:00 Temperature 98.6 F 98.7 F 100.0 F H Pulse Rate 77 77 84 Respiratory Rate 20 20 20 Blood Pressure 108/56 L 122/56 L 110/54 L Pulse Oximetry 95 98 95 11/25/18 00:00 11/25/18 04:00 11/25/18 04:11 Temperature 100.7 F H 98.1 F Pulse Rate 80 74 Respiratory Rate 20 20 18 Blood Pressure 155/55 H 121/64 Pulse Oximetry 94 L 96 11/25/18 08:00 Temperature 99.2 F Pulse Rate 72 Respiratory Rate 20 Blood Pressure 114/58 L Pulse Oximetry 96 Intake & Output 11/24/18 11/25/18 11/25/18 18:59 06:59 18:59 Intake Total 250 / 250 Output Total 1125 / 1125 Balance 250 / 250 -1125 / -1125 Intake: IV 250 / 250 Vancomycin Inj 1,000 MG In NS 250 / 250 Inj 250 ML @ 250 mls/hr IV.SIG Q24H [facility] Rx#:[id number] Output: Urine 1125 / 1125 Other: # Voids 3 Date of Last Bowel Movement 11/21/18 Narrative: awake and alert, oriented x3, no acute distress T max 100.7 anicteric neck supple lungs- clear regular rhythm abdomen soft LE- no calf tenderness sensory - some hypersensitivity left lateral aspect of the leg Back- post op surgical site- incision intact, radha in place, dry, some mild erythema and swelling around area on this am exam Left lower extremity weakness gait- ambulated with walker- difficulty lifting left leg, dragging left LE/foot when ambulating Urinary Catheter Management Indwelling Urethral Catheter: Cath placed during this visit: yes Reason for continuing: Acute urinary retention Insertion date: 11/07/18 Insertion time: 10:55 Results Labs CBC & Chem 7: 11/23/18 07:49 11/23/18 07:49 Labs: Microbiology 11/23/18 16:20 Other Fungal Smear - Final No fungal elements seen 11/23/18 16:20 Wound - Other Gram Stain - Final 11/23/18 16:20 Wound - Other Wound Culture - Preliminary No growth. Procedures Procedures: s/p L4/5 laminectomies for decompression of cauda equina Assessment and Plan Plan 58 years old male 11/18/2018 = continue with current care plan, monitor surgical wound daily for any worsening of erythema and swelling, continue Levaquin 11/19/2018 = patient had low-grade fever overnight, no improvement in appearance of wound, discontinue Levaquin, start vancomycin 11/20/2018 = no further fevers after switching from Levaquin to vancomycin, continue current care plan 11/21/2018 = pain medication adjusted up for better coverage, Dilaudid replacing morphine, imaging studies ordered 11/22/2018 = less pain today, erythema of lumbar wound persists, MRI of lumbar shows fluid collection, possible abscess Acute Cauda Equina Syndrome s/p L4/5 laminectomies for decompression of cauda equina 11/07/18 s/p Decadron will need rehab Continue Zanaflex, Neurontin, pain management Continue PT OT- patient up and ambulating with walker voiding and have good BM Post operative surgical site Abscess - lumbar spine S/P I and D , wound revision and washout 2/ Post op wound infection - some swelling and mild erythema around area, slightly tender, dry, sutures intact MRI of lumbar spine shows collection of fluid within surgical wound, possible abscess Neurosurgery ff Continue IV vancomycin- ESR, CRP elevated cultures- rare WBC, no browth, no fungal element AFB studies pending ID - Dr. Marie consulted and ff along with us Cervical stenosis Patient has severe cervical stenosis throughout cervical spine Symptomatic with neck stiffness, pain, left shoulder stiffness Discussed with physical therapy, exercises requested Neurosurgery was informed, evaluation requested Hemorrhoids Resolved Hydrocortisone 2.5 mg rectal cream, 3 times daily as needed Continue Preparation H as needed Hypocalcemia, hypophosphatemia Stable, monitor periodically with BMP Chronic hypothyroidism. Continue home medication.- synthroid DVT prophylaxis Bilateral SCDs early ambulation- has been getting out of bed Progress Note: Quality VTE Deep Vein Thrombosis/Pulmonary Embolism Present on Admission: No Progress Note: Quality VTE Deep Vein Thrombosis/Pulmonary Embolism Present on Admission: No
--- NOTE | 2018-11-25 10:29 | P.PNNS ---
Subjective Interval history: doing well, ambulating with walker, wound has been dry <Radha Gray - Last Filed: 11/26/18 12:16> Physical Exam Vital signs: Vital Signs 11/24/18 12:00 11/24/18 16:00 11/24/18 20:00 Temperature 98.6 F 98.7 F 100.0 F H Pulse Rate 77 77 84 Respiratory Rate 20 20 20 Blood Pressure 108/56 L 122/56 L 110/54 L Pulse Oximetry 95 98 95 11/25/18 00:00 11/25/18 04:00 11/25/18 04:11 Temperature 100.7 F H 98.1 F Pulse Rate 80 74 Respiratory Rate 20 20 18 Blood Pressure 155/55 H 121/64 Pulse Oximetry 94 L 96 11/25/18 08:00 Temperature 99.2 F Pulse Rate 72 Respiratory Rate 20 Blood Pressure 114/58 L Pulse Oximetry 96 Intake & Output 11/24/18 11/25/18 11/25/18 18:59 06:59 18:59 Intake Total 250 / 250 Output Total 1125 / 1125 Balance 250 / 250 -1125 / -1125 Intake: IV 250 / 250 Vancomycin Inj 1,000 MG In NS 250 / 250 Inj 250 ML @ 250 mls/hr IV.SIG Q24H [facility] Rx#:[id number] Output: Urine 1125 / 1125 Other: # Voids 3 Date of Last Bowel Movement 11/21/18 Narrative: awake, alert normal speech NAD ambulating with rolling walker wound clean and dry, well approximated with sutures intact - Urinary Catheter Management Indwelling Urethral Catheter Cath placed during this visit: yes Reason for continuing: Acute urinary retention Insertion date: 11/07/18 Insertion time: 10:55 <Radha Gray - Last Filed: 11/26/18 12:16> Vital signs: Vital Signs 11/28/18 15:41 11/28/18 20:22 11/29/18 00:33 Temperature 97.9 F 97.9 F 98.3 F Pulse Rate 81 81 76 Respiratory Rate 18 20 20 Blood Pressure 133/60 125/61 119/56 L Pulse Oximetry 98 98 97 11/29/18 04:58 11/29/18 07:35 11/29/18 11:39 Temperature 98.2 F 97.4 F L 97.9 F Pulse Rate 63 58 L 72 Respiratory Rate 20 18 18 Blood Pressure 104/58 L 118/68 126/63 Pulse Oximetry 96 98 96 Intake & Output 11/28/18 11/29/18 11/29/18 18:59 06:59 18:59 Intake Total 1959 520 / 520 1240 / 1240 Output Total 1250 / 1250 Balance 1959 -730 / -730 1240 / 1240 Intake: IV 520 / 520 520 / 520 520 / 520 Vancomycin Inj 2,000 MG In NS 520 / 520 520 / 520 520 / 520 Inj 500 ML @ 250 mls/hr IV.SIG Q12H [facility] Rx#:[id number] Oral 1440 / 1440 720 / 720 Output: Urine 1250 / 1250 Other: # Voids 2 Date of Last Bowel Movement 11/25/18 11/28/18 11/28/18 # Bowel Movements 1 - Urinary Catheter Management Indwelling Urethral Catheter Cath placed during this visit: no <Satinder Garcia - Last Filed: 11/29/18 14:45> Assessment and Plan - Plan Mr. Almeida is a homeless gentleman who is a current user of methamphetamine and cocaine, last month presenting with 3 weeks of symptoms consistent with cauda equina syndrome and lumbar MRI reveals focal severe lumbar stenosis at L4/5. He underwent an L4-[address] Prajapati 11/07/18 The patient was doing well, with continued improvement until about a week ago when he developed a small wound leak and since then, he has had increasing LBP with minimal drainage from the apex of the incision Needs ESR and CRP NPO after MN for possible wound revision and washout Will follow 11/23/2018 in OR for L4-S1 wound infection, drainage, revision and washout with Dr. Garcia 11/24/2018 neuro stable, wound clean and dry, new bandages placed intraoperative cultures pending ID eval for wound infection cont PT, mobilize will follow 11/25/2018 POD #2 s/p wound washout for infection wound clean and dry, area may be left open to air, sutures to be removed 2 weeks patient to follow up in the office in 1 month with follow up MRI L spine continue physical therapy and rehab efforts so far intraoperative wound cultures negative, defer antibiotic management per Infectious Disease, will sign off, please call if needed <Radha Gray - Last Filed: 11/26/18 12:16> - Attending Attestation Remains neurologically unchanged Pain better Dressing dry I have personally seen and examined the patient, reviewed pertinent labs and imaging studies. I agree with Ms. Gray's ( Neurosurgery PA), assessment as well as plan of care. <Satinder Garcia - Last Filed: 11/29/18 14:45>
[2018-11-25] MEDS: Vancomycin Inj 1,000 MG in Sodium Chlor 0.9% Inj 250 ML IV.SIG SCH (12:17)
--- NOTE | 2018-11-25 15:42 | P.PNID ---
Subjective Remarks: Patient notes that he has some soreness at the back. Complaints of pain in his legs. Low-grade fever. Temp of 100.7 earlier today. Wound culture has no growth in 48 hours. 58-year-old white male who was admitted to the hospital on 11/06/2018. He presented with back pain radiating to both legs and worsening bilateral lower extremity numbness. The patient was diagnosed with cauda equina syndrome. He underwent lumbar laminectomy of L4-L5 and decompression of cauda equina. He was noted to have severe lumbar stenosis. The patient developed swelling of the wound in the back and subsequently drainage. He was reevaluated and he underwent drainage and revision of the lumbar wound and cultures were taken. This consultation is requested for the wound of the back. Past Medical History: PAST MEDICAL HISTORY: Hypothyroidism. Allergies/Adverse Reactions: Allergies aspirin Allergy (Verified 11/06/18 21:04) Hives PCN Allergy (Severe, Uncoded 09/03/18 00:17) Cardiac Arrest Objective Vital Signs 11/24/18 16:00 11/24/18 20:00 11/25/18 00:00 Temperature 98.7 F 100.0 F H 100.7 F H Pulse Rate 77 84 80 Respiratory Rate 20 20 20 Blood Pressure 122/56 L 110/54 L 155/55 H Pulse Oximetry 98 95 94 L 11/25/18 04:00 11/25/18 04:11 11/25/18 08:00 Temperature 98.1 F 99.2 F Pulse Rate 74 72 Respiratory Rate 20 18 20 Blood Pressure 121/64 114/58 L Pulse Oximetry 96 96 11/25/18 12:00 Temperature 98.3 F Pulse Rate 80 Respiratory Rate 18 Blood Pressure 131/75 Pulse Oximetry 94 L Intake & Output 11/24/18 11/25/18 11/25/18 18:59 06:59 18:59 Intake Total 250 / 250 250 / 250 Output Total 1125 / 1125 Balance 250 / 250 -1125 / -1125 250 / 250 Intake: IV 250 / 250 250 / 250 Vancomycin Inj 1,000 MG In NS 250 / 250 250 / 250 Inj 250 ML @ 250 mls/hr IV.SIG Q24H LOKESH Rx#:[id number] Output: Urine 1125 / 1125 Other: # Voids 3 Date of Last Bowel Movement 11/21/18 11/25/18 11/23/18 16:20 Other Acid Fast Bacilli Smear - Final No acid fast bacilli seen 11/23/18 16:20 Other Mycobacterial Culture - Pending 11/23/18 16:20 Wound - Other Gram Stain - Final 11/23/18 16:20 Wound - Other Wound Culture - Preliminary No growth in 48 hours 11/23/18 16:20 Other Fungal Smear - Final No fungal elements seen 11/23/18 16:20 Other Fungal Culture - Pending Imaging: ITS Impressions Lumbar Spine X-Ray 11/07/18 00:00 CONCLUSION: Probe at L4-5 Chest X-Ray 11/07/18 09:00 CONCLUSION: No evidence of acute cardiopulmonary disease. Cervical Spine MRI 11/21/18 00:00 CONCLUSION: 1. Severe degenerative changes identified throughout the cervical spine with multiple levels of retrolisthesis as noted above. There is narrowing of the spinal canal seen from C3 through the superior endplate of C7 with focal air or compression at the level of C5/C6. Multiple levels of severe neuroforaminal stenosis. Lumbar Spine MRI 11/21/18 00:00 CONCLUSION: 1. There are extensive postsurgical changes consistent with laminectomy and discectomy at L4-5. There is a fluid collection evident within the operative bed extending to the skin surface. There is extensive contrast enhancement around this. This is concerning for abscess. This is described in detail above. Physical Exam: PHYSICAL EXAMINATION: GENERAL: Patient is awake and alert. Trying to ambulate with a walker. HEENT: Extraocular movements grossly intact. Pupils reactive to light. No icterus. Oropharynx has moist mucosa without lesions. No thrush. NECK: Supple without adenopathy. LUNGS: Clear breath sounds. HEART: Regular S1, S2, without murmurs, rubs or gallops. BACK: The lower back has a surgical incision appears intact. Very minimal erythema in the area of the incision. There is mild swelling at the area around the incision. Mild increased warmth. EXTREMITIES: No clubbing or cyanosis. There is mild swelling at the lateral distal right tibia, but no erythema visible in that location. Strength in both lower extremities is decreased. SKIN: No rash. NEUROLOGIC: No gross focal finding except for decreased strength in the lower extremities. PSYCHIATRIC: Calm and cooperative. Assessment and Plan - Plan IMPRESSION: Wound infection postoperative. The patient is status post lumbar laminectomy. Wound culture pending. Culture is negative at 48 hours. I am concerned that he may be harboring infection despite the culture being negative. He continues to have low-grade fever. RECOMMENDATIONS: 1. Continue the vancomycin x 2 weeks or alternative antibiotic if the culture has bacteria that may indicate different antibiotic is necessary. 2. Follow the wound culture. 3. Monitor the temperature. 4. Antibiotic adjustments depending on the culture results since this very likely is an infected wound. And given his elevated C-reactive protein and recent surgery I think it is appropriate to continue him on antibiotics. Patient is only on 1 gm of vancomycin daily which may be subtherapeutic. I will request pharmacy adjustment of vancomycin.
[2018-11-25] MEDS ORDERED: Vancomycin Consult Pharmacy 1 EACH OTHER SCH (15:45)
[2018-11-25] MEDS: Temazepam 15 MG Capsule PO PRN (20:38)
[2018-11-25] MEDS: Vancomycin Inj 1,500 MG in Sodium Chlor 0.9% Inj 500 ML IV.SIG SCH (23:36)
[2018-11-26] MEDS: oxyCODONE/Acetaminophen 10/325 Tablet PO PRN ×6 (00:49→22:20)
[2018-11-26] MEDS: HYDROmorphone PF Inj 0.5 MG/0.5 ML Syringe IV.PUSH PRN ×5 (02:43→20:58)
[2018-11-26] MEDS: Heparin - SQ 10,000 UNITS/ML Vial SQ SCH ×3 (05:00→21:02)
[2018-11-26] MEDS: Levothyroxine 88 MCG Tablet PO SCH (05:00)
[2018-11-26] MEDS: Potassium Phosphate 500 MG Soluble Tablet PO SCH ×2 (10:12→20:59)
[2018-11-26] MEDS: Gabapentin 300 MG Capsule PO SCH ×4 (10:12→18:04)
[2018-11-26] MEDS: Vancomycin Inj 1,500 MG in Sodium Chlor 0.9% Inj 500 ML IV.SIG SCH (12:10)
--- NOTE | 2018-11-26 12:10 | P.PNIM ---
Subjective Interval history: doing great afebrile good po no diarrhea complains of burning pain both legs right more worse in the morning- Gabapentin helps up and ambulating no back pain Physical Exam Vital signs: Vital Signs 11/25/18 16:00 11/25/18 18:34 11/25/18 20:18 Temperature 98.9 F 97.7 F Pulse Rate 77 80 Respiratory Rate 20 9 L 18 Blood Pressure 115/60 110/65 Pulse Oximetry 97 97 11/26/18 00:45 11/26/18 04:35 11/26/18 08:00 Temperature 98.4 F 98.4 F 97.9 F Pulse Rate 77 71 69 Respiratory Rate 18 18 22 Blood Pressure 138/68 114/60 117/55 L Pulse Oximetry 95 97 96 11/26/18 09:35 Temperature Pulse Rate Respiratory Rate 20 Blood Pressure Pulse Oximetry Intake & Output 11/25/18 11/26/18 11/26/18 18:59 06:59 18:59 Intake Total 250 / 250 615 / 615 Output Total 2250 / 2250 Balance 250 / 250 -1635 / -1635 Intake: IV 250 / 250 615 / 615 Vancomycin Inj 1,000 MG In NS 250 / 250 Inj 250 ML @ 250 mls/hr IV.SIG Q24H [facility]OKESH Rx#:[id number] Vancomycin Inj 1,500 MG In NS 515 / 515 Inj 500 ML @ 250 mls/hr IV.SIG Q12H [facility]OKESH Rx#:[id number] Vancomycin Inj 500 MG In NS Inj 100 / 100 100 ML @ 200 mls/hr IV.SIG ONCE ONE Rx#:[id number] Output: Urine 2250 / 2250 Other: Date of Last Bowel Movement 11/25/18 11/25/18 Narrative: no acute distress anicteric lungs- clear regular rhythm abdomen soft back- [address]- site dry, no erythema no fluctuance ore tenderness extrmeies no edmea strength equal Urinary Catheter Management Indwelling Urethral Catheter: Cath placed during this visit: yes Reason for continuing: Acute urinary retention Insertion date: 11/07/18 Insertion time: 10:55 Results Labs CBC & Chem 7: 11/23/18 07:49 11/23/18 07:49 Labs: Microbiology 11/23/18 16:20 Wound - Other Gram Stain - Final 11/23/18 16:20 Wound - Other Wound Culture - Final No growth in 72 hours (aerobically and anaerobically ) 11/23/18 16:20 Other Acid Fast Bacilli Smear - Final No acid fast bacilli seen Procedures Procedures: s/p L4/5 laminectomies for decompression of cauda equina Assessment and Plan Plan 58 years old male 11/18/2018 = continue with current care plan, monitor surgical wound daily for any worsening of erythema and swelling, continue Levaquin 11/19/2018 = patient had low-grade fever overnight, no improvement in appearance of wound, discontinue Levaquin, start vancomycin 11/20/2018 = no further fevers after switching from Levaquin to vancomycin, continue current care plan 11/21/2018 = pain medication adjusted up for better coverage, Dilaudid replacing morphine, imaging studies ordered 11/22/2018 = less pain today, erythema of lumbar wound persists, MRI of lumbar shows fluid collection, possible abscess Acute Cauda Equina Syndrome s/p L4/5 laminectomies for decompression of cauda equina 11/07/18 s/p Decadron will need rehab Continue Zanaflex, Neurontin, pain management Continue PT OT- patient up and ambulating with walker voiding and have good BM will increae gabapentin dose to 600 mg tid Post operative surgical site Abscess - lumbar spine S/P I and D , wound revision and washout 11/23 Post op wound infection - some swelling and mild erythema around area, slightly tender, dry, sutures intact MRI of lumbar spine shows collection of fluid within surgical wound, possible abscess Neurosurgery ff Continue IV vancomycin q 12 - ESR, CRP elevated cultures- rare WBC, no browth, no fungal element AFB studies negative final cultures no growth ID - Dr. Marie consulted and ff along with us Cervical stenosis Patient has severe cervical stenosis throughout cervical spine Symptomatic with neck stiffness, pain, left shoulder stiffness Discussed with physical therapy, exercises requested Neurosurgery was informed, evaluation requested Hemorrhoids Resolved Hydrocortisone 2.5 mg rectal cream, 3 times daily as needed Continue Preparation H as needed Hypocalcemia, hypophosphatemia Stable, monitor periodically with BMP Chronic hypothyroidism. Continue home medication.- synthroid DVT prophylaxis Bilateral SCDs ambulation- has been getting out of bed Progress Note: Quality VTE Deep Vein Thrombosis/Pulmonary Embolism Present on Admission: No Progress Note: Quality VTE Deep Vein Thrombosis/Pulmonary Embolism Present on Admission: No
--- NOTE | 2018-11-26 12:37 | P.PNID ---
Subjective Remarks: Patient notes that he has some soreness at the back. Complaints of pain in his legs. Temperature has improved. Afebrile. Wound culture has no growth. 58-year-old white male who was admitted to the hospital on 11/06/2018. He presented with back pain radiating to both legs and worsening bilateral lower extremity numbness. The patient was diagnosed with cauda equina syndrome. He underwent lumbar laminectomy of L4-L5 and decompression of cauda equina. He was noted to have severe lumbar stenosis. The patient developed swelling of the wound in the back and subsequently drainage. He was reevaluated and he underwent drainage and revision of the lumbar wound and cultures were taken. This consultation is requested for the wound of the back. Past Medical History: PAST MEDICAL HISTORY: Hypothyroidism. Allergies/Adverse Reactions: Allergies aspirin Allergy (Verified 11/06/18 21:04) Hives PCN Allergy (Severe, Uncoded 09/03/18 00:17) Cardiac Arrest Objective Vital Signs 11/25/18 16:00 11/25/18 18:34 11/25/18 20:18 Temperature 98.9 F 97.7 F Pulse Rate 77 80 Respiratory Rate 20 9 L 18 Blood Pressure 115/60 110/65 Pulse Oximetry 97 97 11/26/18 00:45 11/26/18 04:35 11/26/18 08:00 Temperature 98.4 F 98.4 F 97.9 F Pulse Rate 77 71 69 Respiratory Rate 18 18 22 Blood Pressure 138/68 114/60 117/55 L Pulse Oximetry 95 97 96 11/26/18 09:35 Temperature Pulse Rate Respiratory Rate 20 Blood Pressure Pulse Oximetry Intake & Output 11/25/18 11/26/18 11/26/18 18:59 06:59 18:59 Intake Total 250 / 250 615 / 615 Output Total 2250 / 2250 Balance 250 / 250 -1635 / -1635 Intake: IV 250 / 250 615 / 615 Vancomycin Inj 1,000 MG In NS 250 / 250 Inj 250 ML @ 250 mls/hr IV.SIG Q24H [facility]ESH Rx#:[id number] Vancomycin Inj 1,500 MG In NS 515 / 515 Inj 500 ML @ 250 mls/hr IV.SIG Q12H [facility] Rx#:[id number] Vancomycin Inj 500 MG In NS Inj 100 / 100 100 ML @ 200 mls/hr IV.SIG ONCE ONE Rx#:[id number] Output: Urine 2250 / 2250 Other: Date of Last Bowel Movement 11/25/18 11/25/18 11/23/18 16:20 Wound - Other Gram Stain - Final 11/23/18 16:20 Wound - Other Wound Culture - Final No growth in 72 hours (aerobically and anaerobically ) 11/23/18 16:20 Other Acid Fast Bacilli Smear - Final No acid fast bacilli seen 11/23/18 16:20 Other Mycobacterial Culture - Pending 11/23/18 16:20 Other Fungal Smear - Final No fungal elements seen 11/23/18 16:20 Other Fungal Culture - Pending Imaging: ITS Impressions Lumbar Spine X-Ray 11/07/18 00:00 CONCLUSION: Probe at L4-5 Chest X-Ray 11/07/18 09:00 CONCLUSION: No evidence of acute cardiopulmonary disease. Cervical Spine MRI 11/21/18 00:00 CONCLUSION: 1. Severe degenerative changes identified throughout the cervical spine with multiple levels of retrolisthesis as noted above. There is narrowing of the spinal canal seen from C3 through the superior endplate of C7 with focal air or compression at the level of C5/C6. Multiple levels of severe neuroforaminal stenosis. Lumbar Spine MRI 11/21/18 00:00 CONCLUSION: 1. There are extensive postsurgical changes consistent with laminectomy and discectomy at L4-5. There is a fluid collection evident within the operative bed extending to the skin surface. There is extensive contrast enhancement around this. This is concerning for abscess. This is described in detail above. Physical Exam: PHYSICAL EXAMINATION: GENERAL: Patient is awake and alert. Trying to ambulate with a walker. HEENT: Extraocular movements grossly intact. Pupils reactive to light. No icterus. Oropharynx has moist mucosa without lesions. No thrush. NECK: Supple without adenopathy. LUNGS: Clear breath sounds. HEART: Regular S1, S2, without murmurs, rubs or gallops. BACK: The lower back has a surgical incision which appears intact. Erythema has improved. Swelling is decreased. EXTREMITIES: No clubbing or cyanosis. There is mild swelling at the lateral distal right tibia without erythema visible in that location. Strength in both lower extremities is decreased. SKIN: No rash. NEUROLOGIC: No gross focal finding except for decreased strength in the lower extremities. PSYCHIATRIC: Calm and cooperative. Assessment and Plan - Plan IMPRESSION: Wound infection postoperative. The patient is status post lumbar laminectomy. Postop fluid collection was drained by neurosurgery. Culture is negative. I am concerned that he may be harboring infection despite the culture being negative. He had low-grade fever which has improved. RECOMMENDATIONS: 1. Continue the vancomycin x 2 weeks until 12/07/2018, or alternative antibiotic if the culture has bacteria that may indicate different antibiotic is necessary. 2. Reculture the wound if drainage recurs. 3. Monitor the temperature. 4. Continue the vancomycin dosing as per pharmacy until he is ready for discharge. Patient has no stable residence currently.
[2018-11-26] MEDS: Temazepam 15 MG Capsule PO PRN (22:20)
[2018-11-26] MEDS ORDERED: Pharmacy Ordered Lab Info OTHER ONE (23:45)
[2018-11-27] MEDS: HYDROmorphone PF Inj 0.5 MG/0.5 ML Syringe IV.PUSH PRN ×6 (00:45→22:03)
[2018-11-27] MEDS: Vancomycin Inj 1,500 MG in Sodium Chlor 0.9% Inj 500 ML IV.SIG SCH ×2 (00:47→03:53)
[2018-11-27] MEDS: oxyCODONE/Acetaminophen 10/325 Tablet PO PRN ×6 (02:26→23:07)
[2018-11-27] MEDS: Levothyroxine 88 MCG Tablet PO SCH ×2 (04:57→07:57)
[2018-11-27] MEDS: Heparin - SQ 10,000 UNITS/ML Vial SQ SCH ×3 (07:56→22:59)
[2018-11-27] MEDS: Gabapentin 300 MG Capsule PO SCH ×3 (09:13→17:45)
[2018-11-27] MEDS: Potassium Phosphate 500 MG Soluble Tablet PO SCH ×2 (09:13→20:27)
--- NOTE | 2018-11-27 11:18 | P.PNIM ---
Subjective Interval history: no complains up and ambulating good po pain controlled Physical Exam Vital signs: Vital Signs 11/26/18 12:00 11/26/18 15:02 11/26/18 16:00 Temperature 97.9 F 98.0 F Pulse Rate 81 67 Respiratory Rate 22 20 20 Blood Pressure 102/50 L 106/55 L Pulse Oximetry 90 L 98 11/26/18 16:48 11/26/18 19:25 11/26/18 20:58 Temperature 98.4 F Pulse Rate 77 Respiratory Rate 15 16 20 Blood Pressure 129/68 Pulse Oximetry 97 11/27/18 00:09 11/27/18 03:45 11/27/18 05:21 Temperature 97.4 F L 98.0 F Pulse Rate 67 71 Respiratory Rate 20 16 20 Blood Pressure 101/52 L 123/77 Pulse Oximetry 96 97 11/27/18 07:49 Temperature 97.9 F Pulse Rate 69 Respiratory Rate 18 Blood Pressure 110/50 L Pulse Oximetry 97 Intake & Output 11/26/18 11/27/18 11/27/18 18:59 06:59 18:59 Intake Total 1265 / 1265 240 / 240 Output Total 1200 / 1200 Balance 65 / 65 240 / 240 Intake: IV 515 / 515 Vancomycin Inj 1,500 MG In NS 515 / 515 Inj 500 ML @ 250 mls/hr IV.SIG Q12H [facility]OK[facility] Rx#:[id number] Oral 750 / 750 240 / 240 Output: Urine 1200 / 1200 Other: # Voids 3 1 # Bowel Movements 0 Narrative: awake and no distress anciteric lung clear regular rhythm abdomen -soft, nontedner back- stictches in place, very mild erythema, dry extrmeies no edema Urinary Catheter Management Indwelling Urethral Catheter: Cath placed during this visit: yes Reason for continuing: Acute urinary retention Insertion date: 11/07/18 Insertion time: 10:55 Results Labs CBC & Chem 7: 11/23/18 07:49 11/23/18 07:49 Labs: Microbiology 11/23/18 16:20 Wound - Other Gram Stain - Final 11/23/18 16:20 Wound - Other Wound Culture - Final No growth in 72 hours (aerobically and anaerobically ) Procedures Procedures: s/p L4/5 laminectomies for decompression of cauda equina Assessment and Plan Plan 58 years old male 11/18/2018 = continue with current care plan, monitor surgical wound daily for any worsening of erythema and swelling, continue Levaquin 11/19/2018 = patient had low-grade fever overnight, no improvement in appearance of wound, discontinue Levaquin, start vancomycin 11/20/2018 = no further fevers after switching from Levaquin to vancomycin, continue current care plan 11/21/2018 = pain medication adjusted up for better coverage, Dilaudid replacing morphine, imaging studies ordered 11/22/2018 = less pain today, erythema of lumbar wound persists, MRI of lumbar shows fluid collection, possible abscess Acute Cauda Equina Syndrome s/p L4/5 laminectomies for decompression of cauda equina 11/07/18 s/p Decadron will need rehab Continue Zanaflex, Neurontin, pain management Continue PT OT- patient up and ambulating with walker voiding and have good BM will increae gabapentin dose to 600 mg tid Post operative surgical site Abscess - lumbar spine S/P I and D , wound revision and washout 11/23 Post op wound infection - some swelling and mild erythema around area, slightly tender, dry, sutures intact MRI of lumbar spine shows collection of fluid within surgical wound, possible abscess Neurosurgery ff Continue IV vancomycin q 12 - ESR, CRP elevated cultures- rare WBC, no browth, no fungal element AFB studies negative final cultures no growth ID - Dr. Marie ff along with us - tentative stop date 12/07 Cervical stenosis Patient has severe cervical stenosis throughout cervical spine Symptomatic with neck stiffness, pain, left shoulder stiffness Discussed with physical therapy, exercises requested Neurosurgery was informed, evaluation requested Hemorrhoids Resolved Hydrocortisone 2.5 mg rectal cream, 3 times daily as needed Continue Preparation H as needed Hypocalcemia, hypophosphatemia Stable, monitor periodically with BMP Chronic hypothyroidism. Continue home medication.- synthroid DVT prophylaxis Bilateral SCDs ambulation- has been getting out of bed Progress Note: Quality VTE Deep Vein Thrombosis/Pulmonary Embolism Present on Admission: No Progress Note: Quality VTE Deep Vein Thrombosis/Pulmonary Embolism Present on Admission: No
[2018-11-27] MEDS: Vancomycin Inj 2,000 MG in Sodium Chlor 0.9% Inj 500 ML IV.SIG SCH ×2 (13:19→23:11)
[2018-11-28] MEDS: Temazepam 15 MG Capsule PO PRN (00:53)
[2018-11-28] MEDS: Levothyroxine 88 MCG Tablet PO SCH (06:34)
[2018-11-28] MEDS: oxyCODONE/Acetaminophen 10/325 Tablet PO PRN ×4 (06:34→23:27)
[2018-11-28] MEDS: Heparin - SQ 10,000 UNITS/ML Vial SQ SCH ×3 (06:57→21:06)
[2018-11-28 08:35] LABS: Glomerular Filtration Rate Greater Than 89 mL/min (>89)
[2018-11-28] MEDS: Gabapentin 300 MG Capsule PO SCH ×3 (08:38→17:49)
[2018-11-28] MEDS: Potassium Phosphate 500 MG Soluble Tablet PO SCH ×2 (08:38→20:29)
[2018-11-28] MEDS: HYDROmorphone PF Inj 0.5 MG/0.5 ML Syringe IV.PUSH PRN ×3 (10:04→20:29)
--- NOTE | 2018-11-28 13:07 | P.PNIM ---
Subjective Interval history: awake and alert, afebrile up and ambulating with a walker no incontinence Physical Exam Vital signs: Vital Signs 11/27/18 16:00 11/27/18 20:55 11/28/18 00:36 Temperature 97.4 F L 97.8 F 98.3 F Pulse Rate 73 75 69 Respiratory Rate 20 20 20 Blood Pressure 126/60 138/62 102/53 L Pulse Oximetry 94 L 95 96 11/28/18 04:11 11/28/18 07:32 11/28/18 11:26 Temperature 98.2 F 98.4 F 97.8 F Pulse Rate 61 61 84 Respiratory Rate 20 18 18 Blood Pressure 137/69 112/54 L 112/56 L Pulse Oximetry 97 93 L 96 Intake & Output 11/27/18 11/28/18 11/28/18 18:59 06:59 18:59 Intake Total 1000 / 1000 110 / 110 1200 / 1200 Balance 1000 / 1000 110 / 110 1200 / 1200 Intake: IV 520 / 520 110 / 110 Vancomycin Inj 2,000 MG In NS 520 / 520 110 / 110 Inj 500 ML @ 250 mls/hr IV.SIG Q12H [facility]ESH Rx#:[id number] Oral 480 / 480 1200 / 1200 Other: # Voids 1 3 Date of Last Bowel Movement 11/25/18 Narrative: afebri;e anciteric lungs- clear regular rhythm back- sutures in place, no fluctuance, no erythema, dry extremites no edema Urinary Catheter Management Indwelling Urethral Catheter: Cath placed during this visit: yes Reason for continuing: Acute urinary retention Insertion date: 11/07/18 Insertion time: 10:55 Results Labs CBC & Chem 7: 11/23/18 07:49 11/28/18 07:53 Procedures Procedures: s/p L4/5 laminectomies for decompression of cauda equina Assessment and Plan Plan 58 years old male 11/18/2018 = continue with current care plan, monitor surgical wound daily for any worsening of erythema and swelling, continue Levaquin 11/19/2018 = patient had low-grade fever overnight, no improvement in appearance of wound, discontinue Levaquin, start vancomycin 11/20/2018 = no further fevers after switching from Levaquin to vancomycin, continue current care plan 11/21/2018 = pain medication adjusted up for better coverage, Dilaudid replacing morphine, imaging studies ordered 11/22/2018 = less pain today, erythema of lumbar wound persists, MRI of lumbar shows fluid collection, possible abscess Acute Cauda Equina Syndrome s/p L4/5 laminectomies for decompression of cauda equina 11/07/18 s/p Decadron will need rehab Continue Zanaflex, Neurontin, pain management Continue PT OT- patient up and ambulating with walker voiding and have good BM gabapentin dose to 600 mg tid Post operative surgical site Abscess - lumbar spine S/P I and D , wound revision and washout 11/23 Post op wound infection - some swelling and mild erythema around area, slightly tender, dry, sutures intact MRI of lumbar spine shows collection of fluid within surgical wound, possible abscess Neurosurgery ff Continue IV vancomycin q 12 - ESR, CRP elevated cultures- rare WBC, no browth, no fungal element AFB studies negative final cultures no growth ID - Dr. Marie ff along with us - tentative stop date 12/07 will ask nurse to inquire - date for suture removal Cervical stenosis Patient has severe cervical stenosis throughout cervical spine Symptomatic with neck stiffness, pain, left shoulder stiffness Discussed with physical therapy, exercises requested Neurosurgery was informed, evaluation requested Hemorrhoids Resolved Hydrocortisone 2.5 mg rectal cream, 3 times daily as needed Continue Preparation H as needed Hypocalcemia, hypophosphatemia Stable, monitor periodically with BMP Chronic hypothyroidism. Continue home medication.- synthroid DVT prophylaxis Bilateral SCDs ambulation- has been getting out of bed Progress Note: Quality VTE Deep Vein Thrombosis/Pulmonary Embolism Present on Admission: No Progress Note: Quality VTE Deep Vein Thrombosis/Pulmonary Embolism Present on Admission: No
[2018-11-28] MEDS: Vancomycin Inj 2,000 MG in Sodium Chlor 0.9% Inj 500 ML IV.SIG SCH ×2 (13:09→23:39)
[2018-11-28] MEDS ORDERED: Pharmacy Ordered Lab Info OTHER ONE (23:45)
[2018-11-29] MEDS: HYDROmorphone PF Inj 0.5 MG/0.5 ML Syringe IV.PUSH PRN ×6 (00:19→21:59)
[2018-11-29] MEDS: Temazepam 15 MG Capsule PO PRN ×2 (00:22→20:32)
[2018-11-29] MEDS: oxyCODONE/Acetaminophen 10/325 Tablet PO PRN ×5 (03:23→20:30)
[2018-11-29] MEDS: Levothyroxine 88 MCG Tablet PO SCH (05:47)
[2018-11-29] MEDS: Heparin - SQ 10,000 UNITS/ML Vial SQ SCH ×3 (05:47→22:06)
[2018-11-29] MEDS: Gabapentin 300 MG Capsule PO SCH ×3 (08:31→17:12)
[2018-11-29] MEDS: Potassium Phosphate 500 MG Soluble Tablet PO SCH ×2 (08:31→22:05)
--- NOTE | 2018-11-29 10:41 | P.PNIM ---
Subjective Interval history: doing very well no fever no incontinence Physical Exam Vital signs: Vital Signs 11/28/18 11:26 11/28/18 15:41 11/28/18 20:22 Temperature 97.8 F 97.9 F 97.9 F Pulse Rate 84 81 81 Respiratory Rate 18 18 20 Blood Pressure 112/56 L 133/60 125/61 Pulse Oximetry 96 98 98 11/29/18 00:33 11/29/18 04:58 11/29/18 07:35 Temperature 98.3 F 98.2 F 97.4 F L Pulse Rate 76 63 58 L Respiratory Rate 20 20 18 Blood Pressure 119/56 L 104/58 L 118/68 Pulse Oximetry 97 96 98 Intake & Output 11/28/18 11/29/18 11/29/18 18:59 06:59 18:59 Intake Total 1959 520 / 520 Output Total 1250 / 1250 Balance 1959 -730 / -730 Intake: IV 520 / 520 520 / 520 Vancomycin Inj 2,000 MG In NS 520 / 520 520 / 520 Inj 500 ML @ 250 mls/hr IV.SIG Q12H [facility] Rx#:[id number] Oral 1440 / 1440 Output: Urine 1250 / 1250 Other: # Voids 2 Date of Last Bowel Movement 11/25/18 11/28/18 Narrative: awake carol lert anicteric lungs- clear back- sutures in place- no erythema , dry extrmeites no edema Urinary Catheter Management Indwelling Urethral Catheter: Cath placed during this visit: yes Reason for continuing: Acute urinary retention Insertion date: 11/07/18 Insertion time: 10:55 Results Labs CBC & Chem 7: 11/23/18 07:49 11/28/18 07:53 Procedures Procedures: s/p L4/5 laminectomies for decompression of cauda equina Assessment and Plan Plan 58 years old male 11/18/2018 = continue with current care plan, monitor surgical wound daily for any worsening of erythema and swelling, continue Levaquin 11/19/2018 = patient had low-grade fever overnight, no improvement in appearance of wound, discontinue Levaquin, start vancomycin 11/20/2018 = no further fevers after switching from Levaquin to vancomycin, continue current care plan 11/21/2018 = pain medication adjusted up for better coverage, Dilaudid replacing morphine, imaging studies ordered 11/22/2018 = less pain today, erythema of lumbar wound persists, MRI of lumbar shows fluid collection, possible abscess Acute Cauda Equina Syndrome s/p L4/5 laminectomies for decompression of cauda equina 11/07/18 s/p Decadron Continue Zanaflex, Neurontin, pain management Continue PT OT- patient up and ambulating with walker voiding and have good BM gabapentin 600 mg tid Post operative surgical site Abscess - lumbar spine S/P I and D , wound revision and washout 11/23 Post op wound infection - some swelling and mild erythema around area, slightly tender, dry, sutures intact MRI of lumbar spine shows collection of fluid within surgical wound, possible abscess Neurosurgery ff Continue IV vancomycin q 12 - ESR, CRP elevated cultures- rare WBC, no browth, no fungal element AFB studies negative final cultures no growth ID - Dr. Marie ff along with us - tentative stop date 12/07 patient currently has no home- ?PICC candidate will discuss at [facility]- with CM suture removal 2 weeks from surgery - around 12/06- Cervical stenosis Patient has severe cervical stenosis throughout cervical spine Symptomatic with neck stiffness, pain, left shoulder stiffness Discussed with physical therapy, exercises requested Neurosurgery was informed, evaluation requested Hemorrhoids Resolved Hydrocortisone 2.5 mg rectal cream, 3 times daily as needed Continue Preparation H as needed Hypocalcemia, hypophosphatemia Stable, monitor periodically with BMP Chronic hypothyroidism. Continue home medication.- synthroid DVT prophylaxis Bilateral SCDs ambulation- has been getting out of bed Progress Note: Quality VTE Deep Vein Thrombosis/Pulmonary Embolism Present on Admission: No Progress Note: Quality VTE Deep Vein Thrombosis/Pulmonary Embolism Present on Admission: No
[2018-11-29] MEDS: Vancomycin Inj 2,000 MG in Sodium Chlor 0.9% Inj 500 ML IV.SIG SCH (12:45)
[2018-11-29] MEDS ORDERED: Pharmacy Ordered Lab Info OTHER ONE (23:45)
[2018-11-30] MEDS: oxyCODONE/Acetaminophen 10/325 Tablet PO PRN ×5 (00:38→22:37)
[2018-11-30] MEDS: Vancomycin Inj 2,000 MG in Sodium Chlor 0.9% Inj 500 ML IV.SIG SCH ×2 (02:00→13:04)
[2018-11-30] MEDS: HYDROmorphone PF Inj 0.5 MG/0.5 ML Syringe IV.PUSH PRN ×3 (04:08→17:29)
[2018-11-30] MEDS: Levothyroxine 88 MCG Tablet PO SCH (06:04)
[2018-11-30] MEDS: Heparin - SQ 10,000 UNITS/ML Vial SQ SCH ×3 (06:04→22:36)
[2018-11-30] MEDS: Potassium Phosphate 500 MG Soluble Tablet PO SCH ×2 (08:19→23:18)
[2018-11-30] MEDS: Gabapentin 300 MG Capsule PO SCH ×3 (08:20→17:29)
[2018-11-30 08:48] LABS: Glomerular Filtration Rate Greater Than 89 mL/min (>89)
--- NOTE | 2018-11-30 18:22 | P.PNIM ---
Subjective Interval history: Follow-up for acute cauda equina syndrome, surgical site abscess. Patient is currently doing well. Denies any chest pain, shortness of breath, fever or chills. Physical Exam Vital signs: Vital Signs 11/29/18 20:00 11/30/18 04:50 11/30/18 12:00 Temperature 97.8 F 97.2 F L 97.8 F Pulse Rate 72 67 69 Respiratory Rate 16 18 21 Blood Pressure 106/55 L 102/58 L 114/61 Pulse Oximetry 97 97 98 11/30/18 16:00 Temperature 97.8 F Pulse Rate 75 Respiratory Rate 19 Blood Pressure 112/59 L Pulse Oximetry 96 Intake & Output 11/29/18 11/30/18 11/30/18 18:59 06:59 18:59 Intake Total 3400 / 3400 520 / 520 360 / 360 Output Total 300 / 300 1300 / 1300 300 / 300 Balance 3100 / 3100 -780 / -780 60 / 60 Intake: IV 520 / 520 520 / 520 Vancomycin Inj 2,000 MG In NS 520 / 520 520 / 520 Inj 500 ML @ 250 mls/hr IV.SIG Q12H [facility] Rx#:[id number] Oral 2880 / 2880 360 / 360 Output: Urine 300 / 300 1300 / 1300 300 / 300 Other: # Voids 2 3 Date of Last Bowel Movement 11/28/18 # Bowel Movements 1 Narrative: GENERAL: Well-nourished, well-developed patient. SKIN: Warm and dry. HEAD: Normocephalic. EYES: No scleral icterus. No injection or drainage. NECK: Supple, trachea midline. No JVD or lymphadenopathy. CARDIOVASCULAR: Regular rate and rhythm without murmurs, gallops, or rubs. RESPIRATORY: Breath sounds equal bilaterally. No accessory muscle use. GASTROINTESTINAL: Abdomen soft, non-tender, nondistended. MUSCULOSKELETAL: No cyanosis, or edema. Surgical incision site in the lower back appears to be unremarkable and no erythema present. BACK: Nontender without obvious deformity. No CVA tenderness. Urinary Catheter Management Indwelling Urethral Catheter: Cath placed during this visit: yes Reason for continuing: Acute urinary retention Insertion date: 11/07/18 Insertion time: 10:55 Results Labs CBC & Chem 7: 11/23/18 07:49 11/30/18 07:52 Labs: Microbiology 11/23/18 16:20 Other Fungal Smear - Final No fungal elements seen 11/23/18 16:20 Other Fungal Culture - Preliminary No growth in 1 week 11/23/18 16:20 Other Acid Fast Bacilli Smear - Final No acid fast bacilli seen 11/23/18 16:20 Other Mycobacterial Culture - Preliminary No growth in 1 week Procedures Procedures: s/p L4/5 laminectomies for decompression of cauda equina Assessment and Plan Plan Acute Cauda Equina Syndrome s/p L4/5 laminectomies for decompression of cauda equina 11/07/18 s/p Decadron Continue Zanaflex, Neurontin, pain management Continue PT OT- patient up and ambulating with walker voiding and have good BM gabapentin 600 mg tid We will start weaning off IV hydromorphone. Post operative surgical site Abscess - lumbar spine S/P I and D , wound revision and washout 11/23 Post op wound infection - some swelling and mild erythema around area, slightly tender, dry, sutures intact MRI of lumbar spine shows collection of fluid within surgical wound, possible abscess Neurosurgery following Continue IV vancomycin q 12 - ESR, CRP elevated cultures- rare WBC, no browth, no fungal element AFB studies negative final cultures no growth ID - Dr. Marie following. Discussed with ID regarding switching antibiotics from vancomycin to Zyvox. ID agreed. suture removal 2 weeks from surgery - around 12/06- Cervical stenosis Patient has severe cervical stenosis throughout cervical spine Symptomatic with neck stiffness, pain, left shoulder stiffness Discussed with physical therapy, exercises requested Neurosurgery was informed, evaluation requested Hemorrhoids Resolved Hydrocortisone 2.5 mg rectal cream, 3 times daily as needed Continue Preparation H as needed Hypocalcemia, hypophosphatemia Stable, monitor periodically with BMP Chronic hypothyroidism. Continue home medication.- synthroid DVT prophylaxis Bilateral SCDs ambulation Discharge plan: Patient is overall doing well. We will try to wean him off Dilaudid IV. Will likely discharge patient on p.o. Zyvox within the next 24-48 hours. Progress Note: Quality VTE Deep Vein Thrombosis/Pulmonary Embolism Present on Admission: No
[2018-11-30] MEDS: Linezolid 600 MG Tablet PO SCH (22:36)
[2018-11-30] MEDS: Temazepam 15 MG Capsule PO PRN (22:37)
[2018-11-30] MEDS ORDERED: Pharmacy Ordered Lab Info OTHER ONE (23:45)
[2018-12-01] MEDS: HYDROmorphone PF Inj 0.5 MG/0.5 ML Syringe IV.PUSH PRN ×2 (04:59→13:10)
[2018-12-01] MEDS: Levothyroxine 88 MCG Tablet PO SCH (05:00)
[2018-12-01] MEDS: oxyCODONE/Acetaminophen 10/325 Tablet PO PRN ×5 (06:13→23:10)
[2018-12-01] MEDS: Heparin - SQ 10,000 UNITS/ML Vial SQ SCH ×3 (06:15→21:07)
[2018-12-01] MEDS: Linezolid 600 MG Tablet PO SCH (08:10)
[2018-12-01] MEDS: Gabapentin 300 MG Capsule PO SCH ×3 (08:10→18:26)
[2018-12-01] MEDS: Potassium Phosphate 500 MG Soluble Tablet PO SCH ×2 (08:18→20:54)
[2018-12-01] MEDS ORDERED: Vancomycin Consult Pharmacy OTHER PRN (16:48)
[2018-12-01] MEDS ORDERED: Vancomycin Inj 2,000 MG in Sodium Chlor 0.9% Inj 500 ML IV.SIG SCH (20:00)
[2018-12-01] MEDS: Morphine Sulfate 15 MG SR Tablet PO SCH (20:53)
[2018-12-01] MEDS: Temazepam 15 MG Capsule PO PRN (21:07)
--- NOTE | 2018-12-01 21:07 | P.PNIM ---
Subjective Interval history: Follow-up for acute cauda equina syndrome, surgical site abscess. Patient is doing well. Ambulating with walker. No fever, chills. Complains of bilateral lower ext burning sensation. Physical Exam Vital signs: Vital Signs 12/01/18 00:15 12/01/18 05:20 12/01/18 08:00 Temperature 97.3 F L 97.8 F 97.4 F L Pulse Rate 68 70 64 Respiratory Rate 18 19 20 Blood Pressure 112/57 L 130/68 119/66 Pulse Oximetry 97 96 96 12/01/18 12:00 12/01/18 16:00 12/01/18 20:00 Temperature 97.9 F 97.1 F L 98.4 F Pulse Rate 70 73 72 Respiratory Rate 20 22 20 Blood Pressure 106/82 124/53 L 109/55 L Pulse Oximetry 98 96 96 Intake & Output 12/01/18 12/01/18 12/02/18 06:59 18:59 06:59 Intake Total 1170 / 1170 Output Total 1999 Balance -1999 1170 / 1170 Intake: IV 520 / 520 Oral 650 / 650 Output: Urine 1999 Other: # Voids 4 Date of Last Bowel Movement 11/30/18 12/01/18 # Bowel Movements 1 1 Narrative: GENERAL: Well-nourished, well-developed patient. SKIN: Warm and dry. HEAD: Normocephalic. EYES: No scleral icterus. No injection or drainage. NECK: Supple, trachea midline. No JVD or lymphadenopathy. CARDIOVASCULAR: Regular rate and rhythm without murmurs, gallops, or rubs. RESPIRATORY: Breath sounds equal bilaterally. No accessory muscle use. GASTROINTESTINAL: Abdomen soft, non-tender, nondistended. MUSCULOSKELETAL: No cyanosis, or edema. Surgical incision site in the lower back appears to be unremarkable and no erythema present. BACK: Nontender without obvious deformity. No CVA tenderness. Urinary Catheter Management Indwelling Urethral Catheter: Cath placed during this visit: yes Reason for continuing: Acute urinary retention Insertion date: 11/07/18 Insertion time: 10:55 Results Labs CBC & Chem 7: 11/23/18 07:49 11/30/18 07:52 Procedures Procedures: s/p L4/5 laminectomies for decompression of cauda equina Assessment and Plan Plan Acute Cauda Equina Syndrome s/p L4/5 laminectomies for decompression of cauda equina 11/07/18 s/p Decadron Continue Zanaflex, Neurontin. Continue PT OT- patient up and ambulating with walker gabapentin 600 mg tid d/c IV Dilaudid. We will start patient on Morphine sulfate 15mg Q12hrs. Post operative surgical site Abscess - lumbar spine S/P I and D , wound revision and washout 11/23 Post op wound infection - some swelling and mild erythema around area, slightly tender, dry, sutures intact MRI of lumbar spine shows collection of fluid within surgical wound, possible abscess Neurosurgery following Continue IV vancomycin q 12 - ESR, CRP elevated cultures- rare WBC, no browth, no fungal element AFB studies negative final cultures no growth ID - Dr. Marie following. Discussed with ID and neurosurgery. Neurosurgery would prefer to keep patient on IV abx. ESR, CRP still elevated. ID recommends switching back to Vancomycin until about 12/07/2018. suture removal 2 weeks from surgery - around 12/06- Hemorrhoids Resolved Hydrocortisone 2.5 mg rectal cream, 3 times daily as needed Continue Preparation H as needed Hypocalcemia, hypophosphatemia Stable, monitor periodically with BMP Chronic hypothyroidism. Continue home medication - levothyroxine. DVT prophylaxis Bilateral SCDs ambulation Discharge plan: Based on Neurosurgery input and ID recommendations, we will keep pt on IV Vancomycin until 12/07/2018. Progress Note: Quality VTE Deep Vein Thrombosis/Pulmonary Embolism Present on Admission: No
[2018-12-02] MEDS: oxyCODONE/Acetaminophen 10/325 Tablet PO PRN ×5 (03:56→23:05)
[2018-12-02 06:16] LABS: Glomerular Filtration Rate Greater Than 89 mL/min (>89)
[2018-12-02] MEDS: Levothyroxine 88 MCG Tablet PO SCH (06:38)
[2018-12-02] MEDS: Heparin - SQ 10,000 UNITS/ML Vial SQ SCH ×3 (06:38→22:10)
[2018-12-02] MEDS: Gabapentin 300 MG Capsule PO SCH ×3 (08:20→17:27)
[2018-12-02] MEDS: Morphine Sulfate 15 MG SR Tablet PO SCH ×2 (08:20→20:50)
[2018-12-02] MEDS: Potassium Phosphate 500 MG Soluble Tablet PO SCH ×2 (09:27→20:49)
[2018-12-02] MEDS: Vancomycin Inj 1,500 MG in Sodium Chlor 0.9% Inj 500 ML IV.SIG SCH ×2 (12:32→23:05)
[2018-12-03] MEDS: oxyCODONE/Acetaminophen 10/325 Tablet PO PRN ×5 (04:40→22:38)
[2018-12-03] MEDS: Heparin - SQ 10,000 UNITS/ML Vial SQ SCH ×3 (05:05→21:26)
[2018-12-03] MEDS: Levothyroxine 88 MCG Tablet PO SCH (05:05)
[2018-12-03 08:00] LABS: Glomerular Filtration Rate Greater Than 89 mL/min (>89)
[2018-12-03] MEDS: Potassium Phosphate 500 MG Soluble Tablet PO SCH ×2 (09:45→21:24)
[2018-12-03] MEDS: Gabapentin 300 MG Capsule PO SCH ×3 (09:45→18:35)
[2018-12-03] MEDS: Morphine Sulfate 15 MG SR Tablet PO SCH ×2 (09:46→21:25)
[2018-12-03] MEDS ORDERED: Pharmacy Ordered Lab Info OTHER ONE (11:45)
[2018-12-03] MEDS: Vancomycin Inj 1,500 MG in Sodium Chlor 0.9% Inj 500 ML IV.SIG SCH (13:29)
--- NOTE | 2018-12-03 22:01 | P.PNIM ---
Subjective Interval history: Delayed entry for 12/02/2018 Follow-up for acute cauda equina syndrome, surgical site abscess. Doing well. No acute concerns. Ambulating but complains of persistent pain. No fever, chills. Physical Exam Vital signs: Vital Signs 12/03/18 00:00 12/03/18 04:00 12/03/18 04:25 Temperature 98.1 F 98 F Pulse Rate 63 67 Respiratory Rate 18 18 Blood Pressure 119/57 L 98/53 L 150/63 H Pulse Oximetry 96 97 12/03/18 08:00 12/03/18 12:00 12/03/18 16:00 Temperature 97.4 F L 97.6 F 97.1 F L Pulse Rate 62 75 82 Respiratory Rate 18 20 20 Blood Pressure 93/54 L 118/64 121/57 L Pulse Oximetry 94 L 97 97 12/03/18 19:45 Temperature 97.9 F Pulse Rate 73 Respiratory Rate 18 Blood Pressure 130/76 Pulse Oximetry 99 Intake & Output 12/03/18 12/03/18 12/04/18 06:59 18:59 06:59 Intake Total 515 / 515 515 / 515 Balance 515 / 515 515 / 515 Weight 74.2 kg Intake: IV 515 / 515 515 / 515 Vancomycin Inj 1,500 MG In NS 515 / 515 515 / 515 Inj 500 ML @ 257.5 mls/hr IV. SIG Q12H [facility] Rx#:[id number] Other: # Voids 4 Date of Last Bowel Movement 12/01/18 12/02/18 Narrative: GENERAL: Well-nourished, well-developed patient. SKIN: Warm and dry. HEAD: Normocephalic. EYES: No scleral icterus. No injection or drainage. NECK: Supple, trachea midline. No JVD or lymphadenopathy. CARDIOVASCULAR: Regular rate and rhythm without murmurs, gallops, or rubs. RESPIRATORY: Breath sounds equal bilaterally. No accessory muscle use. GASTROINTESTINAL: Abdomen soft, non-tender, nondistended. MUSCULOSKELETAL: No cyanosis, or edema. Surgical incision site in the lower back appears to be unremarkable and no erythema present. BACK: Nontender without obvious deformity. No CVA tenderness. Urinary Catheter Management Indwelling Urethral Catheter: Cath placed during this visit: yes Reason for continuing: Acute urinary retention Insertion date: 11/07/18 Insertion time: 10:55 Results Labs CBC & Chem 7: 11/23/18 07:49 12/03/18 06:44 Procedures Procedures: s/p L4/5 laminectomies for decompression of cauda equina Assessment and Plan Plan Acute Cauda Equina Syndrome s/p L4/5 laminectomies for decompression of cauda equina 11/07/18 s/p Decadron Continue Zanaflex, Neurontin. Continue PT OT- patient up and ambulating with walker gabapentin 600 mg tid Continue Morphine sulfate 15mg Q12hrs. Post operative surgical site Abscess - lumbar spine S/P I and D , wound revision and washout 11/23 Post op wound infection - some swelling and mild erythema around area, slightly tender, dry, sutures intact MRI of lumbar spine shows collection of fluid within surgical wound, possible abscess Neurosurgery following Continue IV vancomycin q 12 - ESR, CRP elevated cultures- rare WBC, no browth, no fungal element AFB studies negative final cultures no growth ID - Dr. Marie following. Discussed with ID and neurosurgery. Neurosurgery would prefer to keep patient on IV abx. ESR, CRP still elevated. ID recommends switching back to Vancomycin until about 12/07/2018. suture removal 2 weeks from surgery - around Hemorrhoids Resolved Hydrocortisone 2.5 mg rectal cream, 3 times daily as needed Continue Preparation H as needed Hypocalcemia, hypophosphatemia Stable, monitor periodically with BMP Chronic hypothyroidism. Continue home medication - levothyroxine. DVT prophylaxis Bilateral SCDs ambulation Discharge plan: Based on Neurosurgery input and ID recommendations, we will keep pt on IV Vancomycin until 12/07/2018. Progress Note: Quality VTE Deep Vein Thrombosis/Pulmonary Embolism Present on Admission: No
--- NOTE | 2018-12-03 22:02 | P.PNIM ---
Subjective Interval history: Follow-up for acute cauda equina syndrome, surgical site abscess. Patient is doing well. He reports significant improvements of his symptoms due to amitriptyline. Physical Exam Vital signs: Vital Signs 12/03/18 00:00 12/03/18 04:00 12/03/18 04:25 Temperature 98.1 F 98 F Pulse Rate 63 67 Respiratory Rate 18 18 Blood Pressure 119/57 L 98/53 L 150/63 H Pulse Oximetry 96 97 12/03/18 08:00 12/03/18 12:00 12/03/18 16:00 Temperature 97.4 F L 97.6 F 97.1 F L Pulse Rate 62 75 82 Respiratory Rate 18 20 20 Blood Pressure 93/54 L 118/64 121/57 L Pulse Oximetry 94 L 97 97 12/03/18 19:45 Temperature 97.9 F Pulse Rate 73 Respiratory Rate 18 Blood Pressure 130/76 Pulse Oximetry 99 Intake & Output 12/03/18 12/03/18 12/04/18 06:59 18:59 06:59 Intake Total 515 / 515 515 / 515 Balance 515 / 515 515 / 515 Weight 74.2 kg Intake: IV 515 / 515 515 / 515 Vancomycin Inj 1,500 MG In NS 515 / 515 515 / 515 Inj 500 ML @ 257.5 mls/hr IV. SIG Q12H [facility] Rx#:[id number] Other: # Voids 4 Date of Last Bowel Movement 12/01/18 12/02/18 Narrative: GENERAL: Well-nourished, well-developed patient. SKIN: Warm and dry. HEAD: Normocephalic. EYES: No scleral icterus. No injection or drainage. NECK: Supple, trachea midline. No JVD or lymphadenopathy. CARDIOVASCULAR: Regular rate and rhythm without murmurs, gallops, or rubs. RESPIRATORY: Breath sounds equal bilaterally. No accessory muscle use. GASTROINTESTINAL: Abdomen soft, non-tender, nondistended. MUSCULOSKELETAL: No cyanosis, or edema. Surgical incision site in the lower back appears to be unremarkable and no erythema present. BACK: Nontender without obvious deformity. No CVA tenderness. Urinary Catheter Management Indwelling Urethral Catheter: Cath placed during this visit: yes Reason for continuing: Acute urinary retention Insertion date: 11/07/18 Insertion time: 10:55 Results Labs CBC & Chem 7: 11/23/18 07:49 12/03/18 06:44 Procedures Procedures: s/p L4/5 laminectomies for decompression of cauda equina Assessment and Plan Plan Acute Cauda Equina Syndrome s/p L4/5 laminectomies for decompression of cauda equina 11/07/18 s/p Decadron Continue Zanaflex, Neurontin. Continue PT OT- patient up and ambulating with walker gabapentin 600 mg tid Continue Morphine sulfate 15mg Q12hrs. Will continue amitriptyline 75mg Qday. Post operative surgical site Abscess - lumbar spine S/P I and D , wound revision and washout 11/23 Post op wound infection - some swelling and mild erythema around area, slightly tender, dry, sutures intact MRI of lumbar spine shows collection of fluid within surgical wound, possible abscess Neurosurgery following Continue IV vancomycin q 12 - ESR, CRP elevated cultures- rare WBC, no browth, no fungal element AFB studies negative final cultures no growth ID - Dr. Marie following. Discussed with ID and neurosurgery. Neurosurgery would prefer to keep patient on IV abx. ESR, CRP still elevated. ID recommends switching back to Vancomycin until about 12/07/2018. suture removal 2 weeks from surgery - around Hemorrhoids Resolved Hydrocortisone 2.5 mg rectal cream, 3 times daily as needed Continue Preparation H as needed Hypocalcemia, hypophosphatemia Stable, monitor periodically with BMP Chronic hypothyroidism. Continue home medication - levothyroxine. DVT prophylaxis Bilateral SCDs ambulation Discharge plan: Based on Neurosurgery input and ID recommendations, we will keep pt on IV Vancomycin until 12/07/2018. Progress Note: Quality VTE Deep Vein Thrombosis/Pulmonary Embolism Present on Admission: No
[2018-12-03] MEDS: Temazepam 15 MG Capsule PO PRN (22:44)
[2018-12-04] MEDS: Vancomycin Inj 1,500 MG in Sodium Chlor 0.9% Inj 500 ML IV.SIG SCH ×2 (00:22→13:15)
[2018-12-04] MEDS: oxyCODONE/Acetaminophen 10/325 Tablet PO PRN ×6 (02:32→22:38)
[2018-12-04] MEDS: Levothyroxine 88 MCG Tablet PO SCH (06:26)
[2018-12-04] MEDS: Heparin - SQ 10,000 UNITS/ML Vial SQ SCH ×3 (06:27→21:09)
[2018-12-04] MEDS: Gabapentin 300 MG Capsule PO SCH ×3 (09:06→18:19)
[2018-12-04] MEDS: Morphine Sulfate 15 MG SR Tablet PO SCH ×2 (09:06→21:08)
[2018-12-04] MEDS: Potassium Phosphate 500 MG Soluble Tablet PO SCH ×2 (10:33→21:08)
--- NOTE | 2018-12-04 14:45 | P.PNIM ---
Subjective Interval history: Follow-up for acute cauda equina syndrome, surgical site abscess. Patient is currently doing well. Denies any chest pain, shortness of breath, fever or chills. Tolerating diet well. Physical Exam Vital signs: Vital Signs 12/03/18 16:00 12/03/18 19:45 12/03/18 23:20 Temperature 97.1 F L 97.9 F 97.8 F Pulse Rate 82 73 74 Respiratory Rate 20 18 18 Blood Pressure 121/57 L 130/76 110/56 L Pulse Oximetry 97 99 99 12/04/18 03:21 12/04/18 05:05 12/04/18 07:59 Temperature 97.6 F 97.3 F L Pulse Rate 67 74 Respiratory Rate 14 18 16 Blood Pressure 101/52 L 99/58 L Pulse Oximetry 97 95 12/04/18 10:34 12/04/18 12:07 Temperature Pulse Rate Respiratory Rate 18 17 Blood Pressure Pulse Oximetry Intake & Output 12/03/18 12/04/18 12/04/18 18:59 06:59 18:59 Intake Total 515 / 515 515 / 515 Balance 515 / 515 515 / 515 Intake: IV 515 / 515 515 / 515 Vancomycin Inj 1,500 MG In NS 515 / 515 515 / 515 Inj 500 ML @ 257.5 mls/hr IV. SIG Q12H [facility] Rx#:[id number] Other: # Voids 3 Date of Last Bowel Movement 12/02/18 12/02/18 Narrative: GENERAL: Well-nourished, well-developed patient. SKIN: Warm and dry. HEAD: Normocephalic. EYES: No scleral icterus. No injection or drainage. NECK: Supple, trachea midline. No JVD or lymphadenopathy. CARDIOVASCULAR: Regular rate and rhythm without murmurs, gallops, or rubs. RESPIRATORY: Breath sounds equal bilaterally. No accessory muscle use. GASTROINTESTINAL: Abdomen soft, non-tender, nondistended. MUSCULOSKELETAL: No cyanosis, or edema. Surgical incision site in the lower back appears to be unremarkable and no erythema present. BACK: Nontender without obvious deformity. No CVA tenderness. Urinary Catheter Management Indwelling Urethral Catheter: Cath placed during this visit: yes Reason for continuing: Acute urinary retention Insertion date: 11/07/18 Insertion time: 10:55 Results Labs CBC & Chem 7: 11/23/18 07:49 12/03/18 06:44 Procedures Procedures: s/p L4/5 laminectomies for decompression of cauda equina Assessment and Plan Plan Acute Cauda Equina Syndrome s/p L4/5 laminectomies for decompression of cauda equina 11/07/18 s/p Decadron Continue Zanaflex, Neurontin. Continue PT OT- patient up and ambulating with walker gabapentin 600 mg tid Continue Morphine sulfate 15mg Q12hrs. Will continue amitriptyline 75mg Qday. Post operative surgical site Abscess - lumbar spine S/P I and D , wound revision and washout 11/23 Post op wound infection - some swelling and mild erythema around area, slightly tender, dry, sutures intact MRI of lumbar spine shows collection of fluid within surgical wound, possible abscess Neurosurgery following Continue IV vancomycin q 12 - ESR, CRP elevated cultures- rare WBC, no browth, no fungal element AFB studies negative final cultures no growth ID - Dr. Marie following. Discussed with ID and neurosurgery. Neurosurgery would prefer to keep patient on IV abx. ESR, CRP still elevated. ID recommends switching back to Vancomycin until about 12/07/2018. suture removal 2 weeks from surgery - around Hemorrhoids Resolved Hydrocortisone 2.5 mg rectal cream, 3 times daily as needed Continue Preparation H as needed Hypocalcemia, hypophosphatemia Stable, monitor periodically with BMP Chronic hypothyroidism. Continue home medication - levothyroxine. DVT prophylaxis Bilateral SCDs ambulation Discharge plan: Based on Neurosurgery input and ID recommendations, we will keep pt on IV Vancomycin until 12/07/2018. Progress Note: Quality VTE Deep Vein Thrombosis/Pulmonary Embolism Present on Admission: No
[2018-12-04] MEDS: Temazepam 15 MG Capsule PO PRN (21:12)
[2018-12-05] MEDS: oxyCODONE/Acetaminophen 10/325 Tablet PO PRN ×6 (02:27→22:43)
[2018-12-05] MEDS: Vancomycin Inj 1,500 MG in Sodium Chlor 0.9% Inj 500 ML IV.SIG SCH ×2 (02:28→12:40)
[2018-12-05] MEDS: Levothyroxine 88 MCG Tablet PO SCH (06:25)
[2018-12-05 07:28] LABS: Glomerular Filtration Rate Greater Than 89 mL/min (>89)
[2018-12-05] MEDS: Heparin - SQ 10,000 UNITS/ML Vial SQ SCH ×3 (07:38→23:00)
[2018-12-05] MEDS: Gabapentin 300 MG Capsule PO SCH ×3 (08:41→18:24)
[2018-12-05] MEDS: Morphine Sulfate 15 MG SR Tablet PO SCH ×2 (08:41→21:27)
[2018-12-05] MEDS: Potassium Phosphate 500 MG Soluble Tablet PO SCH ×2 (08:41→21:26)
--- NOTE | 2018-12-05 10:15 | P.PNIM ---
Subjective Interval history: Follow-up acute cauda equina syndrome status post laminectomy/ post operative surgical site abscess December 05, 2018patient seen and examined, no acute event overnight, afebrile. Denies any significant lower extremity pain with ambulation. Currently on IV vancomycin Physical Exam Vital signs: Vital Signs 12/04/18 10:34 12/04/18 12:03 12/04/18 12:07 Temperature 97.7 F Pulse Rate 73 Respiratory Rate 18 18 17 Blood Pressure 117/58 L Pulse Oximetry 96 12/04/18 15:47 12/04/18 16:02 12/04/18 19:30 Temperature 97.7 F 98.0 F Pulse Rate 73 78 Respiratory Rate 18 18 18 Blood Pressure 121/60 130/65 Pulse Oximetry 95 96 12/04/18 23:30 12/05/18 04:15 12/05/18 08:00 Temperature 97.9 F 98.1 F 97.7 F Pulse Rate 73 77 70 Respiratory Rate 18 18 18 Blood Pressure 100/50 L 115/56 L 106/50 L Pulse Oximetry 95 95 95 12/05/18 09:57 Temperature Pulse Rate Respiratory Rate 18 Blood Pressure Pulse Oximetry Intake & Output 12/04/18 12/05/18 12/05/18 18:59 06:59 18:59 Intake Total 515 / 515 515 / 515 Balance 515 / 515 515 / 515 Intake: IV 515 / 515 515 / 515 Vancomycin Inj 1,500 MG In NS 515 / 515 515 / 515 Inj 500 ML @ 257.5 mls/hr IV. SIG Q12H LOKESH Rx#:[id number] Other: # Voids 3 Date of Last Bowel Movement 12/02/18 12/02/18 12/02/18 Narrative: GENERAL: Well-nourished, well-developed patient. SKIN: Warm and dry. HEAD: Normocephalic. EYES: No scleral icterus. No injection or drainage. NECK: Supple, trachea midline. No JVD or lymphadenopathy. CARDIOVASCULAR: Regular rate and rhythm without murmurs, gallops, or rubs. RESPIRATORY: Breath sounds equal bilaterally. No accessory muscle use. GASTROINTESTINAL: Abdomen soft, non-tender, nondistended. MUSCULOSKELETAL: No cyanosis, or edema. Surgical incision site in the lower back appears to be unremarkable and no erythema present. BACK: Nontender without obvious deformity. No CVA tenderness. Urinary Catheter Management Indwelling Urethral Catheter: Cath placed during this visit: yes Reason for continuing: Acute urinary retention Insertion date: 11/07/18 Insertion time: 10:55 Results Labs CBC & Chem 7: 11/23/18 07:49 12/05/18 06:11 Procedures Procedures: s/p L4/5 laminectomies for decompression of cauda equina Assessment and Plan Plan 58-year-old man with Acute Cauda Equina Syndrome s/p L4/5 laminectomies for decompression of cauda equina 11/07/18 Continue Zanaflex, Neurontin, amitriptyline and Neurontin Continue PT/OT Continue Morphine sulfate 15mg Q12hrs. Post operative surgical site Abscess - lumbar spine S/P I and D , wound revision and washout 11/23 MRI of lumbar spine shows collection of fluid within surgical wound, possible abscess Neurosurgery following Continue IV vancomycin q 12H until December 07, 2018 ID - Dr. Marie following. suture removal 2 weeks from surgery - around 12/06- Hemorrhoids Resolved Hydrocortisone 2.5 mg rectal cream, 3 times daily as needed Continue Preparation H as needed Hypocalcemia, hypophosphatemia Stable, Chronic hypothyroidism. Continue levothyroxine. DVT prophylaxis Bilateral SCDs ambulation Progress Note: Quality VTE Deep Vein Thrombosis/Pulmonary Embolism Present on Admission: No
[2018-12-05] MEDS: Temazepam 15 MG Capsule PO PRN (21:27)
[2018-12-06] MEDS: Vancomycin Inj 1,500 MG in Sodium Chlor 0.9% Inj 500 ML IV.SIG SCH ×2 (01:00→13:02)
[2018-12-06] MEDS: oxyCODONE/Acetaminophen 10/325 Tablet PO PRN ×5 (02:44→19:14)
[2018-12-06] MEDS: Levothyroxine 88 MCG Tablet PO SCH (06:31)
[2018-12-06] MEDS: Heparin - SQ 10,000 UNITS/ML Vial SQ SCH ×3 (06:58→23:16)
[2018-12-06] MEDS: Morphine Sulfate 15 MG SR Tablet PO SCH ×2 (08:46→22:35)
[2018-12-06] MEDS: Potassium Phosphate 500 MG Soluble Tablet PO SCH ×2 (08:46→22:31)
[2018-12-06] MEDS: Gabapentin 300 MG Capsule PO SCH ×3 (08:46→17:57)
--- NOTE | 2018-12-06 15:07 | P.PNIM ---
Subjective Interval history: Follow-up for acute cauda equina syndrome, surgical site abscess. Patient is currently doing well. Denies any chest pain, shortness of breath, fever or chills. Physical Exam Vital signs: Vital Signs 12/05/18 16:00 12/05/18 17:06 12/05/18 20:00 Temperature 97.6 F Pulse Rate 78 Respiratory Rate 16 18 18 Blood Pressure 118/58 L Pulse Oximetry 95 12/05/18 20:10 12/05/18 23:45 12/06/18 04:35 Temperature 98.2 F 98.3 F 97.6 F Pulse Rate 74 70 78 Respiratory Rate 18 18 18 Blood Pressure 108/58 L 131/58 L 131/73 Pulse Oximetry 95 96 100 12/06/18 07:10 12/06/18 12:00 Temperature 97.7 F 96.8 F L Pulse Rate 75 85 Respiratory Rate 16 20 Blood Pressure 134/65 137/75 Pulse Oximetry 95 97 Intake & Output 12/05/18 12/06/18 12/06/18 18:59 06:59 18:59 Intake Total 515 / 515 995 / 995 Output Total 400 / 400 Balance 515 / 515 595 / 595 Intake: IV 515 / 515 515 / 515 Vancomycin Inj 1,500 MG In NS 515 / 515 515 / 515 Inj 500 ML @ 257.5 mls/hr IV. SIG Q12H LOKESH Rx#:[id number] Oral 480 / 480 Output: Urine 400 / 400 Other: # Voids 2 2 Date of Last Bowel Movement 12/02/18 Narrative: GENERAL: Well-nourished, well-developed patient. SKIN: Warm and dry. HEAD: Normocephalic. EYES: No scleral icterus. No injection or drainage. NECK: Supple, trachea midline. No JVD or lymphadenopathy. CARDIOVASCULAR: Regular rate and rhythm without murmurs, gallops, or rubs. RESPIRATORY: Breath sounds equal bilaterally. No accessory muscle use. GASTROINTESTINAL: Abdomen soft, non-tender, nondistended. MUSCULOSKELETAL: No cyanosis, or edema. Surgical incision site in the lower back appears to be unremarkable and no erythema present. BACK: Nontender without obvious deformity. No CVA tenderness. Urinary Catheter Management Indwelling Urethral Catheter: Cath placed during this visit: yes Reason for continuing: Acute urinary retention Insertion date: 11/07/18 Insertion time: 10:55 Results Labs CBC & Chem 7: 11/23/18 07:49 12/05/18 06:11 Procedures Procedures: s/p L4/5 laminectomies for decompression of cauda equina Assessment and Plan Plan Acute Cauda Equina Syndrome s/p L4/5 laminectomies for decompression of cauda equina 11/07/18 s/p Decadron Continue Zanaflex, Neurontin. Continue PT OT- patient up and ambulating with walker gabapentin 600 mg tid Continue Morphine sulfate 15mg Q12hrs, Percocet 10/325mg Q4h PRN Will continue amitriptyline 75mg Qday. Post operative surgical site Abscess - lumbar spine S/P I and D , wound revision and washout 11/23 Post op wound infection - some swelling and mild erythema around area, slightly tender, dry, sutures intact MRI of lumbar spine shows collection of fluid within surgical wound, possible abscess Neurosurgery following Continue IV vancomycin q 12 - ESR, CRP elevated cultures- rare WBC, no browth, no fungal element AFB studies negative final cultures no growth ID - Dr. Marie following. Discussed with ID and neurosurgery. Neurosurgery would prefer to keep patient on IV abx. ESR, CRP still elevated. ID recommends switching back to Vancomycin until about 12/07/2018. suture removal 2 weeks from surgery - around 12/06- Hemorrhoids Resolved Hydrocortisone 2.5 mg rectal cream, 3 times daily as needed Continue Preparation H as needed Hypocalcemia, hypophosphatemia Stable, monitor periodically with BMP Chronic hypothyroidism. Continue home medication - levothyroxine. DVT prophylaxis Bilateral SCDs ambulation Discharge plan: Discharge medications prepared. Patient will receive Vancomycin at around 1AM on 12/07/2018. Patient can be discharged on 12/07/2018 in the AM. Sutures can be removed in the AM as well. Prescriptions are in the chart. Progress Note: Quality VTE Deep Vein Thrombosis/Pulmonary Embolism Present on Admission: No
--- NOTE | 2018-12-06 15:34 | P.DS ---
DS: Providers Date of admission: 11/06/18 23:47 Primary care physician: No Primary Care Physician Consults: 11/06/18 23:47 Consult to Neurosurgery Routine Consulting Provider: Renny Prajapati Preferred Ass[employer]phibious Vehicle Officer:: Renny Prajapati Reason for Consultation: acute spinal stenosis L4-5 HNP Spoke with:: Added to List, please call MD in AM Date Notified:: 11/07/18 Time Notified:: 00:54 Comments:: spoke to Dr Prajapati @ [facility] Ordering Provider: DARCY 11/22/18 09:34 Consult to Neurosurgery Routine Consulting Provider: Satinder Garcia Patient known to:: Satinder De La Cruzes Reason for Consultation: 58M previously treated by neurosurgery for cauda equina syndrome s/p laminectomy. Redness and swelling at surgical site, MRI shows enhancing fluid collection suspect for abscess. Also obtained MRI of his c-spine which shows severe stenosis. Please assist with treatment for possible abscess, either surgical aspiration or with IR. Thanks. Notified:: Physician Spoke with:: Date Notified:: 11/22/18 Time Notified:: 09:52 Ordering Provider: ALEXANDRU 11/24/18 12:52 Consult to Infectious Diseases Routine Consulting Provider: Ramirez Marie Reason for Consultation: lumbar wound infection Notified:: Service Spoke with:: gee Date Notified:: 11/24/18 Time Notified:: 13:02 Ordering Provider: YEYO Brief History from admission: 58-year-old male with a history of hypothyroidism who presents with a one month history of progressively worsening bilateral lower extremity weakness, burning paresthesias, numbness worse on the left, as well as a 3-week history of worsening saddle anesthesia, bilateral leg weakness with prolonged ambulation. Patient did not have a ride home from work today and was forced to walk home, however is unable to get more than a block before he has to lean forward to prevent his legs from giving out on him. DS: Summary Acute Cauda Equina Syndrome s/p L4/5 laminectomies for decompression of cauda equina 11/07/18 s/p Decadron Continue Zanaflex, Neurontin. Continue PT OT- patient up and ambulating with walker gabapentin 600 mg tid Continue Morphine sulfate 15mg Q12hrs, Percocet 10/325mg Q4h PRN Will continue amitriptyline 75mg Qday. Post operative surgical site Abscess - lumbar spine S/P I and D , wound revision and washout 11/23 Post op wound infection - some swelling and mild erythema around area, slightly tender, dry, sutures intact MRI of lumbar spine shows collection of fluid within surgical wound, possible abscess Neurosurgery following Continue IV vancomycin q 12 - ESR, CRP elevated cultures- rare WBC, no browth, no fungal element AFB studies negative final cultures no growth ID - Dr. Marie following. Discussed with ID and neurosurgery. ESR and CRP were improved but elevated. ID recommended keeping patient on IV Vancomycin until 12/07/2018. suture removal 2 weeks from surgery - around Discussed with ID again on 12/06/2018 - Will give patient one week of Bactrim DS upon discharge. Hemorrhoids Resolved Hydrocortisone 2.5 mg rectal cream, 3 times daily as needed Continue Preparation H as needed Hypocalcemia, hypophosphatemia Stable, monitor periodically with BMP Chronic hypothyroidism. Continue home medication - levothyroxine. DVT prophylaxis Bilateral SCDs ambulation Please note the following updated D/C meds: New amitriptyline 75 mg Tablet 75 mg PO DAILY Qty: 30 RF: 3 tizanidine [Zanaflex] 4 mg Tablet 4 mg PO Q6H Qty: 20 RF: 0 gabapentin [Neurontin] 300 mg Capsule 600 mg PO TID Qty: 30 RF: 0 morphine 15 mg Tablet Extended Release 15 mg PO Q12HR Qty: 10 RF: 0 oxycodone-acetaminophen 10-325 mg Tablet 1 tab PO Q4H PRN (Reason: Acute Pain) Qty: 18 RF: 0 sulfamethoxazole-trimethoprim [Bactrim DS] 800-160 mg tablet 1 tab PO Q12H Qty: 14 RF: 0 Continue levothyroxine 88 mcg Tablet 88 mcg PO DAILY Qty: 30 RF: 3 Time Spent with Patient Total time spent providing and/or coordinating discharge services: Greater than 30 minutes Quality: VTE Deep Vein Thrombosis/Pulmonary Embolism Present on Admission: No Exam Narrative Exam Narrative: GENERAL: Well-nourished, well-developed patient. SKIN: Warm and dry. HEAD: Normocephalic. EYES: No scleral icterus. No injection or drainage. NECK: Supple, trachea midline. No JVD or lymphadenopathy. CARDIOVASCULAR: Regular rate and rhythm without murmurs, gallops, or rubs. RESPIRATORY: Breath sounds equal bilaterally. No accessory muscle use. GASTROINTESTINAL: Abdomen soft, non-tender, nondistended. MUSCULOSKELETAL: No cyanosis, or edema. Surgical incision site in the lower back appears to be unremarkable and no erythema present. BACK: Nontender without obvious deformity. No CVA tenderness. Results Procedures completed during hospitalization: s/p L4/5 laminectomies for decompression of cauda equina Labs on day of discharge: Labs from last 24 hours 12/06/18 12/06/18 09:49 09:49 ESR 47 H C-Reactive Protein 0.65 H Preliminary micro results at discharge 11/23/18 16:20 Fungal Culture - Preliminary Other No growth in 1 week 11/23/18 16:20 Mycobacterial Culture - Preliminary Other No growth in 1 week Impressions ITS Impressions Lumbar Spine X-Ray 11/07/18 00:00 CONCLUSION: Probe at L4-5 Chest X-Ray 11/07/18 09:00 CONCLUSION: No evidence of acute cardiopulmonary disease. Cervical Spine MRI 11/21/18 00:00 CONCLUSION: 1. Severe degenerative changes identified throughout the cervical spine with multiple levels of retrolisthesis as noted above. There is narrowing of the spinal canal seen from C3 through the superior endplate of C7 with focal air or compression at the level of C5/C6. Multiple levels of severe neuroforaminal stenosis. Lumbar Spine MRI 11/21/18 00:00 CONCLUSION: 1. There are extensive postsurgical changes consistent with laminectomy and discectomy at L4-5. There is a fluid collection evident within the operative bed extending to the skin surface. There is extensive contrast enhancement around this. This is concerning for abscess. This is described in detail above. Discharge Plan Discharge Disposition Patient Disposition: 01 Discharge Home Discharge Condition Condition: Good Discharge Order Discharge Orders: Discharge Order (Routine); Ordered 12/06/18 Ordered By: Cristal Miller Discharge Details Anticipated Discharge Date: 12/07/18 Discharge Comment: Discharge at 9AM on 12/07/2018 after Suture removal. Physicians Team ED Provider: Justyna Mcmahon Primary Care Provider: Primary Care Physici,No Attending Provider: Cristal Miller Other Providers: Renny Prajapati ; Satinder Garcia ; Ramirez Marie Rxs /Orders / Referrals /Forms Prescriptions: New amitriptyline 75 mg Tablet 75 mg PO DAILY Qty: 30 RF: 3 tizanidine [Zanaflex] 4 mg Tablet 4 mg PO Q6H Qty: 20 RF: 0 gabapentin [Neurontin] 300 mg Capsule 600 mg PO TID Qty: 30 RF: 0 morphine 15 mg Tablet Extended Release 15 mg PO Q12HR Qty: 10 RF: 0 oxycodone-acetaminophen 10-325 mg Tablet 1 tab PO Q4H PRN (Reason: Acute Pain) Qty: 18 RF: 0 sulfamethoxazole-trimethoprim [Bactrim DS] 800-160 mg tablet 1 tab PO Q12H Qty: 14 RF: 0 Continue levothyroxine 88 mcg Tablet 88 mcg PO DAILY Qty: 30 RF: 3 Referrals: Primary Care Niki Carrion [Primary Care Provider] - See Instructions (PCP within 1 -2 weeks. Neurosurgery follow up within 3-4 weeks. ) Satinder Garcia MD [Physician] - See Instructions (follow up in 1 month, obtain f /u MRI L spine prior to appointment) Discharge Instructions Patient Printed Instructions: Laminectomy (DC) Status ED Status: Left Department
[2018-12-06] MEDS: Temazepam 15 MG Capsule PO PRN (22:31)
[2018-12-07] MEDS: Vancomycin Inj 1,500 MG in Sodium Chlor 0.9% Inj 500 ML IV.SIG SCH (02:00)
[2018-12-07] MEDS: oxyCODONE/Acetaminophen 10/325 Tablet PO PRN ×2 (02:59→07:22)
[2018-12-07] MEDS: Levothyroxine 88 MCG Tablet PO SCH (07:21)
[2018-12-07] MEDS: Heparin - SQ 10,000 UNITS/ML Vial SQ SCH (07:22)
[2018-12-07 08:38] VITALS: BP 120/58; PULSE 82; RESP 22; TEMP 97.9; O2SAT 98
[2018-12-07] MEDS: Gabapentin 300 MG Capsule PO SCH (08:55)
[2018-12-07] MEDS: Potassium Phosphate 500 MG Soluble Tablet PO SCH (08:55)
[2018-12-07] MEDS: Morphine Sulfate 15 MG SR Tablet PO SCH (08:56)
--- NOTE | 2018-12-07 10:06 | P.PNIM ---
Subjective Interval history: patient seen this am says numbness/tingling in feet is improved no back pain suture removed no fever or chills ambulating room Physical Exam Vital signs: Vital Signs 12/06/18 12:00 12/06/18 16:00 12/06/18 21:06 Temperature 96.8 F L 97.5 F L 98.1 F Pulse Rate 85 81 80 Respiratory Rate 20 20 20 Blood Pressure 137/75 118/72 132/74 Pulse Oximetry 97 96 98 12/07/18 00:23 12/07/18 04:49 12/07/18 08:00 Temperature 98.1 F 97.6 F 97.9 F Pulse Rate 71 72 82 Respiratory Rate 20 20 22 Blood Pressure 124/59 L 125/65 120/58 L Pulse Oximetry 96 99 98 Intake & Output 12/06/18 12/07/18 12/07/18 18:59 06:59 18:59 Intake Total 515 / 515 1035 / 1035 Balance 515 / 515 1035 / 1035 Intake: IV 515 / 515 515 / 515 Vancomycin Inj 1,500 MG In NS 515 / 515 515 / 515 Inj 500 ML @ 257.5 mls/hr IV. SIG Q12H LOKESH Rx#:[id number] Oral 520 / 520 Other: # Voids 24 3 Date of Last Bowel Movement 12/06/18 # Bowel Movements 1 gen: nad heent: eomi msk/neur: suture removed in lumbar area and c/d/i. no pus cvs: s1/s2 resp: cta Urinary Catheter Management Indwelling Urethral Catheter: Cath placed during this visit: yes Reason for continuing: Acute urinary retention Insertion date: 11/07/18 Insertion time: 10:55 Results Labs CBC & Chem 7: 11/23/18 07:49 12/05/18 06:11 Procedures Procedures: s/p L4/5 laminectomies for decompression of cauda equina Assessment and Plan Plan patient is a 58 year old male presenting with back pain noted to have acute cauda equina syndrome + abscess formation s/p surgical intervention and abx - clear for dsicharge - neuro[facility]x [facility] discharge [facility] - return to ED for new weakness/backpain - medications precribed to pharmacy refer to d/c summary for futher discharge plans from 12/06. Patient dc delayed yesterday but clear today Progress Note: Quality VTE Deep Vein Thrombosis/Pulmonary Embolism Present on Admission: No
--- NOTE | 2018-12-10 08:13 | MP ---
cc: Satinder Garcia MD DATE OF OPERATION: 11/23/2018 PREOPERATIVE DIAGNOSIS: Postoperative lumbar wound infection. POSTOPERATIVE DIAGNOSIS: Postoperative lumbar wound infection. PROCEDURE PERFORMED: L4-S1 wound drainage, revision washout. ANESTHESIA: General endotracheal anesthesia. SURGEON: Satinder Garcia MD. ESTIMATED BLOOD LOSS: Less than 75 mL. PATHOLOGY: Aerobic and anaerobic wound cultures sent. COMPLICATIONS: None. CONDITION: Back to the recovery room, extubated, awake, alert, following commands, moving all 4 extremities well. INDICATIONS: The patient is a 58-year-old male who was admitted to the hospital on 11/06/2018 for cauda equina syndrome. He subsequently underwent lumbar laminectomy of L4-L5 and decompression of his cauda equina. The patient developed swelling of the wound in the back; and several weeks later neurosurgery was reconsulted. The surgery had been done by one of my partners, Dr. Renny Prajapati. He was reevaluated and imaging studies revealed a fluid collection. The patient had been febrile. ESR and CRP were markedly elevated. At the time that we were consulted, the patient had been on vancomycin antibiotic therapy for 5 days. Examination of the wound externally revealed an erythematous, swollen, angry red area consistent with a wound infection. I had an extensive discussion with the patient regarding risks, benefits, and options for a reoperation for wound drainage and revision washout. Risks include, but are not limited to infection, CSF leak, bowel and bladder dysfunction, failure to relieve symptoms, exacerbation of symptoms, spinal cord injury, nerve root injury, hemorrhage, reoperation, and possible were all explained. The patient indicated that he understood and wished for us to proceed. All questions were answered. Informed consent was given. PROCEDURE IN DETAIL: The patient was taken to the operating room from the holding room and after peripheral IVs were placed, he was placed on the operating table in the prone position with all pressure points padded. Next, the lumbosacral region skin was then shaved, prepped, and draped in usual sterile fashion. The old incision was outlined using sterile surgical marking pen. Then 20 mL of 1% lidocaine with epinephrine were injected subcutaneously. The incision was opened in the midline using a #15 scalpel blade. Immediately, there was a gush of a thick greenish-white discolored proteinaceous fluid consistent with pus. As we deepened our incision and dissected through with Metzenbaum scissors, the bipolar used for electrocautery for hemostasis. The old sutures were removed with a hemostat. We then deepend the incision opening it with the Bovie electrocautery down to the spinous process and the lamina. We began with a Pulsavac to copiously irrigate the field with vancomycin irrigation. We used 3 liters of this irrigation. This was followed with Betadine, which was irrigated and ultimately irrigated again with bacitracin antibiotic irrigation. Prior to this, aerobic and anaerobic cultures had been taken. Once we were satisfied that the wound indeed looked clean to visual inspection, the areas of tissue that had plaques of infection or were devitalized were debrided appropriately. This part of the operation was complete. A medium size Hemovac was placed in the epidural space, taken out through a separate stab incision. The incision was then closed in anatomic layers using #0 inverted interrupted Vicryl sutures for the deep muscle fascia, followed by 2-0 inverted interrupted Vicryl sutures for the subcutaneous tissue and dermis, followed by 3-0 nylon for the skin and 3-0 nylon was used to secure the drain at its exit site. At the end of the operation, all sponge and needle counts were correct. The patient tolerated the procedure well and was taken back to the recovery room, extubated, awake, alert, following commands, moving all 4 extremities well. No change from his preoperative state. MD GREG Li/giovanna , 05:42 AM , 05:55 AM MANJINDER
== END 2018-12-07 10:10 | disposition home or self-care (01) | DRG 501 ==
LOC: NEPC 20:51 → NEDA 23:47 → N05 11-07 03:57
PROVIDERS: ADMIT Internal Medicine; ATTEND Internal Medicine
CPT/HCPCS: 51798; 71010; 71045; 72020; 72141; 72148; 72158; 76000; 76937; 80048; 80053; 80202; 82310; 82565; 83735; 84100; 85025; 85027; 85610; 85651; 85652; 85730; 86140; 87015; 87070; 87102; 87116; 87205; 87206; 90471; 90658; 90686; 93005; 97110; 97116; 97162; 97166; 97530; 97535; 99285; A9585; G0008; J0690; J1100; J1170; J1580; J1644; J1885; J1956; J2175; J2250; J2270; J2370; J2405; J2704; J2710; J3010; J3370; J7030; J7040; J7050; J7120; Q2038